=== PATIENT | male | born 1980 | race Caucasian/White ===

== ENCOUNTER → 2018-05-06 10:02 | Outpatient (CLI) | payer OTHER, SELFPAY | PROVIDERS: Family Provider Nurse Practitioner; PCP Nurse Practitioner; Visit Provider Nurse Practitioner | DX: R06.02 Shortness of breath (principal) | CPT/HCPCS: 71046 ==

== ENCOUNTER → 2018-05-06 10:39 | Outpatient (CLI) | payer OTHER, SELFPAY | PROVIDERS: Family Provider Nurse Practitioner; PCP Nurse Practitioner; Visit Provider Nurse Practitioner | DX: R00.2 Palpitations (principal) | CPT/HCPCS: 93225; 93226 ==

== ENCOUNTER → 2018-07-01 10:06 | Outpatient (CLI) | payer OTHER, SELFPAY ==
--- NOTE | 2018-07-01 10:08 | STEWCON_ITS ---
Reason For Study: CHEST PAIN Stress Results Protocol: Stress Echocardiogram Maximum Predicted HR: 181 bpm Target HR: 154 bpm% Maximum Pr edicted HR: 94 % DurationHeart Rate Stage (mm:ss) (bpm) BP BASELINE 70 120/80 MARVA PROTOCOL- STAGE 1 3:00 10 1 128/86 MARVA PROTOCOL- STAGE 2 3:00 12 3 140/84 MARVA PROTOCOL- STAGE 3 3:00 12 9 158/80 MARVA PROTOCOL- STAGE 4 3:00 14 1 166/84 MARVA PROTOCOL- STAGE 5 3:00 17 1 / RECOVERY 110 134/8 4 Stress Duration: 15:00 mm:ss Maximum Stress HR: 171 bpmME TS: 17 Baseline Echocardiogram Findings Stress Echo Wall motion Data Resting WMIntermediate WMStress WM Resting Wall Motion Wall Motion Stress All segments Normal. All segments Hyperkinetic. Ejection Fraction 55 %. Ejection Fraction 70 %. Stress Results Heart rate response: appropriate Blood pressure response: normal resting BP - appropriate response Arrhythmias: rare PAC / PVC during exercise and recovery Functional capacity: excellent Stopped secondary to: dyspnea. EKG Data Baseline ECG: NSR. Exercise ECG: no obvious ECG changes. Symptoms with Stress No c/o chest discomfort during exercise / recovery. Interpretation Summary Negative (adequate) Stress Echocardiogram Ordering Physician: Romain Leiva Referring Physician: Sara Horner VAT OPERATOR Performed By: Evie Tripathi, MELODIE, RVT
== END ==
PROVIDERS: Family Provider Nurse Practitioner; PCP Nurse Practitioner; Referring Provider Internal Medicine Cardiovascular Disease; Visit Provider Internal Medicine Cardiovascular Disease
DX: R07.9 Chest pain, unspecified (principal)
CPT/HCPCS: 93017; 93350

== ENCOUNTER → 2019-06-22 16:51 | Outpatient (CLI) | payer OTHER, SELFPAY ==
[2018-06-19 16:08] VITALS: BMI 31.4
--- NOTE | 2019-06-22 16:53 | RAD_ITS ---
STUDY: X-RAY - RIGHT ELBOW REASON FOR EXAM: Male, 38 years old. Pain TECHNIQUE: 3 view(s) of the elbow. COMPARISON: None. FINDINGS: The bones of the elbow are intact and located. Mineralization is normal. Soft tissues are intact. There is no joint effusion. RAD/Elbow min 3 Views IMPRESSION: Normal x-ray examination of the elbow. Electronically Signed: Peter Arango, at 19:46 EDT Tel , Service support ,
== END ==
PROVIDERS: Family Provider Nurse Practitioner; PCP Nurse Practitioner; Referring Provider Nurse Practitioner; Visit Provider Nurse Practitioner
DX: M25.521 Pain in right elbow (principal)
CPT/HCPCS: 73080

== ENCOUNTER → 2023-01-26 | Outpatient (CLI) | payer BC, SELFPAY ==
[2023-01-26 10:01] LABS: Absolute Lymphocyte Count 1.81 X10^3/uL (0.83-4.51); Absolute Neutrophil Count 2.7 X10^3/uL (2.0-7.7); Basophil# 0.03 X10^3/uL; Basophil% 0.6 % (0-1); Eosinophil# 0.13 X10^3/uL; Eosinophils% 2.6 % (0-5); Hematocrit 49.6 % (40-54); Hemoglobin 17.1 g/dL (13.0-16.5); Lymphocyte # 1.81 X10^3/ul (0.83-4.51); Lymphocyte % 35.8 % (19-41); Mean Corp Hgb Conc 34.5 g/dL (32-36); Mean Corpuscular Hgb 30.8 pg (27.0-32.0); Mean Corpuscular Volume 89.4 fL (80-94); Mean Platelet Vol. 10.3 fl (6.2-12.0); Monocyte# 0.39 X10^3/uL; Monocyte% 7.7 % (0-10); NRBC Flagged by Analyzer 0 % (0-5); Neutrophil # 2.66 X10^3/uL (2.7-7.7); Neutrophil % 52.7 % (47-70); Platelet Count 205 K/mm3 (150-450); RBC Distribution Width CV 11.9 % (11.6-14.6); Red Blood Count 5.55 M/mm3 (4.6-6.2); White Blood Count 5.1 K/mm3 (4.4-11.0)
[2023-01-26 10:18] LABS: ALB/GLOB Ratio 1.3 RATIO (0.9-2.4); AST(SGOT) 28 U/L (15-37); Alanine Aminotransfer ALT/SGPT 27 U/L (16-61); Albumin, Serum 4.1 g/dL (3.2-5.0); Alkaline Phosphatase 84 U/L (45-117); Anion Gap 7 (5-15); BUN 15 mg/dL (7-18); BUN/Creat Ratio 20.3 RATIO (10-20); Chloride 108 mmol/L (98-107); Cholesterol 183 mg/dL (200); Creatinine, Serum 0.74 mg/dL (0.70-1.30); EST Glomerular Filtration Rate 122 mL/min (>60); Est Glom Filt Rate - Afr Amer 148 mL/min (>60); Globulin 3.2 g/dL (2.2-4.2); Glucose 84 mg/dL (74-106); High Density Lipoprotein 35 mg/dL; Potassium 4.3 mmol/L (3.5-5.1); Protein, Total 7.3 g/dL (6.4-8.2); Sodium Level 142 mmol/L (136-145); Triglycerides 220 mg/dL; Very Low Density Lipoprotein 44 mg/dL (5-40)
[2023-01-28 09:09] LABS: Vitamin D,25 Hydroxy 35.1 ng/mL
== END | disposition home or self-care (01) ==
LOC: LAB 08:56
PROVIDERS: PCP Nurse Practitioner Family; Referring Provider Nurse Practitioner Family; Visit Provider Nurse Practitioner Family
DX: E55.9 Vitamin D deficiency, unspecified (principal); Z13.220 Encounter for screening for lipoid disorders; F41.9 Anxiety disorder, unspecified
CPT/HCPCS: 36415; 80053; 80061; 82306; 85025

== ENCOUNTER 2023-04-21 13:45 | Emergency (ER) | payer BC, SELFPAY ==
[2023-04-21 13:45] VITALS: BP 134/98; PULSE 93; RESP 18; TEMP 36.2; O2SAT 98; BMI 32.3
[2023-04-21 13:49] VITALS: RESP 17; O2SAT 98
--- NOTE | 2023-04-21 14:03 | EDS_ITS ---
HPI History of Present Illness Chief Complaint: Eye Problem Detail of Chief Complaint: Right eye visual change. Informant: patient Onset/Context/Timing Location: Right Eye Onset: Days Context: Gradual Onset Timing: Continuous Current Severity: Mild Maximum Severity: Mild Associated Symptoms Associated Symptoms - Eyes: Negative for Burning, Crusting, Drainage, Eyelid swelling, Foreign body sensation, Itching, Matting, Pain, Photophobia or Redness Visual Changes: right: Blurred vision History of injury: No Visual correction: Glasses and Corrective contact lenses Narrative Narrative: 42-year-old male diagnosed with right eye optic nerve inflammation by his alcohol Dr. Osborne and got upset about it on a Saturday this MrJersey Greers with the optic nerve inflammation his obesity he said he saw you on in the office you diagnosed him with suspected optic nerve inflammation. Patient states he feels like it is getting worse. I did speak to his medical research scientist Dr. sOborne. If possible she would like the MRI done today. Prior similar symptoms: Yes Recent Illness/Hospitalization: No PFSH PFSH Medical History (Updated 04/21/23 @ 18:[address] Jr Benítez MD) Carpal tunnel syndrome on right Chewing tobacco use Essential hypertension Palpitations Premature supraventricular beats Home Medications amlodipine 2.5 mg tablet 2.5 mg PO DAILY #90 tabs 07/17/22 [Rx Last Taken Unknown] aspirin 81 mg capsule 81 mg PO DAILY 04/21/23 [History Last Taken Unknown] Allergy/AdvReac Type Severity Reaction Status Date / Time duloxetine [From Cymbalta] Allergy Severe foggy Verified 04/21/23 13:47 Penicillins AdvReac Severe Diarrhea, Verified 04/21/23 13:47 Vomiting Surgical History History of tonsillectomy Social History Smoking Status: Never smoker alcohol intake: current substance use type: does not use ROS ROS ED ROS Narrative Right eye decreasing vision. Review of Systems ROS Unobtainable: Denies due to encephalopathy Constitutional Constitutional ED: Denies chills or fever(s) Eyes Eyes: Reports blurry vision and change in vision; Denies diplopia ENT ENT ED: Denies ear pain or rhinorrhea Cardiovascular Cardiovascular: Denies chest pain Respiratory/Chest Respiratory/Chest: Denies cough Gastrointestinal Gastrointestinal: Denies abdominal pain Genitourinary Genitourinary ED: Denies dysuria or hematuria Musculoskeletal Musculoskeletal: Denies arthralgias Integumentary Denies abscess Neurologic Neurologic: Denies headache(s) Psychiatric Psychiatric: Denies anxiety Endocrine Endocrinology: Denies polydipsia Hematologic/Lymphatic Hematologic/Lymphatic: Denies easy bleeding Allergic/Immunologic Allergic/Immunologic ED: Denies mouth swelling or tongue swelling EXAM Physical Exam Narrative Exam Narrative: 3-year-old male no acute distress. Vital signs stable afebrile. HEENT exam pupils round reactive light extra motions are intact. No facial droop. Lungs clear. Heart regular rhythm. Abdomen soft nontender. Moving all 4 extremities. Neurologic exam 5-5 meat blender strength. Dorsi plantarflexion intact. Subjective decreased vision right eye. He wears glasses. Const Vital Signs: 04/21/23 13:45 04/21/23 13:49 Temperature 97.1 F L Temperature Source Temporal Pulse Rate 93 Respiratory Rate 18 17 Blood Pressure 134/98 H Blood Pressure Mean 110 Pulse Ox 98 98 Oxygen Delivery Method Nasal Cannula Room Air Positive well nourished and well developed; Negative for obese, cachectic, contractures or unkempt General Appearance ED: well developed and NAD; Negative for unkempt, cachectic or contractures Nutritional Appearance: Negative for cachectic or obese HEENT Denies other atraumatic; Negative for trauma, tenderness or other Neck no lymphadenopathy, supple and no JVD General: Negative for tenderness Resp normal respiratory effort, no retractions, no use of accessory muscles and clear to auscultation bilaterally Cardio regular rate, regular rhythm, S1 normal heart sound, S2 normal heart sound and no murmurs GI non-tender, non-distended and no masses Inspection: Negative for other Auscultation: normoactive bowel sounds Palpation: soft Back/Spine no CVA tenderness General Back: Negative for CVA tenderness Extremity normal to inspection General Extremety ED: Negative for edema General Extremity: Negative for edema Neuro oriented x3, CN's II-XII intact bilaterally and moves all extremities Sensorium / Orientation: alert, oriented to person, oriented to place and oriented to time; Negative for orientation impaired Motor Exam: strength 5/5 throughout Psych Appearance: Negative for unkempt Attitude: No agitated Mood & Affect: Negative for depressed, anxious or tearful Skin no wounds Lesions: no lesions Rashes: no rashes Trauma: Negative for abrasion or laceration MDM MDM MDM Narrative Medical decision making narrative: 42-year-old male with worsening vision in his right eye. Patient has seen Dr. Osborne with ophthalmology in the last several months. The concern is for an optic nerve inflammation. I did speak to her today after my evaluation the patient. She wanted an MRI done of the brain and orbits. Patient's visual acuity in the ER was 2015 left and 20/20 right with the patient's glasses on. MRI of the orbits was read as normal by the radiologist. Discussed with Dr. Osborne. Patient be discharged home with outpatient follow-up. Were trying to get the MRI of the brain evaluated. History & Record Review Discussion w/independent historian: Patient and Family Discharge Plan Triage Chief Complaint: Eye Problem ED Provider: Jr Benítez Dx/Rx/DC Orders Clinical Impression: Alteration in vision Instructions: ED Blurred Vision Prescriptions: No Action aspirin 81 mg capsule 81 mg PO DAILY amlodipine 2.5 mg tablet 2.5 mg PO DAILY Qty: 90 3RF Primary Care Provider: Jennifer Mora Referrals: Angélica Osborne MD [Med Staff - Active Staff] - As soon as possible Jennifer Mora, [employer] [Primary Care Provider] - Activity Restrictions/Additional Instructions: MRI was read as normal. I spoke to Dr. Osborne. Call her office and follow-up with her in 1 to 2 weeks. Disposition Disposition: Home, Self Care
--- NOTE | 2023-04-21 14:10 | MRI_ITS ---
EXAM: MR ORBITS WITHOUT AND WITH INTRAVENOUS CONTRAST () CLINICAL INDICATION: right eye visual change, BLURRED VISION X 1 WEEK; PROGRESSIVELY WORSENING TECHNIQUE: Multiplanar and multisequence MR images of the orbits without and with intravenous contrast. CONTRAST: 18ML IV CLARISCAN COMPARISON: No relevant prior studies available. FINDINGS: ORBITS: Unremarkable. Optic globes are unremarkable.. Unremarkable optic nerve sheath and nerves. Unremarkable intraconal and extraconal spaces. Extra-ocular muscles are unremarkable. OPTIC CHIASM: Unremarkable. Unremarkable chiasm and post chiasmatic tracts. SELLA: Unremarkable. Pituitary gland is normal in size and signal. Normal sella Turcica and suprasellar structures. CAVERNOUS SINUSES: Unremarkable. SINUSES: Unremarkable as visualized. Clear. SOFT TISSUES: Unremarkable. Preseptal and superficial soft tissues are unremarkable. Lacrimal glands are unremarkable. VASCULATURE: Unremarkable. Superior ophthalmic veins are symmetric. MRI/Orbit Face Neck W/WO Contrast IMPRESSION: Normal MRI of the orbits. Electronically Signed: Timoteo Fragoso MD at 17:17 EDT ,
[2023-04-21 17:02] VITALS: BP 131/96; PULSE 71; RESP 17; O2SAT 99
== END 2023-04-21 18:51 | disposition home or self-care (01) ==
PROVIDERS: Emergency Provider Emergency Medicine; PCP Nurse Practitioner Family; Visit Provider Emergency Medicine
DX: H53.8 Other visual disturbances (principal); I10 Essential (primary) hypertension; Z97.3 Presence of spectacles and contact lenses; Z79.82 Long term (current) use of aspirin; Z79.899 Other long term (current) drug therapy
CPT/HCPCS: 70543; 99284; A9575; A4216

== ENCOUNTER → 2023-04-25 | Outpatient (CLI) | payer BC, SELFPAY ==
[2023-04-25 18:08] LABS: Absolute Lymphocyte Count 1.86 X10^3/uL (0.83-4.51); Absolute Neutrophil Count 4.6 X10^3/uL (2.0-7.7); Basophil# 0.03 X10^3/uL; Basophil% 0.4 % (0-1); Eosinophil# 0.06 X10^3/uL; Eosinophils% 0.9 % (0-5); Hematocrit 50.2 % (40-54); Hemoglobin 17.2 g/dL (13.0-16.5); Lymphocyte # 1.86 X10^3/ul (0.83-4.51); Lymphocyte % 26.5 % (19-41); Mean Corp Hgb Conc 34.3 g/dL (32-36); Mean Corpuscular Hgb 30.7 pg (27.0-32.0); Mean Corpuscular Volume 89.5 fL (80-94); Mean Platelet Vol. 10.7 fl (6.2-12.0); Monocyte# 0.41 X10^3/uL; Monocyte% 5.8 % (0-10); NRBC Flagged by Analyzer 0 % (0-5); Neutrophil # 4.62 X10^3/uL (2.7-7.7); Neutrophil % 65.7 % (47-70); Platelet Count 213 K/mm3 (150-450); RBC Distribution Width CV 12.1 % (11.6-14.6); RBC Distribution Width SD 39.5 fl (35.1-43.9); Red Blood Count 5.61 M/mm3 (4.6-6.2)
[2023-04-25 18:22] LABS: Erythrocyte Sedimentation Rate 2 mm/hr (0-20)
[2023-04-25 18:42] LABS: CRP < 2.90 mg/L (0.0-3.0)
[2023-04-25 20:16] LABS: HIV - WCH Non-Reactive (Nonreactive); Syphilis Antibodies Non-reactive
[2023-05-04 14:10] LABS: Angiotensin Convert Enzyme 45 U/L (14-82); B. henselae IgG Negative titer (Neg:<1:320); B. henselae IgM Negative titer (Neg:<1:100); B. quintana IgG Negative titer (Neg:<1:320); B. quintana IgM Negative titer (Neg:<1:100); Cytoplasmic Ab (C-ANCA) <1:20 titer (Neg:<1:20); HLA B27 Negative (.); PROEL- A/G Ratio 1.5 (0.7-1.7); PROEL- Albumin 4.4 g/dL (2.9-4.4); PROEL- Alpha-1 Globulin 0.2 g/dL (0.0-0.4); PROEL- Alpha-2 Globulin 0.5 g/dL (0.4-1.0); PROEL- Beta Globulin 1.1 g/dL (0.7-1.3); PROEL- Gamma Globulin 1.1 g/dL (0.4-1.8); PROEL- Globulin, Total 2.9 g/dL (2.2-3.9); PROEL- TOTAL PROTEIN 7.3 g/dL (6.0-8.5); Perinuclear Ab (P-ANCA) <1:20 titer (Neg:<1:20); QNTFERON TB Mitogen Value > 10.00 IU/mL (.); QNTFERON TB Nil Value 0.02 IU/mL (.); QNTFERON TB1+ Ag Value 0.05 IU/mL (.); QNTFERON TB2+ Ag Value 0.04 IU/mL (.); QNTIFERON TB Positive Criteria Negative (Negative); Toxoplasma Gondii IgG 11.9 IU/mL (0.0-7.1); Toxoplasma Gondii IgM < 3.0 AU/mL (0.0-7.9); Treponema palladium Ab (FTA) Non Reactive (Non Reactive)
== END | disposition home or self-care (01) ==
PROVIDERS: PCP Nurse Practitioner Family
DX: I10 Essential (primary) hypertension (principal); H47.10 Unspecified papilledema; H35.033 Hypertensive retinopathy, bilateral; H43.393 Other vitreous opacities, bilateral
CPT/HCPCS: 36415; 81374; 82164; 83036; 84165; 85025; 85652; 86140; 86256; 86480; 86611; 86703; 86777; 86778; 86780

== ENCOUNTER → 2023-11-27 | Outpatient (CLI) | payer BC, SELFPAY ==
--- OUTSIDE RECORDS SUMMARY | 2023-11-27 08:03 | XMS RPT_ITS | CCD ---
Author Name Unknown Address [address] [place] [address] Organization [facility] Care Team Providers Care Hand Carver Name Role Phone Sara Horner Unavailable Lata Jaime Unavailable Romain Leiva Unavailable Kervin Ma Unavailable Unavailable Unavailable Unavailable Kj Hung Unavailable Sara Horner Unavailable Unavailable Sara Horner Unavailable Lata Jaime Unavailable Dr. Kj Hung MD Unavailable [phone] Romain Leiva MD Unavailable Jennifer Mora CNP Unavailable Kervin Rubin LPN Unavailable Unavailable Kezia Sarkar LPN Unavailable Unavailable Unavailable Unavailable Sara Horner Attending Unavailable Sara Horner Referring Unavailable Sara Horner Consulting Unavailable Maikol Bob Unavailable Allergies Allergy Classification Reported Allergen(s) Allergy Type Date of Onset Reaction(s) Facility (11 sources) DULoxetine; Translations: [Cymbalta *ANTIDEPRESSANTS *] Drug Allergy [facility] Work Phone: Medications Completed/Discontinued Medications Medication Drug Class(es) Dates Sig (Normalized) Sig (Original) amLODIPine 2.5 mg oral tablet (5 sources) Dihydropyridine Calcium Channel Latoya take 1 mg by mouth once daily amLODIPine 2.5 mg oral tablet daily (2.5 mg) Active Comments: Per cardio Problems Active Problems Problem Classification Problem Date Documented Da te Episodic/Chronic Anxiety disorders (20 sources) Panic disorder; Translations: [Anxiety] Resolved: 06-25-2017 06-25-2017 Chronic Past or Other Problems Problem Classification Problem Date Documented Da te Episodic/Chronic Allergic reactions (5 sources) Contact dermatitis; Translations: [Contact Dermatitis] Resolved: 06-25-2017 06-25-2017 Episodic Disorders of teeth and jaw (11 sources) Jaw pain Resolved: 06-25-2017 06-25-2017 Episodic Headache; including migraine (5 sources) Headache; Translations: [Headache] Resolved: 06-25-2017 06-25-2017 Episodic Lymphadenitis (5 sources) Lymphadenitis; Translations: [Lymphadenitis] Resolved: 06-25-2017 06-25-2017 Episodic Nonspecific chest pain (5 sources) Chest pain at rest; Translations: [Chest Pain at Rest] Resolved: 06-25-2017 06-25-2017 Episodic Other circulatory disease (6 sources) H/O: hypertension; Translations: [Hypertension] Resolved: 06-25-2017 06-25-2017 Episodic Other nervous system disorders (4 sources) Carpal tunnel syndrome of right wrist; Translations: [Carpal tunnel syndrome on right] 02-17-2019 Other skin disorders (6 sources) H/O: skin disorder; Translations: [Contact Dermatitis] Resolved: 06-25-2017 06-25-2017 Episodic Residual codes; unclassified (12 sources) H/O: Disorder; Translations: [Lymphadenitis] Resolved: 06-25-2017 06-25-2017 Episodic Unclassified (6 sources) Carpal tunnel syndrome on right Unclassified (6 sources) History of headache; Translations: [Headache] Resolved: 06-25-2017 06-25-2017 Unclassified (11 sources) odontogenic pain Resolved: 06-25-2017 06-25-2017 Unclassified (3 sources) BMI 31.0-31.9,adult Unclassified (3 sources) Elbow pain, right Viral infection (11 sources) Genital warts Resolved: 06-25-2017 06-25-2017 Episodic Results Test Name Value Interpretation Reference Range Facil ity Vital Signs Date Time Vital Sign Value Performing Clinician Facility 01-21-2023 14:51-0400 Body height 167.64 cm Kezia Sarkar LPN [facility] Work Phone: 01-21-2023 14:51-0400 Body mass index (BMI) [Ratio] 33.25 kg/m2 Kezia Sarkar ABBY [facility] Work Phone: 01-21-2023 14:51-0400 Body surface area Derived from formula 2.03 m2 Kezia Sarkar ABBY [facility] Work Phone: 01-21-2023 14:51-0400 Body temperature 98.2 [degF] Kezia Sarkar ABBY [facility] Work Phone: Encounters Encounter Date Encounter Type Care Provider Facility Start: 04-23-2023 End: 04-23-2023 Annotation/Addendum Sara Horner [facility] Start: 01-28-2023 End: 01-28-2023 Annotation/Addendum Sara Horner [facility] Start: 01-21-2023 ambulatory Sara Guptacar [facility] Start: 01-21-2023 End: 01-26-2023 Office outpatient visit 15 minutes [facility] Start: 01-21-2023 Review Sara Guptavilmasantino [facility] Start: 06-22-2019 End: 06-22-2019 Office outpatient visit 15 minutes Sara Horner [facility] Start: 06-22-2019 Review Sara Guptavilmasantino [facility] Start: 02-17-2019 End: 02-17-2019 Office outpatient visit 15 minutes Sara Horner [facility] Start: 02-17-2019 Review Sara Guptavilmasantino [facility] Start: 08-19-2018 End: 08-19-2018 Office outpatient visit 25 minutes Sara [facility] Start: 05-20-2018 End: 05-20-2018 Office outpatient visit 15 minutes Sara [facility] Start: 05-09-2018 End: 05-09-2018 Annotation/Addendum Sara Horner [facility] Start: 05-06-2018 End: 05-06-2018 Annotation/Addendum Sara Carter [facility] Start: 05-06-2018 End: 05-06-2018 Office outpatient visit 25 minutes Sara [facility] Start: 08-23-2017 End: 08-23-2017 Office outpatient visit 10 minutes Sara Horner [facility] Start: 08-05-2017 End: 08-05-2017 Annotation/Addendum Sara Horner [facility] Start: 06-25-2017 End: 06-25-2017 Office outpatient visit 15 minutes Sara Horner [facility] Start: 03-30-2016 End: 03-30-2016 Phone Encounter Sara Horner [facility] Start: 03-28-2016 End: 03-28-2016 Office outpatient visit 15 minutes Sara Horner [facility] Start: 02-07-2016 End: 02-07-2016 Annotation/Addendum Sara Horner [facility] Start: 02-06-2016 End: 02-06-2016 Office outpatient visit 15 minutes Sara Horner [facility] Start: 04-04-2015 End: 04-04-2015 Office outpatient visit 25 minutes Sara Horner [facility] Start: 03-21-2015 End: 03-21-2015 Office outpatient new 45 minutes Sara Horner [facility] Procedures Date Procedure Procedure Detail Performing Clinician Start: 05-02-2023 End: 05-02-2023 Cardiology Visit Report Procedure Note: See Note; NOTES: [facility] [address] [place] [address] OFFICE VISIT Date of Service: 05/02/23 MR#: [id number] Acct: [id number] Name: EMERY PAREDES Rep #: [id number] : 1980 Provider: ARISTEO sweeney Age/Sex: 42/M Location: [facility] Status: Signed [facility] History of Present Illness Details: This is a 42-year-old white male who presents today for outpatient cardiovascular follow-up based upon concerns of palpitations/cardiac ectopy and hypertension. He denies chest, arm, jaw, or neck discomfort. He states intermittent palpitations daily. This is self limiting and resolves on its own. He denies bilateral lower extremity edema. He denies claudication. He states shortness of breath with activity such as edging his yard. He feels this to be more than that activity should cause. He denies shortness of breath at rest, orthopnea, or PND. He denies chronic cough. He denies significant, sudden weight gain. He denies lightheadedness, dizziness, near-syncope, or syncope. He denies blood in urine, blood in stool, or epistaxis. He denies fever with chills. He denies myalgia. He denies fatigue. His exercise level has remained stable. Intake Vital Signs 01/12/22 13:14 04/21/23 13:45 05/02/23 14:32 Height 5 ft 6 in 5 ft 6 in 5 ft 6 in Weight: 204 lb BMI 32.9 BP 135/91 H Blood Pressure Location Lt brachial Position Sitting Respiration 18 Pulse 92 Pulse Source Monitor Pulse Oximetry (%) 96 Intake Visit Reasons: 1 Y FU//PREV PFM Search Engine Optimization Manager Required: No Is patient in pain?: No Allergies duloxetine [From Cymbalta] Allergy (Severe, Verified 05/02/23 14:32) foggy Penicillins Adverse Reaction (Severe, Verified 05/02/23 14:32) Diarrhea, Vomiting Medications aspirin 81 mg capsule 81 mg PO DAILY 04/21/23 [History Confirmed 04/21/23] amlodipine 5 mg tablet 5 mg PO DAILY #90 tabs 05/02/23 [Rx Confirmed 05/02/23] prednisone 50 mg tablet 60 mg PO DAILY 05/02/23 [History Confirmed 05/02/23] PFS Medical History Carpal tunnel syndrome on right Chewing tobacco use Essential hypertension Palpitations Premature supraventricular beats Surgical History History of tonsillectomy Social History Smoking Status: Never smoker alcohol intake: current substance use type: does not use ROS Const Const: Negative for fatigue, weakness, body ache, fever(s) or chills ENT ENT: Negative for dizziness or Nosebleed/epistaxis Cardio Chest Pain: No Palpitations: No Edema: None Muscle aches with walking: None Resp Respiratory: Negative for SOB with activity, SOB at rest, SOB orthopnea SOB lying down, Cough or paroxysmal nocturnal dyspnea GI GI: Negative nausea, vomiting blood/hematemesis, bright, red blood in stools or black,tarry stools : Negative for hematuria or frequent nighttime urination/ nocturia Musc Musc: Negative for muscle aches/ myalgia Skin Skin: Negative non-healing lesions or rash Neuro Neuro: Negative for dizziness, lightheadedness, near syncope, syncope, orthostatic symptoms or weakness Endo Endo: Negative for fatigue Allergy Allergy/Immunology: Negative for rash Cardiology Exam Const Appearance: cooperative, healthy appearing, comfortable and no acute distress Nutritional Appearance: well nourished and obese Orientation: alert, awake and oriented x3 Head Head: normal to inspection Ears: hearing grossly normal bilaterally Nose: external nose normal Face and Sinus: face symmetric Mouth: moist mucous membranes Eyes General: appearance normal, both eyes and all related structures Eyelids: eyelids normal EOM: EOM intact bilaterally Neck Neck: normal visual inspection and no JVD Carotids: normal carotid upstroke Chest Chest inspection: normal inspection of the chest, symmetric chest movement and normal respiratory effort; Negative cough Auscultation: Bilateral: Clear to Auscultation Cardio Rate: regular rate Rhythm: regular rhythm Heart sounds: S1 normal and S2 normal; Negative rub, gallop or murmur GI GI: normal to inspection and obese Neuro General: patient alert, patient awake, patient oriented x3 and CN's II-XI intact bilaterally Skin Skin: no rashes or lesions noted Extremities Pulses: Normal: Right Posterior Tibial Pulse, Left Posterior Tibial Pulse, Right Radial Pulse and Left Radial Pulse Lower Extremity Edema: None: Bilateral Psych Psychological: normal affect Supplemental Info Supplemental Information Echocardiogram: 04/07/2015 Interpretation Summary The estimated ejection fraction is 65 %. Normal diastology for age. Unable to estimate RV systolic pressure. Normal transthoracic echocardiogram. Stress Echo: 07/01/2018 Interpretation Summary Negative (adequate) Stress Echocardiogram Labs: LDL Cholesterol 104 mg/dL (0-130) HDL Cholesterol 35 mg/dL (40-) L Cholesterol 183 mg/dL (200) Triglycerides 220 mg/dL (-199) H Diagnostics: Electrocardiogram Stress Echocardiogram Chest X-Ray Pulmonary: No Data to Display Past Visits: Cardiology Visit 05/02/23 Assessment and Plan Assessment and Plan (1) Palpitations: Status: Acute Plan: This appears stable. We will continue to observe. Holter monitor in April 2018 showed ventricular ectopy 0.3% and supraventricular to be 0.6%. Echocardiogram in March 2015 showed ejection fraction of 65%. Stress test in June 2018 was negative for ischemia. (2) Essential hypertension: Status: Chronic Plan: He has seen multiple print support specialist with concerns of obstructive sleep apnea or elevated blood pressure causing issues. His higher blood pressure today may be result of prednisone. Due to eye concerns, will advance amlodipine to 5 mg p.o. daily. He was asked to monitor his blood pressure regularly and contact our office if his blood pressure remains elevated to consider further medication adjustment. He currently has polysomnogram pending for further evaluation. Risk factor and lifestyle modification was strongly encouraged. Medications: Changed From amlodipine 2.5 mg PO DAILY 90 tabs 3RF To amlodipine 5 mg PO DAILY 90 tabs 3RF Plan Details Additional Comments: Thank you for allowing us to participate in the patients plan of care, if you have any questions please do not hesitate to call. This note was generated using a voice recognition system and there may be incorrect words, spelling or punctuation that were not noted when reviewing the office note prior to saving. Portions of this documentation were copied and pasted from previous office visit notes to provide a cohesive continuity of the history. The note has been reviewed, edited, and updated, as necessary. Follow Up: 12-15 Months (BUSINESS DEVELOPMENT CONSULTANT) 6-7 Months (DIRECTOR PAYMENT/PA) Coding Level of Care Code Off vis,est,level 3 Diagnoses Palpitations R00.2 Essential hypertension I10 Coding Level of Care Code Off vis,est,level 3 Diagnoses Palpitations R00.2 Essential hypertension I10 05/02/23 1537 <Electronically signed by Zeke Pineda NP DIRECTOR PAYMENT-C> Date __ Zeke Pineda NP DIRECTOR PAYMENT-C Cosigner Signature: Date __ (if applicable) CC: DIRECTOR PAYMENTRenata Guptavilmasantino Start: 04-21-2023 End: 04-21-2023 Orbit Face Neck W/WO Contrast Procedure Note: See Note; NOTES: [facility] Imaging Services [address] [place] [address] [place] [address] Orbit Face Neck W/WO Contrast MR#: [id number] Acct: [id number] Name: EMERY PAREDES Rep #: [id number] : 1980 M 42 From: Timoteo Kaufman PCP: Jennifer Mora DIRECTOR PAYMENT-C Status: REG ER Study: Orbit Face Neck W/WO Contrast Date of Exam: Exam# [id number] Ordering Dr: Jr Benítez MD EXAM: MR ORBITS WITHOUT AND WITH INTRAVENOUS CONTRAST () CLINICAL INDICATION: right eye visual change, BLURRED VISION X 1 WEEK; PROGRESSIVELY WORSENING TECHNIQUE: Multiplanar and multisequence MR images of the orbits without and with intravenous contrast. CONTRAST: 18ML IV CLARISCAN COMPARISON: No relevant prior studies available. FINDINGS: ORBITS: Unremarkable. Optic globes are unremarkable.. Unremarkable optic nerve sheath and nerves. Unremarkable intraconal and extraconal spaces. Extra-ocular muscles are unremarkable. OPTIC CHIASM: Unremarkable. Unremarkable chiasm and post chiasmatic tracts. SELLA: Unremarkable. Pituitary gland is normal in size and signal. Normal sella Turcica and suprasellar structures. CAVERNOUS SINUSES: Unremarkable. SINUSES: Unremarkable as visualized. Clear. SOFT TISSUES: Unremarkable. Preseptal and superficial soft tissues are unremarkable. Lacrimal glands are unremarkable. VASCULATURE: Unremarkable. Superior ophthalmic veins are symmetric. MRI/Orbit Face Neck W/WO Contrast IMPRESSION: Normal MRI of the orbits. Electronically Signed: Timoteo Fragoso MD at 17:17 EDT Reading Location ID and State: [facility] / [place] , Service support , CC: DIRECTOR PAYMENT-C Jennifer Mora; Dr. Jr Benítez MD Staying Machine Operator: Signed Sara Horner Start: 04-21-2023 End: 04-21-2023 Emergency Department Summary Procedure Note: See Note; NOTES: [facility] Medical Records Department [address] [place] [address] Emergency Department Summary 04/21/23 MR#: [id number] Acct: [id number] Name: EMERY PAREDES Rep #: [id number] : 1980 42 From: Jr Benítez MD PCP: ARISTEO Chen Status:DEP ER Location: ED HPI History of Present Illness Chief Complaint: Eye Problem Detail of Chief Complaint: Right eye visual change. Informant: patient Onset/Context/Timing Location: Right Eye Onset: Days Context: Gradual Onset Timing: Continuous Current Severity: Mild Maximum Severity: Mild Associated Symptoms Associated Symptoms - Eyes: Negative for Burning, Crusting, Drainage, Eyelid swelling, Foreign body sensation, Itching, Matting, Pain, Photophobia or Redness Visual Changes: right: Blurred vision History of injury: No Visual correction: Glasses and Corrective contact lenses Narrative Narrative: 42-year-old male diagnosed with right eye optic nerve inflammation by his alcohol Dr. Osborne and got upset about it on a Saturday this Mr. Percy Greers with the optic nerve inflammation his obesity he said he saw you on in the office you diagnosed him with suspected optic nerve inflammation. Patient states he feels like it is getting worse. I did speak to his circulation representative Dr. Osborne. If possible she would like the MRI done today. Prior similar symptoms: Yes Recent Illness/Hospitalization: No PFSH PFSH Medical History (Updated 04/21/23 @ 18:[address] Jr Benítez MD) Carpal tunnel syndrome on right Chewing tobacco use Essential hypertension Palpitations Premature supraventricular beats Home Medications amlodipine 2.5 mg tablet 2.5 mg PO DAILY #90 tabs 07/17/22 [Rx Last Taken Unknown] aspirin 81 mg capsule 81 mg PO DAILY 04/21/23 [History Last Taken Unknown] Allergy/AdvReac Type Severity Reaction Status Date / Time duloxetine [From Cymbalta] Allergy Severe foggy Verified 04/21/23 13:47 Penicillins AdvReac Severe Diarrhea, Verified 04/21/23 13:47 Vomiting Surgical History History of tonsillectomy Social History Smoking Status: Never smoker alcohol intake: current substance use type: does not use ROS ROS ED ROS Narrative Right eye decreasing vision. Review of Systems ROS Unobtainable: Denies due to encephalopathy Constitutional Constitutional ED: Denies chills or fever(s) Eyes Eyes: Reports blurry vision and change in vision; Denies diplopia ENT ENT ED: Denies ear pain or rhinorrhea Cardiovascular Cardiovascular: Denies chest pain Respiratory/Chest Respiratory/Chest: Denies cough Gastrointestinal Gastrointestinal: Denies abdominal pain Genitourinary Genitourinary ED: Denies dysuria or hematuria Musculoskeletal Musculoskeletal: Denies arthralgias Integumentary Denies abscess Neurologic Neurologic: Denies headache(s) Psychiatric Psychiatric: Denies anxiety Endocrine Endocrinology: Denies polydipsia Hematologic/Lymphatic Hematologic/Lymphatic: Denies easy bleeding Allergic/Immunologic Allergic/Immunologic ED: Denies mouth swelling or tongue swelling EXAM Physical Exam Narrative Exam Narrative: 3-year-old male no acute distress. Vital signs stable afebrile. HEENT exam pupils round reactive light extra motions are intact. No facial droop. Lungs clear. Heart regular rhythm. Abdomen soft nontender. Moving all 4 extremities. Neurologic exam 5-5 big data software engineer strength. Dorsi plantarflexion intact. Subjective decreased vision right eye. He wears glasses. Const Vital Signs: 04/21/23 13:45 04/21/23 13:49 Temperature 97.1 F L Temperature Source Temporal Pulse Rate 93 Respiratory Rate 18 17 Blood Pressure 134/98 H Blood Pressure Mean 110 Pulse Ox 98 98 Oxygen Delivery Method Nasal Cannula Room Air Positive well nourished and well developed; Negative for obese, cachectic, contractures or unkempt General Appearance ED: well developed and NAD; Negative for unkempt, cachectic or contractures Nutritional Appearance: Negative for cachectic or obese HEENT Denies other atraumatic; Negative for trauma, tenderness or other Neck no lymphadenopathy, supple and no JVD General: Negative for tenderness Resp normal respiratory effort, no retractions, no use of accessory muscles and clear to auscultation bilaterally Cardio regular rate, regular rhythm, S1 normal heart sound, S2 normal heart sound and no murmurs GI non-tender, non-distended and no masses Inspection: Negative for other Auscultation: normoactive bowel sounds Palpation: soft Back/Spine no CVA tenderness General Back: Negative for CVA tenderness Extremity normal to inspection General Extremety ED: Negative for edema General Extremity: Negative for edema Neuro oriented x3, CN's II-XII intact bilaterally and moves all extremities Sensorium / Orientation: alert, oriented to person, oriented to place and oriented to time; Negative for orientation impaired Motor Exam: strength 5/5 throughout Psych Appearance: Negative for unkempt Attitude: No agitated Mood Affect: Negative for depressed, anxious or tearful Skin no wounds Lesions: no lesions Rashes: no rashes Trauma: Negative for abrasion or laceration MDM MDM MDM Narrative Medical decision making narrative: 42-year-old male with worsening vision in his right eye. Patient has seen Dr. Osborne with ophthalmology in the last several months. The concern is for an optic nerve inflammation. I did speak to her today after my evaluation the patient. She wanted an MRI done of the brain and orbits. Patient's visual acuity in the ER was 2015 left and 20/20 right with the patient's glasses on. MRI of the orbits was read as normal by the radiologist. Discussed with Dr. Osborne. Patient be discharged home with outpatient follow-up. Were trying to get the MRI of the brain evaluated. History Record Review Discussion w/independent historian: Patient and Family Discharge Plan Triage Chief Complaint: Eye Problem ED Provider: Jr Benítez Dx/Rx/DC Orders Clinical Impression: Alteration in vision Instructions: ED Blurred Vision Prescriptions: No Action aspirin 81 mg capsule 81 mg PO DAILY amlodipine 2.5 mg tablet 2.5 mg PO DAILY Qty: 90 3RF Primary Care Provider: Jennifer Mora Referrals: Angélica Osborne MD [Med Staff - Active Staff] - As soon as possible Jennifer Mroa NP-C [Primary Care Provider] - Activity Restrictions/Additional Instructions: MRI was read as normal. I spoke to Dr. Osborne. Call her office and follow-up with her in 1 to 2 weeks. Disposition Disposition: Home, Self Care What to do if you have Problems For any increased pain, shortness of breath, bleeding, nausea or vomiting, chest pain, or any unexpected problems, contact your Primary Care Provider. Call [facility] ([phone]) or report to the closest Emergency Room. Call 911 if necessary. 04/21/232137 <Electronically signed by Jr Benítez MD> Cosigner Signature (if applicable): CC: DIRECTOR PAYMENTRenata Mora Signed Sara Horner Start: 01-12-2022 End: 03-01-2022 Cardiology Visit Report Procedure Note: See Note; NOTES: [facility] [address] [place] [address] [address] [place] [address] OFFICE VISIT Date of Service: 01/12/22 MR#: [id number] Acct: [id number] Name: EMERY PAREDES Rep #: [id number] : 1980 Provider: Dr. Romain shah MD Age/Sex: 41/M [place] [facility] Status: Signed [facility] History of Present Illness Details: This is a 41-year-old white male who presents today for outpatient cardiovascular follow-up based upon concerns of palpitations/cardiac ectopy and hypertension. Since his last outpatient cardiovascular visit on 08-01-2020 he states he did have to reschedule his previously scheduled follow-up visit. He states overall he is doing well. He denies any ongoing frequent palpitations or rapid heart rates. There is been no near-syncope or syncope. He has had no ongoing issues of classic angina pectoris at rest or with exertion or obvious CHF/pulmonary edema. He states he may note a rare palpitation. He states it does not necessarily interfere with his lifestyle. He states he is doing well on his current medications. His heart rate and blood pressure do appear to be well controlled. Intake Vital Signs 01/12/22 13:14 Height 5 ft 6 in Weight: 188 lb 3 oz BP 112/78 Blood Pressure Location Lt brachial Position Sitting Respiration 16 Pulse 68 Pulse Source Auscultation Intake Visit Reasons: 1 Y FU Search Engine Optimization Manager Required: No Accompanied by: Self Allergies duloxetine [From Cymbalta] Allergy (Severe, Verified 01/12/22 13:17) foggy Penicillins Adverse Reaction (Severe, Verified 01/12/22 13:17) Diarrhea, Vomiting Medications amlodipine 2.5 mg tablet 2.5 mg PO DAILY #90 tab 12/14/20 [Rx Confirmed 01/12/22] PFSH Medical History Carpal tunnel syndrome on right Chewing tobacco use Essential hypertension Palpitations Premature supraventricular beats Surgical History History of tonsillectomy Social History Smoking Status: Never smoker alcohol intake: current substance use type: does not use ROS Const Const: Negative for fatigue, weakness, frequent falls, excessive sweating, weight gain or weight loss Eyes Eyes: Negative for transient loss of vision, blurry vision or change in vision ENT ENT: Negative for dizziness or balance problems Cardio Chest Pain: No Palpitations: Yes ( every once in a while ) feels like its: skipping Edema: None Muscle aches with walking: None Resp Respiratory: Positive for SOB with activity (occasional going up incline); Negative for SOB at rest GI GI: Negative vomiting or vomiting blood/hematemesis : Negative for hematuria Musc Musc: Negative for muscle aches/ myalgia, muscle weakness, joint pain or balance problems Skin Skin: Negative non-healing lesions or rash Neuro Neuro: Negative for dizziness, lightheadedness, orthostatic symptoms, frequent falls, weakness or blurry vision Javier Hematologic/Lymphatic: Negative for easy bleeding Endo Endo: Negative for fatigue or excessive sweating Psych Psych: Negative for anxiety or depression Allergy Allergy/Immunology: Negative for hives and Negative for rash Supplemental Info Supplemental Information Echocardiogram: 04/07/2015 Interpretation Summary The estimated ejection fraction is 65 %. Normal diastology for age. Unable to estimate RV systolic pressure. Normal transthoracic echocardiogram. Stress Echo: 07/01/2018 Reason For Study: CHEST PAIN Stress Results Protocol: Stress Echocardiogram Maximum Predicted HR: 181 bpm Target HR: 154 bpm% Maximum Pr edicted HR: 94 % DurationHeart Rate Stage (mm:ss) (bpm) BP BASELINE 70 120/80 PB PROTOCOL- STAGE 1 3:00 10 1 128/86 PB PROTOCOL- STAGE 2 3:00 12 3 140/84 PB PROTOCOL- STAGE 3 3:00 12 9 158/80 PB PROTOCOL- STAGE 4 3:00 14 1 166/84 PB PROTOCOL- STAGE 5 3:00 17 1 / RECOVERY 110 134/8 4 Stress Duration: 15:00 mm:ss Maximum Stress HR: 171 bpmME TS: 17 Baseline Echocardiogram Findings Stress Echo Wall motion Data Resting WMIntermediate WMStress WM Resting Wall Motion Wall Motion Stress All segments Normal. All segments Hyperkinetic. Ejection Fraction 55 %. Ejection Fraction 70 %. Stress Results Heart rate response: appropriate Blood pressure response: normal resting BP - appropriate response Arrhythmias: rare PAC / PVC during exercise and recovery Functional capacity: excellent Stopped secondary to: dyspnea. EKG Data Baseline ECG: NSR. Exercise ECG: no obvious ECG changes. Symptoms with Stress No c/o chest discomfort during exercise / recovery. Interpretation Summary Negative (adequate) Stress Echocardiogram Labs: No Data to Display Diagnostics: Electrocardiogram Echocardiogram Stress Echocardiogram Chest X-Ray Pulmonary: No Data to Display Assessment and Plan Assessment and Plan (1) Palpitations: Status: Acute Plan - Dr. Romain Leiva MD: At the present time he appears be doing well. He will continue his current medical therapy for his cardiovascular risk/diagnosis and monitor for any concerning change in his underlying ectopy. (2) Premature supraventricular beats: Status: Acute Plan - Dr. Romain Leiva MD: Again he notes a rare palpitation. However overall he appears to be doing well. He will continue his current therapy and follow-up. (3) Essential hypertension: Status: Chronic Plan - Dr. Romain Leiva MD: His blood pressure appears to be well controlled. He will continue medical management and follow-up Plan Details Additional Comments: Thank you for allowing me to participate in the care of your patient. Please don't hesitate to call if any issues arise. This note was generated using a voice recognition system and there may be incorrect words, spelling or punctuation that were not noted when reviewing the office note prior to saving. Follow Up: 1 Year (with PFM ) COVID (Procedure Consent) Procedure Criteria Procedure Criteria: Yes Elective The surgeon/proceduralist and patient have discussed in detail the risk of exposure to and/or potential harm posed by the COVID-19 virus with having a surgery/procedure at this time versus the risk of??? delaying the surgery/procedure. It is not possible to know either the risk of delaying the surgery or procedure or chance of getting an infection with perfect accuracy, but a joint decision was made between the patient and the surgeon/proceduralist ???to proceed at this time with the scheduled surgery/procedure as indicated on the consent form. Coding Level of Care Code Off vis,est,level 3 Diagnoses Palpitations R00.2 Premature supraventricular beats I49.1 Essential hypertension I10 Coding Level of Care Code Off vis,est,level 3 Diagnoses Palpitations R00.2 Premature supraventricular beats I49.1 Essential hypertension I10 01/12/22 1350 <Electronically signed by Romain Leiva MD> Date __ Romain Leiva MD Cosigner Signature: Date __ (if applicable) CC: DIRECTOR PAYMENTRenata Sara Horner Start: 08-01-2020 End: 08-01-2020 Cardiology Visit Report Procedure Note: See Note; NOTES: [facility] [address] [place] [address] OFFICE VISIT Date of Service: 08/01/20 MR#: [id number] Acct: [id number] Name: EMERY PAREDES Rep #: [id number] : 1980 Provider: Dr. Romain shah MD Age/Sex: 39/M Location: [facility] [place] [facility] Status: Signed HPI HPI History of Present Illness Details: EMERY PAREDES, is a 39 year old white male who presents to the office today for outpatient cardiovascular follow-up of palpitations, cardiac ectopy, and possible hypertension. He still states overall he has been doing well. He notes since his visit from a year ago he has had no ongoing concerning symptoms with respect to ectopy or near syncope or syncope. He has had no issues of concerning chest discomfort or difficulty breathing. He has not required any other cardiovascular testing. Intake Vital Signs 08/01/20 Height 5 ft 6 in 08/01/20 Weight: 194 lb 8 oz 08/01/20 BMI 31.4 08/01/20 BP 118/80 08/01/20 Blood Pressure Location Lt brachial 08/01/20 Position Sitting 08/01/20 Respiration 16 08/01/20 Pulse 68 08/01/20 Pulse Source Auscultation Intake Visit Reasons: 1 y fu Search Engine Optimization Manager Required: No Accompanied by: Self Allergies duloxetine [From Cymbalta] Allergy (Severe, Verified 08/01/20 16:31) foggy Penicillins Adverse Reaction (Severe, Verified 08/01/20 16:31) Diarrhea, Vomiting Medications amlodipine 2.5 mg tablet 2.5 mg PO DAILY #90 tab 10/22/19 [Rx Confirmed 08/01/20] PFSH Medical History Premature supraventricular beats (Acute) Palpitations (Acute) Essential hypertension (Chronic) Carpal tunnel syndrome on right (Acute) Chewing tobacco use (Acute) Surgical History History of tonsillectomy (Resolved) Social History (Updated 08/01/20 @ 17:[address] Romain Leiva MD) Smoking Status: Never smoker alcohol intake: current substance use type: does not use ROS Const Const: Negative for fatigue, weakness, frequent falls, excessive sweating, weight gain or weight loss Eyes Eyes: Negative for transient loss of vision, blurry vision or change in vision ENT ENT: Negative for dizziness or balance problems Cardio Chest Pain: No Palpitations: Yes (occasional) feels like its: skipping Edema: None Muscle aches with walking: None Resp Respiratory: Negative for SOB with activity or SOB at rest GI GI: Negative vomiting or vomiting blood/hematemesis : Negative for hematuria Musc Musc: Negative for muscle aches/ myalgia, muscle weakness, joint pain or balance problems Skin Skin: Negative non-healing lesions or rash Neuro Neuro: Negative for dizziness, lightheadedness, orthostatic symptoms, frequent falls, weakness or blurry vision Javier Hematologic/Lymphatic: Negative for easy bleeding Endo Endo: Negative for fatigue or excessive sweating Psych Psych: Negative for anxiety or depression Allergy Allergy/Immunology: Negative for hives, Negative for rash Cardiology Exam Const Appearance: cooperative, healthy appearing, comfortable, no acute distress, well developed and well groomed Nutritional Appearance: overweight Orientation: alert, awake and oriented x3 Limitations: altered mental status Head Head: normal to inspection, normocephalic and atraumatic Ears: hearing grossly normal bilaterally Nose: external nose normal Mouth: oral mucosae normal Teeth and gingiva: dentition normal Eyes Eyelids: eyelids normal Conjunctivae: conjunctivae normal Pupils: PERRL EOM: EOM intact bilaterally Neck Neck: normal visual inspection and full ROM Carotids: normal carotid upstroke Chest Chest inspection: normal inspection of the chest, symmetric chest movement and normal respiratory effort Auscultation: Bilateral: Clear to Auscultation Cardio Palpation: normal PMI Rate: regular rate Rhythm: regular rhythm Heart sounds: S1 normal and S2 normal GI GI: normal to inspection, soft and bowel sounds present Neuro General: alert, awake, oriented x3, gait normal, moves all extremities and no focal sensory deficit Skin Skin: no rashes or lesions noted Extremities Pulses: Normal: Right Radial Pulse, Left Radial Pulse Lower Extremity Edema: None: Bilateral Psych Psychological: normal affect Assessment Plan 1. Palpitations R00.2 Plan At the present time he appears to be doing well. He will continue his current medical therapy. 2. Premature supraventricular beats I49.1 Plan Again he appears to be doing well with no concerning ectopy or associated symptoms. He will continue his medical management. 3. Essential hypertension I10 Plan His blood pressure appears to be under good control. He will continue medical therapy and follow- up. Plan Detail Additional Comments He will be scheduled for an outpatient visit approximately 1 year unless needed sooner. Follow Up 1 Year (with PFM) Coding Level of Care Code Off vis,est,level 3 Diagnoses Palpitations R00.2 Premature supraventricular beats I49.1 Essential hypertension I10 Coding Level of Care Code Off vis,est,level 3 Diagnoses Palpitations R00.2 Premature supraventricular beats I49.1 Essential hypertension I10 Supplemental Info Supplemental Information Transthoracic echocardiogram: 04-07-15 Interpretation Summary The estimated ejection fraction is 65 %. Normal diastology for age. Unable to estimate RV systolic pressure. Normal transthoracic echocardiogram. Stress echocardiogram: 07-01-18 Interpretation Summary Negative (adequate) Stress Echocardiogram Holter monitor: 05-06-18: Findings compatible sinus rhythm with PACs and PVCs with no sustained narrow or wide complex runs Diagnostics Electrocardiogram 06/19/18 Echocardiogram 04/07/15 Stress Echocardiogram 07/01/18 Chest X-Ray 05/06/18 08/01/20 1710 <Electronically signed by Romain Leiva MD> Date __ Romain Leiva MD Cosigner Signature: Date __ (if applicable) CC: ARISTEO Guptavilmasantino Sara Horner Start: 07-27-2019 End: 07-27-2019 Cardiology Visit Report Procedure Note: See Note; NOTES: [facility] [address] [place] [address] OFFICE VISIT Date of Service: 07/27/19 MR#: [id number] Acct: [id number] Name: EMERY PAREDES Rep #: [id number] : 1980 Provider: Romain Leiva MD Age/Sex: 38/M Location: [facility] [place] Status: Signed HPI HPI History of Present Illness Details: EMERY PAREDES, is a 38 year old white male who presents to the office today for outpatient cardiovascular follow-up of palpitations, cardiac ectopy, and possible hypertension. He notes he still has palpitations. However, he states he did not interfere with his lifestyle. He has had no near syncope or syncope. He has had no other resting or concerning chest discomfort. His diastolic blood pressure is still somewhat elevated this day. He states he was recently evaluated by his primary care physician. At that time his blood pressure was lower . He states no one else has been concerned about his blood pressure running higher. Intake Vital Signs07/27/19 Height 5 ft 6 in 07/27/19 Weight: 201 lb 07/27/19 Body Mass Index (BMI) 32.4 07/27/19 Blood Pressure 124/88 H 07/27/19 Blood Pressure Location Lt brachial Intake Visit Reasons: 1 Y FU Search Engine Optimization Manager Required: No Accompanied by: Self Allergies duloxetine [From Cymbalta] Allergy (Severe, Verified 07/27/19 15:58) foggy Penicillins Adverse Reaction (Severe, Verified 07/27/19 15:58) Diarrhea, Vomiting PFSH Medical History Premature supraventricular beats (Acute) Palpitations (Acute) Essential hypertension (Chronic) Carpal tunnel syndrome on right (Acute) Chewing tobacco use (Acute) Surgical History History of tonsillectomy (Resolved) Social History (Updated 07/27/19 @ 16:32 by Romain Leiva MD) Smoking Status: Never smoker alcohol intake: current substance use type: does not use ROS Const Const: Negative for fatigue, weakness, frequent falls, excessive sweating, weight gain or weight loss Eyes Eyes: Negative for transient loss of vision, blurry vision or change in vision ENT ENT: Negative for dizziness or balance problems Cardio Chest Pain: No Palpitations: Yes (occasional) feels like its: skipping Edema: None Muscle aches with walking: None Resp Respiratory: Negative for SOB with activity or SOB at rest GI GI: Negative vomiting or vomiting blood/hematemesis : Negative for hematuria Musc Musc: Negative for muscle aches/ myalgia, muscle weakness, joint pain or balance problems Skin Skin: Negative non-healing lesions or rash Neuro Neuro: Negative for dizziness, lightheadedness, orthostatic symptoms, frequent falls, weakness or blurry vision Javier Hematologic/Lymphatic: Negative for easy bleeding Endo Endo: Negative for fatigue or excessive sweating Psych Psych: Negative for anxiety or depression Allergy Allergy/Immunology: Negative for hives, Negative for rash Cardiology Exam Const Appearance: cooperative, healthy appearing, comfortable, no acute distress, well developed and well groomed Nutritional Appearance: overweight Orientation: alert, awake and oriented x3 Limitations: altered mental status Head Head: normal to inspection, normocephalic and atraumatic Ears: hearing grossly normal bilaterally Nose: external nose normal Mouth: oral mucosae normal Teeth and gingiva: dentition normal Eyes Eyelids: eyelids normal Conjunctivae: conjunctivae normal Pupils: PERRL EOM: EOM intact bilaterally Neck Neck: normal visual inspection and full ROM Carotids: normal carotid upstroke Chest Chest inspection: normal inspection of the chest, symmetric chest movement and normal respiratory effort Auscultation: Bilateral: Clear to Auscultation Cardio Palpation: normal PMI Rate: regular rate Rhythm: regular rhythm Heart sounds: S1 normal and S2 normal GI GI: normal to inspection, soft and bowel sounds present Neuro General: alert, awake, oriented x3, gait normal, moves all extremities and no focal sensory deficit Skin Skin: no rashes or lesions noted Extremities Pulses: Normal: Right Radial Pulse, Left Radial Pulse Lower Extremity Edema: None: Bilateral Psych Psychological: normal affect Assessment AND Plan 1. Palpitations R00.2 Plan At the present time he appears to be doing reasonably well. He will continue his current observational approach. He will notify the office of any concerns. 2. Premature supraventricular beats I49.1 Plan Again he has evidence of both PACs and PVCs. However he appears to be doing well at the moment with no obvious compromise. He will continue medical management and follow-up. 3. Essential hypertension I10 Plan He was asked to record his blood pressures at home. He will return a blood pressure recording card to the office for follow-up. Depending upon his findings he may or may not need to be considered for antihypertensive therapy. Plan Detail Additional Comments Otherwise he will be scheduled for an outpatient visit approximately 1 year unless needed sooner. Thank you for allowing me to participate in the care of your patient. Please don't hesitate to call if any issues arise. This note was generated using a voice recognition system and there may be incorrect words, spelling or punctuation that were not noted when reviewing the office note prior to saving. Follow Up 1 Year (PFM) Coding Level of Care Code Off vis,est,level 3 Diagnoses Palpitations R00.2 Premature supraventricular beats I49.1 Essential hypertension I10 Coding Level of Care Code Off vis,est,level 3 Diagnoses Palpitations R00.2 Premature supraventricular beats I49.1 Essential hypertension I10 Supplemental Info Supplemental Information Transthoracic echocardiogram: 04-07-15 Interpretation Summary The estimated ejection fraction is 65 %. Normal diastology for age. Unable to estimate RV systolic pressure. Normal transthoracic echocardiogram. Stress echocardiogram: 07-01-18 Interpretation Summary Negative (adequate) Stress Echocardiogram Holter monitor: 05-06-18: Findings compatible sinus rhythm with PACs and PVCs with no sustained narrow or wide complex runs Diagnostics Electrocardiogram 06/19/18 Echocardiogram 04/07/15 Stress Echocardiogram 07/01/18 Chest X-Ray 05/06/18 07/27/19 1632 <Electronically signed by Romain Leiva MD> Date __ Romain Leiva MD Cosigner Signature: Date __ (if applicable) CC: ARISTEO Ruiz Jrsantino Sara Horner Start: 06-22-2019 End: 06-22-2019 Elbow min 3 Views Comments: See Note; NOTES: [facility] [address] [place] [address] Elbow min 3 Views MR#: [id number] Acct: [id number] Name: EMERY PAREDES Rep #: [id number] : 1980 M 38 From: Peter Arango MD PCP: ARISTEO Riddle Status: REG CLI Study: Elbow min 3 Views Date of Exam: 06/22/19 Exam# [id number] Ordering Dr: Sara Horner DIRECTOR PAYMENTRenata STUDY: X-RAY - RIGHT ELBOW REASON FOR EXAM: Male, 38 years old. Pain TECHNIQUE: 3 view(s) of the elbow. COMPARISON: None. __ FINDINGS: The bones of the elbow are intact and located. Mineralization is normal. Soft tissues are intact. There is no joint effusion. __ RAD/Elbow min 3 Views IMPRESSION: Normal x-ray examination of the elbow. Electronically Signed: Peter Arango, at 19:46 EDT Tel , Service support , CC: ARISTEO Horner Staying Machine Operator: Signed Sara Horner Work Phone: Start: 07-01-2018 End: 07-01-2018 Stress Test Echo w/ Contrast Comments: See Note; NOTES: [facility] [address] [place] [address] Stress Test Echo w/o Contrast MR#: [id number] Acct: [id number] Name: EMERY PAREDES Rep #: [id number] : 1980 37 From: Romain Leiva MD Primary Care: Sara Horner NP Status: REG CLI Ordering Dr: Romain Leiva MD Sex: M C Reason For Study: CHEST PAIN Stress Results Protocol: Stress Echocardiogram Maximum Predicted HR: 181 bpm Target HR: 154 bpm% Maximum Pr edicted HR: 94 % DurationHeart Rate Stage (mm:ss) (bpm) BP BASELINE 70 120/80 PB PROTOCOL- STAGE 1 3:00 10 1 128/86 PB PROTOCOL- STAGE 2 3:00 12 3 140/84 PB PROTOCOL- STAGE 3 3:00 12 9 158/80 PB PROTOCOL- STAGE 4 3:00 14 1 166/84 PB PROTOCOL- STAGE 5 3:00 17 1 / RECOVERY 110 134/8 4 Stress Duration: 15:00 mm:ss Maximum Stress HR: 171 bpmME TS: 17 Baseline Echocardiogram Findings Stress Echo Wall motion Data Resting WMIntermediate WMStress WM Resting Wall Motion Wall Motion Stress All segments Normal. All segments Hyperkinetic. Ejection Fraction 55 %. Ejection Fraction 70 %. Stress Results Heart rate response: appropriate Blood pressure response: normal resting BP - appropriate response Arrhythmias: rare PAC / PVC during exercise and recovery Functional capacity: excellent Stopped secondary to: dyspnea. EKG Data Baseline ECG: NSR. Exercise ECG: no obvious ECG changes. Symptoms with Stress No c/o chest discomfort during exercise / recovery. Interpretation Summary Negative (adequate) Stress Echocardiogram Ordering Physician: Romain Leiva Referring Physician: Sara Horner NP Performed By: Evie Tripathi, MELODIE, RVT 07/01/18 1351 Date __ Romain Leiva MD CC: Sara Horner DIRECTOR PAYMENT; Romain Leiva MD Date Dictated: 07/01/18 1058 Date Transcribed: 07/01/18 1351 Staying Machine Operator: Signed Romain Leiva Work Phone: Start: 06-19-2018 End: 06-19-2018 Cardiology Visit Report Comments: See Note; NOTES: [facility] [address] [place] [address] OFFICE VISIT Date of Service: 06/19/18 MR#: [id number] Acct: [id number] Name: EMERY PAREDES Rep #: [id number] : 1980 Provider: Romain Leiva MD Age/Sex: 37/M Location: [facility] [place] Status: Signed HPI HPI Details: EMERY PAREDES, is a 37 M who presents to the office today for outpatient cardiovascular follow-up. He has previously been evaluated by Dr. Haynes on 08/01/2015 for concerns of underlying palpitations. He had undergone noninvasive evaluation at that time which appeared to include a transthoracic echocardiogram and a stress echocardiogram. The results are as noted below. Following his evaluation he was asked to minimize caffeine intake, alcohol intake, nicotine intake, and avoid other stimulants that may exacerbate underlying cardiac ectopy, dysrhythmias, blood pressure, etc. He states over time he has minimized his caffeine and alcohol intake. However he admits he is continued with nicotine intake. He notes he still has palpitations. He does note that the longer he goes without any type of stimulant they are less prominent. However he is also noted concerns of neck chest and shoulder [id number]. He notes that he can exert himself physically and feel good. However after physical activity is when he oftentimes notes his symptoms. He has not had to do anything to improve them. He has not noticed anything that makes them worse. He has denied orthopnea, PND, and peripheral pitting edema. There has been no near syncope or syncope. He had a follow-up ECG in the office today. He remains in sinus rhythm with poor R wave progression. He did have a 24-hour Holter monitor recently. He was in sinus rhythm. He had less than 1% of the time PACs and PVCs. He had no sustained narrow or wide complex runs. There were also no symptoms reported in his diary. Intake Vital Signs06/19/18 Height 5 ft 6 in 06/19/18 Weight: 195 lb 06/19/18 Body Mass Index (BMI) 31.4 06/19/18 Blood Pressure 124/86 H Intake Visit Reasons: Ref Chon Horner palpitations Allergies duloxetine [From Cymbalta] Allergy (Severe, Verified 06/19/18 16:09) foggy Penicillins Adverse Reaction (Severe, Verified 06/19/18 16:09) Diarrhea, Vomiting Medications NK 06/19/18 [History Confirmed 06/19/18] [facility] Medical History Premature supraventricular beats (Acute) Palpitations (Acute) Essential hypertension (Chronic) Carpal tunnel syndrome on right (Acute) Chewing tobacco use (Acute) Surgical History History of tonsillectomy (Resolved) Social History Smoking Status: Never smoker alcohol intake: current substance use type: does not use ROS Const Const: Positive for fatigue (continues); negative for weakness, weight gain, weight loss, frequent falls or excessive sweating Eyes Eyes: Negative for change in vision, blurry vision or transient loss of vision ENT ENT: Positive for dizziness (bending, kneeling down and standing back up); negative for balance problems Cardio Chest Pain: Yes Character: other ( needles , tightness) Onset: at rest, exercise Location: left chest Duration: minutes (2-5) Relieving: rest Palpitations: Yes (daily) feels like its: skipping Edema: None Muscle aches with walking: None Additional Details: Patient reports that when he experiences palpitations he can become SOB and have a heaviness in his chest. On occasion with palpitations he reports feeling a cramping in left forearm. Resp Respiratory: Positive for SOB with activity (climbing starirs, going uphill, w/palpitations); negative for SOB at rest GI GI: Negative vomiting or vomiting blood/hematemesis : Negative for hematuria Musc Musc: Negative for balance problems, muscle aches/ myalgia, muscle weakness or joint pain Skin Skin: Negative non-healing lesions or rash Neuro Neuro: Positive for dizziness (bending, kneeling down and standing back up); negative for weakness, blurry vision, lightheadedness, frequent falls or orthostatic symptoms Javier Hematologic/Lymphatic: Negative for easy bleeding Endo Endo: Positive for fatigue (continues); negative for excessive sweating Psych Psych: Negative for anxiety or depression Allergy Allergy/Immunology: Negative for hives, Negative for rash Cardiology Exam Const Appearance: cooperative, healthy appearing, comfortable, no acute distress, well developed and well groomed Nutritional Appearance: overweight Orientation: alert, awake and oriented x3 Limitations: altered mental status Head Head: normal to inspection, normocephalic and atraumatic Ears: hearing grossly normal bilaterally Nose: external nose normal Mouth: oral mucosae normal Teeth and gingiva: dentition normal Eyes Eyelids: eyelids normal Conjunctivae: conjunctivae normal Pupils: PERRL EOM: EOM intact bilaterally Neck Neck: normal visual inspection and full ROM Carotids: normal carotid upstroke Chest Chest inspection: normal inspection of the chest and symmetric chest movement Auscultation: Bilateral: Clear to Auscultation Cardio Palpation: normal PMI Rate: regular rate Rhythm: regular rhythm Heart sounds: S1 normal and S2 normal GI GI: normal to inspection, soft and bowel sounds present Neuro General: alert, awake, oriented x3, gait normal, moves all extremities and no focal sensory deficit Skin Skin: no rashes or lesions noted Extremities Pulses: Normal: Right Radial Pulse, Left Radial Pulse Lower Extremity Edema: None: Bilateral Psych Psychological: normal affect Supplemental Info He had a transthoracic echocardiogram on 04/07/2015 Interpretation Summary The estimated ejection fraction is 65 %. Normal diastology for age. Unable to estimate RV systolic pressure. Normal transthoracic echocardiogram. He had a stress echocardiogram on 04/20/2015 Interpretation Summary Normal adequate treadmill echocardiogram. Negative for ischemia by ECG and ECHO criteria. No anginal symptoms noted. Rare PVC noted. Normal BP response to exercise. Excellent exercise capacity for age. Test terminated due to fatigue. Final LVEF=70%. Assessment AND Plan 1. Palpitations R00.2 Plan At the present time he does experience palpitations. This may be related to his recent Holter monitor findings suggesting rare PACs and PVCs. He was encouraged to continue to avoid caffeine, alcohol, and nicotine as well as any pxjt-jho-bavfoht decongestants. It was not felt he need to be placed on immediate medical management. Orders Orders: 2. Premature supraventricular beats I49.1 Plan Again he has been found to have PACs and PVCs. These appear to be relatively rare occurring less than 1% of the time during his 24-hour Holter monitor. He had no symptoms that he reported during his Holter monitor. Thus at the present time it was not felt he needed to initiate medical management. Orders Orders: 3. PVC (premature ventricular contraction) I49.3 Plan Again, as noted above, it was not felt he needed to initiate medical management. He will need to be followed over time. 4. Chest pain R07.9 Plan He does have chest discomfort. It appears somewhat atypical. It appears less likely to be underlying cardiovascular related especially with CAD based upon his previous exercise tolerance test being negative at a good functional capacity/high workload. However he is very concerned about the ongoing symptoms in light of his other findings. Thus with no other explanation thus far, knowing it has been 3 years since his last evaluation, he will undergo repeat evaluation with an exercise tolerance test/imaging study. If this is unremarkable then he may need further noncardiac evaluation of his discomforts Orders Orders: 5. Essential hypertension I10 Plan His diastolic blood pressure is borderline elevated this day. This will need to be monitored going forward by his primary care physicians and other physicians. If his systolic or diastolic blood pressures trend upward then he will need to be considered for further evaluation as well as medical management. Plan Detail Additional Comments Thank you for allowing me to participate in the care of your patient. Please don't hesitate to call if any issues arise. This note was generated using a voice recognition system and there may be incorrect words, spelling or punctuation that were not noted when reviewing the office note prior to saving. Follow Up 1 Year (PFM) Coding Level of Care Code Off vis,est,level 4 Diagnoses Palpitations R00.2 Premature supraventricular beats I49.1 PVC (premature ventricular contraction) I49.3 Chest pain R07.9 Essential hypertension I10 Coding Level of Care Code Off vis,est,level 4 Diagnoses Palpitations R00.2 Premature supraventricular beats I49.1 PVC (premature ventricular contraction) I49.3 Chest pain R07.9 Essential hypertension I10 06/19/18 7270 <Electronically signed by Romain Leiva MD> Date __ Romain Leiva MD Cosigner Signature: Date __ (if applicable) CC: Sara Horner Start: 06-19-2018 End: 06-19-2018 12 Lead EKG performed by [facility] Comments: See Note; NOTES: [facility] [address] [place] [address] 12 Lead EKG performed by [facility] 06/19/180 MR#: [id number] Acct: [id number] Name: EMERY PAREDES Rep #: [id number] : 1980 37 From: Romain Leiva MD Attending Dr: Romain Leiva MD Status: DEP AMB Ordering Dr: Romain Leiva MD Date: 06/19/18 [place] [facility] [place] Sex: M C Admitted: BMS/12 Lead EKG performed by [facility] ECG Report Interpretation Sinus Rhythm Poor R wave progressionElectronically signed on 06/19/2018 at 18:31 by Romain Leiva Software Version [id number] 06/19/18 1836 Date __ Romain Leiva MD CC: Sara Horner NP Date Dictated: 06/19/181619 Date Transcribed: 06/19/181619 Staying Machine Operator: PM Signed Romain Leiva Work Phone: Start: 05-06-2018 End: 05-06-2018 Chest PA and Lateral Comments: See Note; NOTES: [facility] Imaging Services [address] [place] [address] Chest PA and Lateral MR#: [id number] Acct: [id number] Name: EMERY PAREDES Rep #: [id number] : 1980 M 37 From: Caden Stewart MD PCP: Sara Horner NP Status: REG CLI Study: Chest PA and Lateral Date of Exam: 05/06/18 Exam# [id number] Ordering Dr: Sara Horner STUDY: X-RAY CHEST REASON FOR EXAM: Male, 37 years old. Shortness of breath TECHNIQUE: Frontal and lateral views of the chest COMPARISON: None. __ FINDINGS: The lungs are clear. There are no pleural effusions. There is no pneumothorax. The heart is normal in size. The visualized osseous structures are within normal limits. __ RAD/Chest PA and Lateral IMPRESSION: No acute thoracic pathology. Electronically Signed: Caden Stewart, at 18:56 EDT Tel , Service support , CC: Sara Horner DIRECTOR PAYMENT Staying Machine Operator: Signed Sara Horner Work Phone: Start: 08-14-2017 End: 08-14-2017 NCS and/or EMG Patient Comments: See Note; NOTES: [facility] Pulmonary Services/Neurology [facility] [place] [address] MR#: [id number] Acct: [id number] Name: EMERY PAREDES Rep #: [id number] : 1980 36 From: Joshua Donis MD Referring Dr: Sara Horner Status: REG CLI Ordering Dr: Date: Location: [facility] Sex: M C NCS and/or EMG Patient Report Ordering Doctor: Sara Horner DATE OF SERVICE: 08/14/17 This is a right upper extremity nerve conduction study and concentric needle electromyography performed on this 36-year-old male with abnormal sensations in the first 4 digits of his right hand for approximately 4 months. He is healthy otherwise. Denies neck pain. Right upper extremity needle electromyography was performed utilizing the concentric needle. Muscles evaluated included the first dorsal interosseous, abductor pollicis brevis, brachioradialis, biceps, triceps, and deltoid muscles. All muscles demonstrated normal insertional activity with absence of pathologic spontaneous activity. Motor unit potential recruitment pattern and amplitude was normal in all muscles tested. Right upper extremity nerve conduction study was performed. The median motor distal latency is prolonged with preserved amplitude and conduction velocity. The median sensory responses normal. The ulnar motor and sensory and radial sensory responses are normal. The right median F wave is mildly prolonged compared to the ulnar F wave. 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 EMG testing is normal consistent with mild to moderate median neuropathy. There is no evidence of radiculopathy. 08/14/17 1029 <Electronically signed by Joshua Donis MD> Date __ Joshua Donis MD CC: Sara Horner; Joshua Donis MD Date Dictated: 08/14/17 1015 Date Transcribed: 08/14/17 1015 Staying Machine Operator: NF Signed Sara Horner Start: 06-25-2017 End: 06-26-2017 Shoulder min 2 Views Comments: See Note; NOTES: [facility] Imaging Services [address] [place] [address] Shoulder min 2 Views MR#: [id number] Acct: [id number] Name: EMERY PAREDES Rep #: [id number] : 1980 M 36 From: Iftikhar Mendoza MD PCP: Sara Horner Status: REG CLI Study: Shoulder min 2 Views Date of Exam: 06/25/17 Exam# [id number] Ordering Dr: Sara Horner STUDY: X-RAY - RIGHT SHOULDER REASON FOR EXAM: Male, 36 years old. Shoulder pain. TECHNIQUE: 4 view(s) of the shoulder. COMPARISON: None. __ FINDINGS: Normal glenohumeral articulation. Normal acromioclavicular joint. Normal acromion. Normal humeral head and visualized proximal humerus. The soft tissue structures are unremarkable. Normal visualized pulmonary apex. __ RAD/Shoulder min 2 Views IMPRESSION: Normal x-ray examination of the shoulder. Electronically Signed: Iftikhar Mendoza MD at 15:02 EDT Tel [phone], Service support , CC: Sara Horner Staying Machine Operator: Signed Sara An Siri Work Phone: Start: 04-20-2015 End: 04-20-2015 Stress Test Echo w/o Contrast Comments: See Note; NOTES: [facility] Cardiovascular Services [address] [place] [address] STRESS TEST REPORT 04/20/15 1243 MR#: [id number] Acct: [id number] Name: EMERY PAREDES Rep #: [id number] : 1980 34 From: Lokesh Haynes MD Primary Care: Sara Horner Status: [facility] Ordering Dr: Lokesh Haynes MD Service Date: 04/20/15 Order Date: 04/20/15 Sex: M C Stress Results Maximum Predicted HR: 184 bpm Target HR: 156 bpm % Maximum Predicted HR: 97 % Stage DurationHeart Rate BP (mm:ss) (bpm) BASELINE 77 112/74 PB STAGE 1 3:00 111 138/68 PB STAGE 2 3:00 123 150/60 PB STAGE 3 3:00 133 164/70 PB STAGE 4 3:00 144 178/68 PB STAGE 5 3:00 179 190/70 RECOVERY 120 120/70 Stress Duration: 15:00 mm:ss Maximum Stress HR: 179 bpm Baseline Echocardiogram Findings The estimated ejection fraction is 65 %. Normal systolic function. Normal left atrium. Normal right atrium. The mitral valve is structurally normal. No prolapse or stenosis seen. Normal tricuspid valve. Stress Echo Wall motion Data Resting WM Intermediate WM Stress WM Resting Wall Motion Wall Motion Stress No regional wall motion No regional wall motion abnormalities noted. abnormalities noted. EKG Data The baseline ECG demonstrates normal sinus rhythm with at rate of _ beats per minute. The patient exercised according to the regular Pb protocol for a total duration of 15:01. The maximum heart rate attained was 181 beats per minute. This was 98% of maximum predicted heart rate. The patient exercised into stage 6 of the Pb protocol. At rest, there were no ST or T wave changes noted to suggest ischemia. No clinical angina was noted. Interpretation Summary Normal adequate treadmill echocardiogram. Negative for ischemia by ECG and ECHO criteria. No anginal symptoms noted. Rare PVC noted. Normal BP response to exercise. Excellent exercise capacity for age. Test terminated due to fatigue. Final LVEF=70%. Ordering Physician: Lokesh Haynes Referring Physician: Lokesh Haynes MD Performed By: Evie Tripathi, MELODIE, RVT 04/20/15 1512 Date __ Lokesh Haynes MD CC: Sara Horner; Lokesh Haynes MD Date Dictated: 04/20/15 1243 Date Transcribed: 04/20/151511 Staying Machine Operator: Signed Sara Horner Start: 04-08-2015 End: 04-08-2015 Echocardiogram Complete Comments: See Note; NOTES: [facility] Cardiovascular Services [address] [place] [address] Echo Complete 04/07/15 1324 MR#: [id number] Acct: [id number] Name: EMERY PAREDES Rep #: [id number] : 1980 34 From: Lokesh Haynes MD Attending Dr: Lokesh Haynes MD Status: REG CLI Ordering Dr: Lokesh Haynes MD Date: 04/07/15 [facility] Sex[facility] M C Admitted: Procedure This was a 2D Doppler, Color Flow transthoracic echocardiogram. Exam performed in department. Left Ventricle Normal size and thickness. The estimated ejection fraction is 65 %. Septal motion consistent with IVCD. Normal diastology for age. No regional wall motion abnormalities noted. Right Ventricle Normal size and thickness. Normal systolic function. Atria Normal left atrium. Normal right atrium. Normal atrial septum. Mitral Valve The mitral valve is structurally normal. No prolapse or stenosis seen. Tricuspid Valve Normal tricuspid valve. Trivial tricuspid valve insufficiency. Unable to estimate RV systolic pressure. Aortic Valve Trisinus/trileaflet aortic valve. Normal aortic valve. Pulmonic Valve Normal pulmonic valve. Great Vessels Normal aortic root. Normal arch. Normal inferior vena cava. Inferior vena cava collapse with sniff. Pericardium/Pleural No pericardial effusion. MMode/2D Measurements AND Calculations LVIDd: 4.6 cm IVSd: 1.1 cm Ao root diam: 2.6 cm LAV(MOD-bp): 38.6 ml LVIDs: 2.6 cm LVPWd: 1.2 cm Ao root area: 5.2 cm2 LAV(MOD-bp) Indexed: 19.8 ml /m2 RVDd: 4.0 cm FS: 42.6 % LA dimension: 3.8 cm LAV(MOD-sp2): 38.6 ml LAV(MOD-sp4): 37.9 ml LA A4 area: 15.8 cm2 RA A4 area: 14.7 cm2 Doppler Measurements AND Calculations MV E max colby: Lat Peak E' Colby: Med Peak E' Colby: Ao V2 max: 88.0 cm/sec 19.5 cm/sec 16.5 cm/sec 137.0 cm/sec MV A max colby: Ao max P.5 mmHg 53.6 cm/sec MV E/A: 1.6 LV V1 max: 134.0 cm/sec PA V2 max: 141.4 cm/sec E/E' lat: 4.5 E/E' med: 5.3 LV V1 max P.3 mmHg PA max P.0 mmHg Interpretation Summary The estimated ejection fraction is 65 %. Normal diastology for age. Unable to estimate RV systolic pressure. Normal transthoracic echocardiogram. Ordering Physician: Lokesh Haynes Performed By: JACOB De Leon 04/07/151654 Date __ Lokesh Haynes MD CC: Sara Horner; Lokesh Haynes MD Date Dictated: 04/07/15 1324 Date Transcribed: 04/07/151654 Staying Machine Operator: Signed Sara Horner Ophthalmic examinati on and evaluation Kervin Ma Plan of Treatment Date Care Activity Detail Author Start: 01-28-2023 Assay of erythropoietin ERYTHROPOIETIN (86921) : [facility] Work Phone: Start: 01-28-2023 CBC, PLATELETS & MANUAL DIFF (39300) : [facility] around CBC, PLATELETS & MANUAL DIFF (14787) : [facility] Work Phone: Start: 01-21-2023 25 hydroxy includes fractions if performed CALCIFEDIOL (24767) [facility] Work Phone: Start: 01-21-2023 Blood count complete auto&auto difrntl wbc CBC, PLATELETS & AUT DIFF (81974) [facility]; [facility] Work Phone: Start: 01-21-2023 Comprehensive metabolic panel METABOLIC PANEL, COMPREHENSIVE (18698) [facility] Work Phone: Start: 01-21-2023 Lipid panel LIPID PANEL (19749) [facility] Work Phone: Start: 01-21-2023 Procedure Education Eprescribed prescriptions (G8553) [facility]; [facility] Work Phone: Start: 01-21-2023 Provider Instructions for Treatment Follow up if no improvement or if symptoms worsen [facility] Work Phone: Start: 06-22-2019 Procedure Education Eprescribed prescriptions (G8553) [facility] Work Phone: Start: 06-22-2019 Provider Instructions for Treatment Follow up if no improvement or if symptoms worsen [facility] Work Phone: Start: 02-17-2019 Hepatic function panel HEPATIC FUNCTION PANEL (29653) [facility] Work Phone: Payers Date Payer Category Payer Unknown [id number] 2018 Unknown [id number] 2015 Unknown [id number] 1980 Unknown [id number] Unknown Social History Date Type Detail Facility Alcohol Use: Drinks beer. [facility] Work Phone: Instructions Note Date & Type Note Facility [facility] Work Phone: Instructions Note Date & Type Note Facility [facility] Work Phone: Instructions Note Date & Type Note Facility [facility] Work Phone: Instructions Note Date & Type Note Facility [facility] Work Phone: Instructions Note Date & Type Note Facility [facility] Work Phone: Family History Unknown Family Member Name Dates Details Father Comments:- MVA Status:Active Maternal Grandmother Comments:Br Ca Status:Active Paternal Grandmother Comments:Br Ca Status:Active Unknown Family Member Name Dates Details Father Comments:- MVA Status:Active Maternal Grandmother Comments:Br Ca Status:Active Paternal Grandmother Comments:Br Ca Status:Active Unknown Family Member Name Dates Details Father Comments:- MVA Status:Active Maternal Grandmother Comments:Br Ca Status:Active Paternal Grandmother Comments:Br Ca Status:Active Unknown Family Member Name Dates Details Father Comments:- MVA Status:Active Maternal Grandmother Comments:Br Ca Status:Active Paternal Grandmother Comments:Br Ca Status:Active Unknown Family Member Name Dates Details Father Comments:- MVA Status:Active Maternal Grandmother Comments:Br Ca Status:Active Paternal Grandmother Comments:Br Ca Status:Active Unknown Family Member Name Dates Details Father Comments:- MVA Status:Active Maternal Grandmother Comments:Br Ca Status:Active Paternal Grandmother Comments:Br Ca Status:Active Unknown Family Member Name Dates Details Father Comments:- MVA Status:Active Maternal Grandmother Comments:Br Ca Status:Active Paternal Grandmother Comments:Br Ca Status:Active Unknown Family Member Name Dates Details Father Comments:- MVA Status:Active Maternal Grandmother Comments:Br Ca Status:Active Paternal Grandmother Comments:Br Ca Status:Active Unknown Family Member Name Dates Details Father Comments:- MVA Status:Active Maternal Grandmother Comments:Br Ca Status:Active Paternal Grandmother Comments:Br Ca Status:Active Unknown Family Member Name Dates Details Father Comments:- MVA Status:Active Maternal Grandmother Comments:Br Ca Status:Active Paternal Grandmother Comments:Br Ca Status:Active Instructions Name Dates Details How to access health informa tion online Indication:Nonsmoker Start:17-Feb-2019 Instruction Type:Patient Education How to access health informa tion online - Detail Indication:Nonsmoker Start:17-Feb-2019 Instruction Type:Patient Education Patient Instructions Indication:Nonsmoker Start:17-Feb-2019 Instruction Type:Provider Instructions for Treatment How to access health informa tion online Indication:Borderline hypertension Start:19-Aug-2018 Instruction Type:Patient Education How to access health informa tion online - Detail Indication:Borderline hypertension Start:19-Aug-2018 Instruction Type:Patient Education Patient Instructions Indication:Borderline hypertension Start:19-Aug-2018 Instruction Type:Provider Instructions for Treatment How to access health informa tion online Indication:Nonsmoker Start:20-May-2018 Instruction Type:Patient Education How to access health informa tion online - Detail Indication:Nonsmoker Start:20-May-2018 Instruction Type:Patient Education Patient Instructions Indication:Nonsmoker Start:20-May-2018 Instruction Type:Provider Instructions for Treatment How to access health informa tion online Indication:Nonsmoker Start:06-May-2018 Instruction Type:Patient Education How to access health informa tion online - Detail Indication:Nonsmoker Start:06-May-2018 Instruction Type:Patient Education Patient Instructions Indication:Nonsmoker Start:06-May-2018 Instruction Type:Provider Instructions for Treatment Patient Instructions Indication:Carpal tunnel syndrome on right Start:23-Aug-2017 Instruction Type:Provider Instructions for Treatment How to access health informa tion online Indication:Nonsmoker Start:23-Aug-2017 Instruction Type:Patient Education How to access health informa tion online - Detail Indication:Nonsmoker Start:23-Aug-2017 Instruction Type:Patient Education Patient Instructions Indication:Nonsmoker Start:23-Aug-2017 Instruction Type:Provider Instructions for Treatment How to access health informa tion online Indication:Hypertension Start:25-Jun-2017 Instruction Type:Patient Education How to access health informa tion online - Detail Indication:Hypertension Start:25-Jun-2017 Instruction Type:Patient Education Patient Instructions Indication:Hypertension Start:25-Jun-2017 Instruction Type:Provider Instructions for Treatment How to access health informa tion online Indication:Anxiety Start:28-Mar-2016 Instruction Type:Patient Education How to access health informa tion online - Detail Indication:Anxiety Start:28-Mar-2016 Instruction Type:Patient Education Patient Instructions Indication:Anxiety Start:28-Mar-2016 Instruction Type:Provider Instructions for Treatment How to access health informa tion online Indication:Anxiety Start:06-Feb-2016 Instruction Type:Patient Education How to access health informa tion online - Detail Indication:Anxiety Start:06-Feb-2016 Instruction Type:Patient Education Patient Instructions Indication:Anxiety Start:06-Feb-2016 Instruction Type:Provider Instructions for Treatment Patient Instructions Indication:Low vitamin D level Start:04-Apr-2015 Instruction Type:Provider Instructions for Treatment Name Dates Details How to access health informa tion online Indication:Nonsmoker Start:17-Feb-2019 Instruction Type:Patient Education How to access health informa tion online - Detail Indication:Nonsmoker Start:17-Feb-2019 Instruction Type:Patient Education Patient Instructions Indication:BMI 33.0-33.9,adult Start:17-Feb-2019 Instruction Type:Provider Instructions for Treatment How to access health informa tion online Indication:Borderline hypertension Start:19-Aug-2018 Instruction Type:Patient Education How to access health informa tion online - Detail Indication:Borderline hypertension Start:19-Aug-2018 Instruction Type:Patient Education Patient Instructions Indication:Borderline hypertension Start:19-Aug-2018 Instruction Type:Provider Instructions for Treatment How to access health informa tion online Indication:Nonsmoker Start:20-May-2018 Instruction Type:Patient Education How to access health informa tion online - Detail Indication:Nonsmoker Start:20-May-2018 Instruction Type:Patient Education Patient Instructions Indication:Nonsmoker Start:20-May-2018 Instruction Type:Provider Instructions for Treatment How to access health informa tion online Indication:Nonsmoker Start:06-May-2018 Instruction Type:Patient Education How to access health informa tion online - Detail Indication:Nonsmoker Start:06-May-2018 Instruction Type:Patient Education Patient Instructions Indication:Nonsmoker Start:06-May-2018 Instruction Type:Provider Instructions for Treatment Patient Instructions Indication:Carpal tunnel syndrome on right Start:23-Aug-2017 Instruction Type:Provider Instructions for Treatment How to access health informa tion online Indication:Nonsmoker Start:23-Aug-2017 Instruction Type:Patient Education How to access health informa tion online - Detail Indication:Nonsmoker Start:23-Aug-2017 Instruction Type:Patient Education Patient Instructions Indication:Nonsmoker Start:23-Aug-2017 Instruction Type:Provider Instructions for Treatment How to access health informa tion online Indication:Hypertension Start:25-Jun-2017 Instruction Type:Patient Education How to access health informa tion online - Detail Indication:Hypertension Start:25-Jun-2017 Instruction Type:Patient Education Patient Instructions Indication:Hypertension Start:25-Jun-2017 Instruction Type:Provider Instructions for Treatment How to access health informa tion online Indication:Anxiety Start:28-Mar-2016 Instruction Type:Patient Education How to access health informa tion online - Detail Indication:Anxiety Start:28-Mar-2016 Instruction Type:Patient Education Patient Instructions Indication:Anxiety Start:28-Mar-2016 Instruction Type:Provider Instructions for Treatment How to access health informa tion online Indication:Anxiety Start:06-Feb-2016 Instruction Type:Patient Education How to access health informa tion online - Detail Indication:Anxiety Start:06-Feb-2016 Instruction Type:Patient Education Patient Instructions Indication:Anxiety Start:06-Feb-2016 Instruction Type:Provider Instructions for Treatment Patient Instructions Indication:Low vitamin D level Start:04-Apr-2015 Instruction Type:Provider Instructions for Treatment Name Dates Details How to access health informa tion online Indication:Nonsmoker Start:22-Jun-2019 Instruction Type:Patient Education How to access health informa tion online - Detail Indication:Nonsmoker Start:22-Jun-2019 Instruction Type:Patient Education Patient Instructions Indication:Nonsmoker Start:22-Jun-2019 Instruction Type:Provider Instructions for Treatment How to access health informa tion online Indication:Nonsmoker Start:17-Feb-2019 Instruction Type:Patient Education How to access health informa tion online - Detail Indication:Nonsmoker Start:17-Feb-2019 Instruction Type:Patient Education Patient Instructions Indication:BMI 33.0-33.9,adult Start:17-Feb-2019 Instruction Type:Provider Instructions for Treatment How to access health informa tion online Indication:Borderline hypertension Start:19-Aug-2018 Instruction Type:Patient Education How to access health informa tion online - Detail Indication:Borderline hypertension Start:19-Aug-2018 Instruction Type:Patient Education Patient Instructions Indication:Borderline hypertension Start:19-Aug-2018 Instruction Type:Provider Instructions for Treatment How to access health informa tion online Indication:Nonsmoker Start:20-May-2018 Instruction Type:Patient Education How to access health informa tion online - Detail Indication:Nonsmoker Start:20-May-2018 Instruction Type:Patient Education Patient Instructions Indication:Nonsmoker Start:20-May-2018 Instruction Type:Provider Instructions for Treatment How to access health informa tion online Indication:Nonsmoker Start:06-May-2018 Instruction Type:Patient Education How to access health informa tion online - Detail Indication:Nonsmoker Start:06-May-2018 Instruction Type:Patient Education Patient Instructions Indication:Nonsmoker Start:06-May-2018 Instruction Type:Provider Instructions for Treatment Patient Instructions Indication:Carpal tunnel syndrome on right Start:23-Aug-2017 Instruction Type:Provider Instructions for Treatment How to access health informa tion online Indication:Nonsmoker Start:23-Aug-2017 Instruction Type:Patient Education How to access health informa tion online - Detail Indication:Nonsmoker Start:23-Aug-2017 Instruction Type:Patient Education Patient Instructions Indication:Nonsmoker Start:23-Aug-2017 Instruction Type:Provider Instructions for Treatment How to access health informa tion online Indication:Hypertension Start:25-Jun-2017 Instruction Type:Patient Education How to access health informa tion online - Detail Indication:Hypertension Start:25-Jun-2017 Instruction Type:Patient Education Patient Instructions Indication:Hypertension Start:25-Jun-2017 Instruction Type:Provider Instructions for Treatment How to access health informa tion online Indication:Anxiety Start:28-Mar-2016 Instruction Type:Patient Education How to access health informa tion online - Detail Indication:Anxiety Start:28-Mar-2016 Instruction Type:Patient Education Patient Instructions Indication:Anxiety Start:28-Mar-2016 Instruction Type:Provider Instructions for Treatment How to access health informa tion online Indication:Anxiety Start:06-Feb-2016 Instruction Type:Patient Education How to access health informa tion online - Detail Indication:Anxiety Start:06-Feb-2016 Instruction Type:Patient Education Patient Instructions Indication:Anxiety Start:06-Feb-2016 Instruction Type:Provider Instructions for Treatment Patient Instructions Indication:Low vitamin D level Start:04-Apr-2015 Instruction Type:Provider Instructions for Treatment Name Dates Details How to access health informa tion online Indication:Nonsmoker Start:22-Jun-2019 Instruction Type:Patient Education How to access health informa tion online - Detail Indication:Nonsmoker Start:22-Jun-2019 Instruction Type:Patient Education Patient Instructions Indication:Nonsmoker Start:22-Jun-2019 Instruction Type:Provider Instructions for Treatment How to access health informa tion online Indication:Nonsmoker Start:17-Feb-2019 Instruction Type:Patient Education How to access health informa tion online - Detail Indication:Nonsmoker Start:17-Feb-2019 Instruction Type:Patient Education Patient Instructions Indication:BMI 33.0-33.9,adult Start:17-Feb-2019 Instruction Type:Provider Instructions for Treatment How to access health informa tion online Indication:Borderline hypertension Start:19-Aug-2018 Instruction Type:Patient Education How to access health informa tion online - Detail Indication:Borderline hypertension Start:19-Aug-2018 Instruction Type:Patient Education Patient Instructions Indication:Borderline hypertension Start:19-Aug-2018 Instruction Type:Provider Instructions for Treatment How to access health informa tion online Indication:Nonsmoker Start:20-May-2018 Instruction Type:Patient Education How to access health informa tion online - Detail Indication:Nonsmoker Start:20-May-2018 Instruction Type:Patient Education Patient Instructions Indication:Nonsmoker Start:20-May-2018 Instruction Type:Provider Instructions for Treatment How to access health informa tion online Indication:Nonsmoker Start:06-May-2018 Instruction Type:Patient Education How to access health informa tion online - Detail Indication:Nonsmoker Start:06-May-2018 Instruction Type:Patient Education Patient Instructions Indication:Nonsmoker Start:06-May-2018 Instruction Type:Provider Instructions for Treatment Patient Instructions Indication:Carpal tunnel syndrome on right Start:23-Aug-2017 Instruction Type:Provider Instructions for Treatment How to access health informa tion online Indication:Nonsmoker Start:23-Aug-2017 Instruction Type:Patient Education How to access health informa tion online - Detail Indication:Nonsmoker Start:23-Aug-2017 Instruction Type:Patient Education Patient Instructions Indication:Nonsmoker Start:23-Aug-2017 Instruction Type:Provider Instructions for Treatment How to access health informa tion online Indication:Hypertension Start:25-Jun-2017 Instruction Type:Patient Education How to access health informa tion online - Detail Indication:Hypertension Start:25-Jun-2017 Instruction Type:Patient Education Patient Instructions Indication:Hypertension Start:25-Jun-2017 Instruction Type:Provider Instructions for Treatment How to access health informa tion online Indication:Anxiety Start:28-Mar-2016 Instruction Type:Patient Education How to access health informa tion online - Detail Indication:Anxiety Start:28-Mar-2016 Instruction Type:Patient Education Patient Instructions Indication:Anxiety Start:28-Mar-2016 Instruction Type:Provider Instructions for Treatment How to access health informa tion online Indication:Anxiety Start:06-Feb-2016 Instruction Type:Patient Education How to access health informa tion online - Detail Indication:Anxiety Start:06-Feb-2016 Instruction Type:Patient Education Patient Instructions Indication:Anxiety Start:06-Feb-2016 Instruction Type:Provider Instructions for Treatment Patient Instructions Indication:Low vitamin D level Start:04-Apr-2015 Instruction Type:Provider Instructions for Treatment Name Dates Details How to access health informa tion online Indication:Nonsmoker Start:22-Jun-2019 Instruction Type:Patient Education How to access health informa tion online - Detail Indication:Nonsmoker Start:22-Jun-2019 Instruction Type:Patient Education Patient Instructions Indication:Nonsmoker Start:22-Jun-2019 Instruction Type:Provider Instructions for Treatment How to access health informa tion online Indication:Nonsmoker Start:17-Feb-2019 Instruction Type:Patient Education How to access health informa tion online - Detail Indication:Nonsmoker Start:17-Feb-2019 Instruction Type:Patient Education Patient Instructions Indication:BMI 33.0-33.9,adult Start:17-Feb-2019 Instruction Type:Provider Instructions for Treatment How to access health informa tion online Indication:Borderline hypertension Start:19-Aug-2018 Instruction Type:Patient Education How to access health informa tion online - Detail Indication:Borderline hypertension Start:19-Aug-2018 Instruction Type:Patient Education Patient Instructions Indication:Borderline hypertension Start:19-Aug-2018 Instruction Type:Provider Instructions for Treatment How to access health informa tion online Indication:Nonsmoker Start:20-May-2018 Instruction Type:Patient Education How to access health informa tion online - Detail Indication:Nonsmoker Start:20-May-2018 Instruction Type:Patient Education Patient Instructions Indication:Nonsmoker Start:20-May-2018 Instruction Type:Provider Instructions for Treatment How to access health informa tion online Indication:Nonsmoker Start:06-May-2018 Instruction Type:Patient Education How to access health informa tion online - Detail Indication:Nonsmoker Start:06-May-2018 Instruction Type:Patient Education Patient Instructions Indication:Nonsmoker Start:06-May-2018 Instruction Type:Provider Instructions for Treatment Patient Instructions Indication:Carpal tunnel syndrome on right Start:23-Aug-2017 Instruction Type:Provider Instructions for Treatment How to access health informa tion online Indication:Nonsmoker Start:23-Aug-2017 Instruction Type:Patient Education How to access health informa tion online - Detail Indication:Nonsmoker Start:23-Aug-2017 Instruction Type:Patient Education Patient Instructions Indication:Nonsmoker Start:23-Aug-2017 Instruction Type:Provider Instructions for Treatment How to access health informa tion online Indication:Hypertension Start:25-Jun-2017 Instruction Type:Patient Education How to access health informa tion online - Detail Indication:Hypertension Start:25-Jun-2017 Instruction Type:Patient Education Patient Instructions Indication:Hypertension Start:25-Jun-2017 Instruction Type:Provider Instructions for Treatment How to access health informa tion online Indication:Anxiety Start:28-Mar-2016 Instruction Type:Patient Education How to access health informa tion online - Detail Indication:Anxiety Start:28-Mar-2016 Instruction Type:Patient Education Patient Instructions Indication:Anxiety Start:28-Mar-2016 Instruction Type:Provider Instructions for Treatment How to access health informa tion online Indication:Anxiety Start:06-Feb-2016 Instruction Type:Patient Education How to access health informa tion online - Detail Indication:Anxiety Start:06-Feb-2016 Instruction Type:Patient Education Patient Instructions Indication:Anxiety Start:06-Feb-2016 Instruction Type:Provider Instructions for Treatment Patient Instructions Indication:Low vitamin D level Start:04-Apr-2015 Instruction Type:Provider Instructions for Treatment Summary Purpose Advance Directives No Advanced Directives Records Found Additional Source Comments (unrecognized sect ion and content) No Status Records Found INFORMATION SOURCE (unrecogn ized section and content) FOR RECORDS PERTAINING TO PATIENTS WHO ARE OR HAVE BEEN ENROLLED IN A CHEMICAL DEPENDENCY/SUBSTANCEABUSE PROGRAM, SOME INFORMATION MAY BE OMITTED. This clinical summary was aggregated from multiple sources. Caution should be exercised in using it in the provision of clinical care. This summary normalizes information from multiple sources, and as a consequence, information in this document may materially change the coding, format and clinical context of patient data. In addition, data may be omitted in some cases. CLINICAL DECISIONS SHOULD BE BASED ON THE PRIMARY CLINICAL RECORDS. [employer] provides no warranty or guarantee of the accuracy or completeness of information in this document.
== END | disposition home or self-care (01) ==
PROVIDERS: PCP Nurse Practitioner Family; Referring Provider Nurse Practitioner Family; Visit Provider Nurse Practitioner Family
DX: R00.2 Palpitations (principal); I49.1 Atrial premature depolarization
CPT/HCPCS: 93225; 93226

== ENCOUNTER → 2023-12-03 | Outpatient (CLI) | payer BC, SELFPAY ==
[2023-12-03 15:03] LABS: Absolute Lymphocyte Count 1.78 X10^3/uL (0.83-4.51); Absolute Neutrophil Count 4.5 X10^3/uL (2.0-7.7); Basophil# 0.04 X10^3/uL; Basophil% 0.6 % (0-1); Eosinophil# 0.15 X10^3/uL; Eosinophils% 2.2 % (0-5); Hematocrit 46.1 % (40-54); Hemoglobin 15.7 g/dL (13.0-16.5); Lymphocyte # 1.78 X10^3/ul (0.83-4.51); Lymphocyte % 25.7 % (19-41); Mean Corp Hgb Conc 34.1 g/dL (32-36); Mean Corpuscular Hgb 30.1 pg (27.0-32.0); Mean Corpuscular Volume 88.5 fL (80-94); Mean Platelet Vol. 10.6 fl (6.2-12.0); Monocyte# 0.42 X10^3/uL; Monocyte% 6.1 % (0-10); NRBC Flagged by Analyzer 0 % (0-5); Neutrophil % 64.8 % (47-70); Platelet Count 202 K/mm3 (150-450); RBC Distribution Width CV 11.9 % (11.6-14.6); Red Blood Count 5.21 M/mm3 (4.6-6.2); White Blood Count 6.9 K/mm3 (4.4-11.0)
[2023-12-03 15:36] LABS: ALB/GLOB Ratio 1.4 RATIO (0.9-2.4); AST(SGOT) 25 U/L (15-37); Alanine Aminotransfer ALT/SGPT 20 U/L (16-61); Albumin, Serum 4.2 g/dL (3.2-5.0); Alkaline Phosphatase 79 U/L (45-117); Anion Gap 8 (5-15); BUN 17 mg/dL (7-18); Calcium,Total 9.2 mg/dL (8.5-10.1); Chloride 107 mmol/L (98-107); Creatinine, Serum 0.85 mg/dL (0.70-1.30); EST Glomerular Filtration Rate 104 mL/min (>60); Est Glom Filt Rate - Afr Amer 126 mL/min (>60); Globulin 2.9 g/dL (2.2-4.2); Glucose 97 mg/dL (74-106); Magnesium 2.2 mg/dL (1.6-2.6); Potassium 3.9 mmol/L (3.5-5.1); Protein, Total 7.1 g/dL (6.4-8.2); Sodium Level 140 mmol/L (136-145); T4 Free Direct 0.93 ng/dL (0.76-1.46); Thyroid Stim Hormone (TSH) 2.11 uIU/mL (0.358-3.74)
== END | disposition home or self-care (01) ==
LOC: LAB 14:13
PROVIDERS: PCP Nurse Practitioner Family; Referring Provider Nurse Practitioner Family; Visit Provider Nurse Practitioner Family
DX: I10 Essential (primary) hypertension (principal); R00.2 Palpitations; I49.1 Atrial premature depolarization
CPT/HCPCS: 36415; 80053; 83735; 84439; 84443; 85025

== ENCOUNTER → 2023-12-31 | Outpatient (CLI) | payer BC, SELFPAY ==
--- NOTE | 2023-12-31 14:18 | ECHOD_ITS ---
Reason For Study: PVCs/PACs Procedure This was a 2D Doppler, Color Flow transthoracic echocardiogram. Exam performed in department. Left Ventricle Normal LV size. Left ventricular systolic function is normal. The estimated ejection fraction is 60 %. No regional wall motion abnormalities noted. Right Ventricle Normal RV size. Normal systolic function. Atria Normal left atrium. Normal right atrium. Mitral Valve Normal mitral valve. Tricuspid Valve Normal tricuspid valve. Aortic Valve Normal aortic valve. Pulmonic Valve Normal pulmonic valve. Great Vessels Normal aortic root. The pulmonary artery is normal size. Normal inferior vena cava. Pericardium/Pleural No pericardial effusion. MMode/2D Measurements & Calculations LVIDd: 4.2 cm IVSd: 1.1 cm LVOT diam: 2.1 cm LVIDs: 2.1 cm LVPWd: 0.82 cm LVOT area: 3.6 cm2 RVDd: 3.0 cm FS: 50.7 % Ao root diam: 3.4 cm LAV(MOD-bp): 39.2 ml LVAd ap4: 32.3 cm2 LAV(MOD-bp) Indexed: 19.6 ml/m2 LVLd ap4: 8.9 cm LAV(MOD-sp2): 37.6 ml EDV(MOD-sp4): 98.3 ml LAV(MOD-sp4): 36.4 ml EDV(sp4-el): 99.9 ml LVAs ap4: 18.2 cm2 LVLs ap4: 6.9 cm ESV(MOD-sp4): 41.0 ml ESV(sp4-el): 41.0 ml EF(MOD-sp4): 58.4 % EF(sp4-el): 59.0 % LVAd ap2: 28.9 cm2 SV(MOD-sp4): 57.4 ml SV(MOD-sp2): 47.6 ml LVLd ap2: 8.2 cm EDV(MOD-sp2): 83.6 ml EDV(sp2-el): 86.3 ml LVAs ap2: 16.8 cm2 LVLs ap2: 6.5 cm ESV(MOD-sp2): 36.0 ml ESV(sp2-el): 36.9 ml EF(MOD-sp2): 56.9 % SV(sp4-el): 58.9 ml LA dimension(2D): 3.4 cm LA A4 area: 15.9 cm2 RA A4 area: 12.6 cm2 TAPSE: 1.9 cm Time Measurements MV dec time: 0.23 sec Doppler Measurements & Calculations MV E max colby: 75.6 cm/sec Lat Peak E' Colby: 14.4 cm/sec Med Peak E' Colby: 10.9 cm/sec MV A max colby: 52.4 cm/sec E/E' lat: 5.3 E/E' med: 6.9 MV E/A: 1.4 Ao V2 max: 128.4 cm/sec LV V1 max: 111.5 cm/sec MV dec slope: 330.0 cm/sec2 Ao max P.6 mmHg LV V1 max P.0 mmHg Ao V2 mean: 85.0 cm/sec LV V1 mean P.4 mmHg Ao mean P.4 mmHg LV V1 mean: 72.2 cm/sec Ao V2 VTI: 26.0 cm LV V1 VTI: 21.4 cm AV (velocity ratio): 0.82 NOE(I,D): 3.0 cm2 NOE(V,D): 3.1 cm2 SV(LVOT): 77.0 ml PA V2 max: 124.5 cm/sec PA max PG (full): 3.2 mmHg ECHO/Echo Complete Interpretation Summary Normal LV size. Left ventricular systolic function is normal. The estimated ejection fraction is 60 %. Structurally normal valves. Ordering Physician: Zeke Pineda Referring Physician: Zeke Pineda Performed By: Sheba Hough RDCS
== END | disposition home or self-care (01) ==
PROVIDERS: PCP Nurse Practitioner Family; Referring Provider Nurse Practitioner Family; Visit Provider Nurse Practitioner Family
DX: I49.1 Atrial premature depolarization (principal); R00.2 Palpitations; I10 Essential (primary) hypertension; I49.3 Ventricular premature depolarization
CPT/HCPCS: 93306

== ENCOUNTER → 2024-02-22 | Outpatient (CLI) | payer BC, SELFPAY ==
[2024-02-22 09:28] LABS: Bacteria 0 SEEN /hpf (None Seen); Mucous, Urine 0 SEEN /hpf (<or=2+); Red Blood Cells-Urine 0 SEEN /hpf (0-5); Squamous Epithelial Cells - UA 0 SEEN /hpf (0-5); White Blood Cells 0 SEEN /hpf (0-5)
[2024-02-22 10:23] LABS: Color, Urine Yellow (Yellow); Glucose, Dipstick Normal (Normal); Ketone-Dipstick Negative (Negative); Leukocyte Esterase-Dipstick Negative /ul (Negative); Nitrite-Dipstick Negative (Negative); Occult Blood-Urine 10 /ul (Negative); Protein-Dipstick Negative (Negative); Specific Gravity, Urine 1.015 (1.002-1.030); Urine Bilirubin Dipstick Negative (Negative); Urine Clarity Clear (Clear); Urine Urobilinogen Normal (Normal)
[2024-02-22 11:39] LABS: Cholesterol 172 mg/dL (200); High Density Lipoprotein 35 mg/dL; Triglycerides 142 mg/dL; Very Low Density Lipoprotein 28 mg/dL (5-40)
[2024-02-24 09:13] LABS: Vitamin B12 445 pg/mL (211-911)
[2024-02-24 14:08] LABS: Vitamin D 1,25-Dihydroxy 52.3 pg/mL (24.8-81.5)
== END | disposition home or self-care (01) ==
LOC: LAB 09:12
PROVIDERS: PCP Nurse Practitioner Family; Referring Provider Nurse Practitioner Family; Visit Provider Nurse Practitioner Family
DX: E78.5 Hyperlipidemia, unspecified (principal); I10 Essential (primary) hypertension; Z13.21 Encounter for screening for nutritional disorder
CPT/HCPCS: 36415; 80061; 81001; 82607; 82652; 82746

== ENCOUNTER → 2024-08-21 | Outpatient (CLI) | payer BC, SELFPAY ==
--- NOTE | 2024-08-21 16:08 | RAD_ITS ---
EXAM: XR ABDOMEN, 2 VIEWS AND XR CHEST, 1 VIEW CLINICAL INDICATION: EPIGASTRIC PRESSURE TECHNIQUE: Frontal view of the chest, frontal view of the abdomen/pelvis and upright or decubitus view of the abdomen. COMPARISON: Chest radiograph May 06, 2018. FINDINGS: CHEST: LUNGS AND PLEURAL SPACES: Unremarkable. No consolidation or edema. No pneumothorax. No effusion. HEART: Unremarkable. Cardiac silhouette not enlarged. MEDIASTINUM: Central airways and mediastinal contour are unremarkable. ABDOMEN: INTRAPERITONEAL SPACE: No free air. GASTROINTESTINAL TRACT: Mild gas and stool in the colon and mild stool in the rectum. No dilated small bowel. ORGANS: Unremarkable as visualized. No organomegaly. No abnormal calcifications. TUBES, LINES AND DEVICES: None. BONES/JOINTS: No acute findings. SOFT TISSUES: No acute findings. RAD/Acute Abdomen Inc Chest IMPRESSION: No acute findings in the chest, abdomen or pelvis. Mild-moderate stool in the colon. Electronically Signed: Leilani Pardo MD at 16:28 EST ,
== END | disposition home or self-care (01) ==
LOC: MTRAD 16:01
PROVIDERS: PCP Nurse Practitioner Family; Referring Provider Nurse Practitioner Family; Visit Provider Nurse Practitioner Family
DX: R40.0 Somnolence (principal); R10.13 Epigastric pain
CPT/HCPCS: 74022

== ENCOUNTER → 2024-10-06 | Outpatient (CLI) | payer BC, SELFPAY | END | disposition home or self-care (01) | LOC: SL 19:40 | PROVIDERS: PCP Nurse Practitioner Family; Referring Provider Nurse Practitioner Family; Visit Provider Nurse Practitioner Family | DX: R40.0 Somnolence (principal); R10.13 Epigastric pain | CPT/HCPCS: 95810 ==

== ENCOUNTER → 2024-11-03 | Outpatient (CLI) | payer BC, SELFPAY | END | disposition home or self-care (01) | LOC: SL 13:41 | PROVIDERS: PCP Nurse Practitioner Family; Visit Provider Nurse Practitioner Family | DX: Z46.89 Encounter for fitting and adjustment of other specified devices (principal) ==

== ENCOUNTER → 2025-04-15 | Outpatient (CLI) | payer BC, SELFPAY | END | disposition home or self-care (01) | PROVIDERS: PCP Nurse Practitioner Family; Referring Provider Internal Medicine; Visit Provider Internal Medicine | DX: R13.10 Dysphagia, unspecified (principal); R00.1 Bradycardia, unspecified | CPT/HCPCS: 74221; 93225; 93226 ==

== ENCOUNTER → 2025-06-22 | Outpatient (CLI) | payer BC, SELFPAY ==
[2025-06-22 16:50] LABS: Hematocrit 45.9 % (40-54); Hemoglobin 16.2 g/dL (13.0-16.5); Immature Granulocytes Count 0.040 X10^3/uL (0.0-0.0); Mean Corp Hgb Conc 35.3 g/dL (32-36); Mean Corpuscular Volume 85.3 fL (80-94); Mean Platelet Vol. 10.6 fl (6.2-12.0); NRBC Flagged by Analyzer 0 % (0-5); Platelet Count 212 K/mm3 (150-450); RBC Distribution Width CV 12.1 % (11.6-14.6); RBC Distribution Width SD 37.2 fl (35.1-43.9); Red Blood Count 5.38 M/mm3 (4.6-6.2); White Blood Count 8.0 K/mm3 (4.4-11.0)
[2025-06-22 17:28] LABS: Anion Gap 14 (5-15); BUN 19 mg/dL (4-19); BUN/Creat Ratio 23.4 RATIO (10-20); Calcium,Total 9.7 mg/dL (7.6-11.0); Carbon Dioxide 20.1 mmol/L (21.0-32.0); Chloride 103 mmol/L (98-108); Glucose 82 mg/dL (70-99); Potassium 4.4 mmol/L (3.3-5.1)
== END | disposition home or self-care (01) ==
LOC: LAB 16:19
PROVIDERS: PCP Nurse Practitioner Family; Referring Provider Nurse Practitioner Family; Visit Provider Nurse Practitioner Family
DX: I49.1 Atrial premature depolarization (principal); I10 Essential (primary) hypertension; G47.33 Obstructive sleep apnea (adult) (pediatric); R00.2 Palpitations; R53.83 Other fatigue
CPT/HCPCS: 36415; 80048; 84443; 85025

== ENCOUNTER → 2025-07-26 | Outpatient (CLI) | payer BC, SELFPAY | END | disposition home or self-care (01) | LOC: CVS 13:22 | PROVIDERS: PCP Nurse Practitioner Family; Referring Provider Nurse Practitioner Family; Visit Provider Nurse Practitioner Family | DX: R53.83 Other fatigue (principal); G47.33 Obstructive sleep apnea (adult) (pediatric); I49.1 Atrial premature depolarization; R00.2 Palpitations; I10 Essential (primary) hypertension ==

== ENCOUNTER → 2025-08-24 | Outpatient (CLI) | payer BC, SELFPAY ==
--- NOTE | 2025-08-24 06:02 | ECHOD_ITS ---
Reason For Study Reason For Study: Elevated PVC [place] Procedure This was a 2D Doppler, Color Flow transthoracic echocardiogram. Exam performed in department. Left Ventricle Normal LV size. Left ventricular systolic function is normal. The left ventricular ejection fraction is 65 %. Normal diastology for age. No regional wall motion abnormalities noted. Right Ventricle Normal RV size. Atria Normal left atrium. Normal right atrium. Mitral Valve Normal mitral valve. Tricuspid Valve Normal tricuspid valve. Mild (1+) tricuspid valve insufficiency. Pulmonary artery systolic pressure is 25 mmHg. Aortic Valve Trisinus/trileaflet aortic valve. Pulmonic Valve Normal pulmonic valve. Great Vessels Normal aortic root. The pulmonary artery is normal size. Inferior vena cava collapse with respiration. Pericardium/Pleural No pericardial effusion. MMode/2D Measurements & Calculations LVIDd: 5.2 cm IVSd: 0.87 cm Ao root diam: 3.6 cm LVIDs: 3.3 cm LVPWd: 0.98 cm RVDd: 4.0 cm FS: 37.3 % LAV(MOD-bp): 39.9 ml LVAd ap4: 32.0 cm2 SV(MOD-sp4): 65.2 ml LAV(MOD-bp) Indexed: 19.4 ml/m2 LVLd ap4: 8.7 cm SI(MOD-sp4): 31.7 ml/m2 LAV(MOD-sp2): 38.9 ml EDV(MOD-sp4): 95.6 ml LAV(MOD-sp4): 38.5 ml EDV(sp4-el): 99.6 ml LVAs ap4: 15.5 cm2 LVLs ap4: 6.7 cm ESV(MOD-sp4): 30.5 ml ESV(sp4-el): 30.3 ml EF(MOD-sp4): 68.1 % EF(sp4-el): 69.5 % SV(sp4-el): 69.3 ml LA A4 area: 15.8 cm2 LA dimension(2D): 4.0 cm RA A4 area: 13.0 cm2 Time Measurements MV dec time: 0.19 sec Doppler Measurements & Calculations MV E max colby: 97.9 cm/sec Lat Peak E' Colby: 12.7 cm/sec Med Peak E' Colby: 10.7 cm/sec MV A max colby: 81.3 cm/sec E/E' lat: 7.7 E/E' med: 9.1 MV E/A: 1.2 Ao V2 max: 141.7 cm/sec LV V1 max: 118.1 cm/sec MV dec slope: 503.9 cm/sec2 Ao max P.0 mmHg LV V1 max P.9 mmHg Ao V2 mean: 108.2 cm/sec Ao mean P.0 mmHg Ao V2 VTI: 29.2 cm PA V2 max: 112.6 cm/sec TR max colby: 234.5 cm/sec TR max P.0 mmHg ECHO/Echo Complete Interpretation Summary Normal LV size. Left ventricular systolic function is normal. The left ventricular ejection fraction is 65 %. No regional wall motion abnormalities noted. Normal diastology for age. Structurally normal valves. Ordering Physician: Zeke Pineda Referring Physician: Jennifer Mora Performed By: Dipti Pineda, MELODIE, RVT
--- OUTSIDE RECORDS SUMMARY | 2025-08-24 06:03 | XMS RPT_ITS | CCD ---
Author Organization [facility] Care Team Providers Care Lap Machine Operator Name Role Phone Siri Bette Unavailable Lata Jaime Unavailable Romain Leiva Unavailable Kervin Ma Unavailable Unavailable Unavailable Unavailable Kj Hung Unavailable Sara Horner Unavailable Unavailable Siri Sara Unavailable Lata Jaime Unavailable Dr. Kj Hung MD Unavailable Romain Leiva MD Unavailable Sheri Bennett CNP Unavailable Kervin Rubin LPN Unavailable Unavailable Kezia Sarkar LPN Unavailable Unavailable Unavailable Unavailable Siri Sara Attending Unavailable Candycar Sara Referring Unavailable Jrsantino Sara Consulting Unavailable Maikol Bob Unavailable SHERI BENNETT Consulting Unavailable BULL BRUNO Attending Unavailable BULL BRUNO Primary Care Unavailable BULL BRUNO Admitting Unavailable SHERI BENNETT Referring Unavailable PROVIDER, UNKNOWN Consulting Unavailable ARISTEO Bennett Primary Care Provider [phone] ARISTEO Bennett Referring Provider [phone] Miriam WEATHER TEACHER WEATHER TEACHER-C Zeke Bergeron Attending Provider [phone] James Campbell Attending Provider Morgan JOHNSON-Sheri Noel Primary Care Provider [phone] Morgan WEATHER TEACHER-C, Sheri Referring Provider Roof WEATHER TEACHER-C, Zeke Bergeron Attending Provider Dr. Dinora Torres DO Attending Provider [phone] Dr. Dinora Torres DO Referring Provider [phone] Adrian MEDEL, Dr. Ramirez Attending Provider Morgan WEATHER TEACHER-C, Sheri Primary Care Physician [phone] Dr. Dinora Torres DO Attending Physician [phone] Adrian MEDEL, Dr. Ramirez Attending Physician Morgan WEATHER TEACHER-C, Sheri Referring Provider Roof WEATHER TEACHER-C, Zeke H Attending Physician [phone] Morgan, Sheri Primary Care Unavailable Morgan, Sheri Attending Unavailable Morgan, Sheri Referring Unavailable Roof WEATHER TEACHER, Zeek H Attending Unavailable Morgan, Sheri Primary Care Unavailable Morgan, Sheri Referring Unavailable Roof WEATHER TEACHER, Zeke Bergeron Attending Unavailable Morgan, Sheri Referring Unavailable Morgan, Sheri Primary Care Unavailable James Campbell Attending Unavailable Morgan, Sheri Primary Care Unavailable MelissaDinora Referring Unavailable Morgan, Sheri Primary Care Unavailable Morgan, Sheri Attending Unavailable Morgan, Sheri Referring Unavailable Morgan, Sheri Primary Care Unavailable Melissa, Dinora Attending Unavailable Melissa, Dinora Referring Unavailable Morgan, Sheri Primary Care Unavailable Morgan, Sheri Attending Unavailable Roof WEATHER TEACHER, Zeke H Referring Unavailable Morgan, Sheri Primary Care Unavailable Roof WEATHER TEACHER, Zeke Bergeron Attending Unavailable Roof WEATHER TEACHER, Zeke H Referring Unavailable Morgan, Sheri Primary Care Unavailable Roof WEATHER TEACHER, Zeke H Attending Unavailable Allergies Allergy Classification Reported Allergen(s) Allergy Type Date of Onset Reaction(s) Facility (18 sources) DULoxetine; Translations: [Cymbalta *ANTIDEPRESSANT S*] Drug Allergy 3 [facility] Work Phone: Comment on above: dileep (19 sources) Penicillins; Translations: [Penicillins] allergy to substance 3 Vomiting, Diarrhea [facility] Work Phone: (1 source) Penicillin Drug Allergy [facility] Repository (1 source) DULoxetine Drug Allergy [facility] Repository Medications Current Medications Medication Drug Class(es) Dates Sig (Normalized) Sig (Original) amLODIPine 5 mg oral tablet (20 sources) Dihydropyridine Calcium Channel Latoya Start: 06-16-2024 take 1 tablet by mouth once daily Amlodipine 5 mg tablet Active 5 mg PO daily 90 June 16, 2024 12:00am Complies with drug therapy Start: 05-02-2023 End: 01-01-2024 take 1 tablet by mouth once daily Amlodipine 5 mg tablet Discontinued 5 mg PO DAILY 90 May 02, 2023 3:22pm January 01, 2024 4:41pm Start: 10-22-2019 End: 05-02-2023 take 1 tablet by mouth once daily Amlodipine 2.5 mg tablet Discontinued 2.5 mg PO DAILY 90 July 17, 2022 10:24am May 02, 2023 3:23pm Comment on above: Per cardio 24 hr metoprolol succinate 25 mg extended release oral tablet (2 sources) beta-Adrenergic Latoya Start: 06-16-2024 take 1 tablet by mouth once daily Metoprolol Succinate (Toprol Xl) 25 mg tablet extended release 24 hr Active 25 mg PO daily 90 June 16, 2024 12:00am Complies with drug therapy Multivitamin (Daily Multi-Vitamin) tablet (5 sources) Start: 11-07-2023 Multivitamin (Daily Multi-Vitamin) tablet Active 1 {tbl} PO DAILY November 07, 2023 1:00am Complies with drug therapy Start: 11-07-2023 Multivitamin ( Daily Multi-Vitamin) tablet Active 1 {tbl} PO DAILY November 07, 2023 1:00am Start: 11-07-2023 take 1 tablet by baljit th once daily Multivitamin (Daily Multi-Vitamin) tablet Active 1 TABLET PO DAILY November 07, 2023 1:00am omeprazole 20 mg delayed release oral capsule (3 sources) Proton Pump Inhibitor Start: 06-22-2025 take 2 capsules by mouth once daily Omeprazole 20 mg capsule,delayed release(DR/EC) Active 40 mg PO daily June 22, 2025 3:10pm Complies with drug therapy Start: 01-18-2025 End: 06-22-2025 take 1 capsule by mouth every other day Omeprazole 20 mg capsule,delayed release(DR/EC) Discontinued 20 mg PO every other day January 18, 2025 12:00am June 22, 2025 3:11pm spironolactone 25 mg oral tablet (1 source) Aldosterone Antagonist Start: 06-11-2025 take 1 tablet by mouth once daily Spironolactone 25 mg tablet Active 25 mg PO DAILY 15 03June 11, 2025 12:00am Complies with drug therapy Completed/Discontinued Medications Medication Drug Class(es) Dates Sig (Normalized) Sig (Original) aspirin 81 mg oral tablet (7 sources) Platelet Aggregation Inhibitor, Nonsteroidal Anti-inflammatory Drug Start: 04-21-2023 End: 06-16-2024 take 1 capsule by mouth once daily Aspirin 81 mg capsule Discontinued 81 mg PO DAILY April 21, 2023 12:00am June 16, 2024 2:46pm cholecalciferol 0.05 mg oral capsule (11 sources) Vitamin D Start: 05-20-2018 End: 06-19-2018 take 1 capsule by mouth once daily Vitamin D3 2000 UNIT Oral Capsule 1 (one) Capsule daily for 30 days Quantity: 30 {Capsule} Refills: 0 Ordered: 20-May-2018 Sara Horner Start : 20-May-2018 End : 19-Jun-2018 Inactive citalopram 10 mg oral tablet (11 sources) Serotonin Reuptake Inhibitor Start: 02-13-2017 End: 06-25-2017 Citalopram Hydrobromide 10 MG Oral Tablet 1 (one) Tablet every other day for 2 weeks, then every 3rd for 2 weeks then every 4 days for 2 weeks for 0 days Quantity: 30 {Tablet} Refills: 0 Ordered: 25-Jun-2017 Kezia Sarkar LPN Start : 13-Feb-2017 End : 25-Jun-2017 Discontinued 24 hr dilTIAZem hydrochloride 120 mg extended release oral capsule (7 sources) Calcium Channel Latoya Start: 03-18-2024 End: 06-16-2024 take 1 capsule by mouth once daily Diltiazem Hcl 120 mg capsule,extended release 24 hr Discontinued 120 mg PO daily 15 08March 18, 2024 2:10pm June 16, 2024 3:03pm Start: 03-13-2024 End: 03-18-2024 take 1 capsule by mouth twice daily Diltiazem Hcl 120 mg capsule,extended release 24 hr Discontinued 120 mg PO TWICE A DAY 15 08March 13, 2024 2:59pm March 18, 2024 2:10pm Start: 01-01-2024 End: 03-13-2024 take 1 capsule by mouth once daily Diltiazem Hcl 120 mg capsule,extended release 24 hr Discontinued 120 mg PO DAILY 15 08January 01, 2024 12:00am March 13, 2024 3:00pm DULoxetine 20 mg delayed release oral capsule (11 sources) Serotonin and Norepinephrine Reuptake Inhibitor Start: 02-10-2016 End: 03-28-2016 Cymbalta 20 MG Oral Capsule Delayed Release Particles 1 (one) Capsule DR Part qod for 0 days Quantity: 30 {Capsule} Refills: 1 Ordered: 28-Mar-2016 Kezia Sarkar LPN Start : 10-Feb-2016 End : 28-Mar-2016 Discontinued ergocalciferol 1.25 mg oral capsule (11 sources) Provitamin D2 Compound Start: 08-05-2017 End: 05-06-2018 Ergocalciferol 90339 UNIT Oral Capsule 1 (one) Capsule twice weekly x 3months for 0 days Quantity: 24 {Capsule} Refills: 0 Ordered: 06-May-2018 Alana Ortega Start : 05-Aug-2017 End : 06-May-2018 Discontinued ibuprofen 600 mg oral tablet (11 sources) Nonsteroidal Anti-inflammatory Drug Start: 06-25-2017 End: 05-06-2018 take 1 tablet by mouth every eight hours as needed Ibuprofen 600 MG Oral Tablet 1 (one) Tablet Tablet q8hrs prn for 0 days Quantity: 30 {Tablet} Refills: 0 Ordered: 06-May-2018 Alana Ortega Start : 25-Jun-2017 End : 06-May-2018 Discontinued meloxicam 7.5 mg oral tablet (13 sources) Nonsteroidal Anti-inflammatory Drug Start: 01-21-2023 take 1 tablet by mouth twice daily meloxicam 7.5 mg oral tablet 1 (one) tablet one tab twice per day for 0 days Quantity: 60 {Tablet} Refills: 1 Ordered: 21-Jan-2023 Sheri Bennett CNP Start : 21-Jan-2023 Active Start: 06-22-2019 End: 01-21-2023 take 1 tablet by mouth at mealtime meloxicam 15 mg oral tablet 1 (one) Tablet dailywith food for 0 days Quantity: 30 {Tablet} Refills: 0 Ordered: 21-Jan-2023 Kezia Sarkar LPN Start : 22-Jun-2019 End : 21-Jan-2023 Inactive predniSONE 50 mg oral tablet (5 sources) Start: 05-02-2023 End: 11-07-2023 Prednisone 50 mg tablet Discontinued 60 mg PO DAILY May 02, 2023 12:00am November 07, 2023 3:43pm tapering dose Start: 05-02-2023 End: 11-07-2023 take 60 mg by mouth once daily Prednisone Discontinued 60 MG PO DAILY May 02, 2023 12:00am November 07, 2023 3:43pm tapering dose terbinafine hydrochloride 10 mg/ml topical cream (20 sources) Allylamine Antifungal Start: 02-17-2019 End: 05-18-2019 take 1 tablet by mouth once daily Terbinafine HCl 250 MG Oral Tablet 1 (one) Tablet daily for 90 days Quantity: 90 {Tablet} Refills: 0 Ordered: 17-Feb-2019 Sara Horner Start : 17-Feb-2019 End : 18-May-2019 Inactive Start: 02-17-2019 End: 03-10-2019 Terbinafine HCl 1 % External Cream 1 (one) Application bid for 21 days Quantity: 1 {Tube} Refills: 0 Ordered: 17-Feb-2019 Sara Horner Start : 17-Feb-2019 End : 10-Mar-2019 Inactive varenicline 1 mg oral tablet (20 sources) Partial Cholinergic Nicotinic Agonist Start: 08-19-2018 End: 02-17-2019 Chantix Starting Month Kennedy 0.5 MG X 11 & 1 MG X 42 Oral Tablet 1 (one) Tablet TAD for 0 days Quantity: 1 {Package} Refills: 0 Ordered: 17-Feb-2019 Kervin Rubin LPN Start : 19-Aug-2018 End : 17-Feb-2019 Inactive Comments: start drug 1wk before quit date Start: 08-19-2018 End: 02-17-2019 take 1 tablet by mouth once Chantix Continuing Month P ak 1 MG Oral Tablet 1 (one) Tablet TAD for 0 days Quantity: 1 {Package} Refills: 1 Ordered: 17-Feb-2019 Kervin Rubin LPN Start : 19-Aug-2018 End : 17-Feb-2019 Inactive Comment on above: start drug 1wk befor e quit date NEGATED: Highlighted row has not occurred!drug or medication (5 sources) No Known Histori kate Medications Problems Active Problems Problem Classification Problem Date Documented Da te Episodic/Chronic Anxiety disorders (20 sources) Panic disorder; Translations: [Anxiety] Resolved: 7 06-25-2017 Chronic Comment on above: unable to tolerate c ymbalta, will try cytalopram at low dose and reevaluate, seeing counselor unable to tolerate c ymbalta, will try citalopram at low dose and reevaluate, seeing counselor was unable to tolera te cymbalta, citalopram at low dose and reevaluate, seeing counselor Blindness and vision defects (7 sources) Visual alteration; Translations: [Unspecified visual loss] 04-21-2023 Chronic Cardiac dysrhythmias (13 sources) Supraventricular premature beats; Translations: [Atrial premature depolarization] Onset: 5 06-17-2018 Chronic Cardiac dysrhythmias (20 sources) Palpitations; Translations: [Palpitation] Onset: 5 08-19-2018 Episodic Comment on above: abnormal holter Tota l SVE 0.6% and Total VE 0.3% Send to cardio. Conditions associated with dizziness or vertigo (20 sources) Dizziness; Translations: [Dizziness] 08-19-2018 Episodic Deficiency and other anemia (8 sources) Hemoglobin low; Translations: [Low hemoglobin] 01-28-2023 Episodic E Codes: Struck by; against (1 source) Striking against or struck by other objects, initial encounter; Translations: [Striking against or struck by other objects, initial encounter] Onset: 4 Episodic Essential hypertension (20 sources) Hypertensive disorder; Translations: [Hypertension] Onset: 4 Resolved: 7 08-19-2018 Chronic Comment on above: will check it at [facility] and several readings thru week stable on amlodipine 2.5mg per cardiology Malaise and fatigue (3 sources) Fatigue; Translations: [Other fatigue] Onset: 5 06-22-2025 Episodic Mycoses (20 sources) Onychomycosis; Translations: [Tinea corporis] 02-17-2019 Episodic Nutritional deficiencies (20 sources) Vitamin D deficiency; Translations: [Vitamin D deficiency] 08-19-2018 Chronic Nutritional deficiencies (4 sources) Decreased vitamin D; Translations: [Low vitamin D level] 02-17-2019 Episodic Open wounds of head; neck; and trunk (3 sources) Laceration without foreign body of other part of head, initial encounter; Translations: [Laceration without foreign body of other part of head, initial encounter] Onset: 4 Episodic Other circulatory disease (20 sources) Elevated blood-pressure reading, without diagnosis of hypertension; Translations: [Prehypertension] Resolved: 3 08-19-2018 Episodic Comment on above: will monitor, saw Mo odispaw, stress, echo, etc good occasional PVC's and Pac's Other connective tissue disease (1 source) Pain in upper limb Episodic Other endocrine disorders (20 sources) Hypoglycemia; Translations: [Hypoglycemia] 08-19-2018 Chronic Other gastrointestinal disorders (1 source) Dysphagia, unspecified; Translations: [Dysphagia, unspecified] Onset: 5 Episodic Other hereditary and degenerative nervous system conditions (4 sources) Cerebral atrophy; Translations: [Brain atrophy] 04-23-2023 Chronic Other lower respiratory disease (20 sources) Shortness of breath; Translations: [Dyspnea] 08-19-2018 Episodic Comment on above: sometimes on exertio n, sometimes not Other nervous system disorders (12 sources) Carpal tunnel syndrome, right upper limb; Translations: [Carpal tunnel syndrome of right wrist] 08-19-2018 Chronic Other nervous system disorders (16 sources) Paresthesia of hand ; Translations: [Right hand paresthesia] 08-19-2018 Episodic Comment on above: ? 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 at be dtime ES 2 pretty regularly Other non-traumatic joint disorders (13 sources) Pain in elbow; Translations: [Elbow pain, right] 06-22-2019 Episodic Other non-traumatic joint disorders (6 sources) Pain in left shoulder; Translations: [Left shoulder pain] 01-21-2023 Episodic Comment on above: taking tylenol at be dtime ES 2 pretty regularly Other non-traumatic joint disorders (9 sources) Pain in right shoulder; Translations: [Right shoulder pain] 01-21-2023 Episodic Comment on above: 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 [facility] Other nutritional; endocrine; and metabolic disorders (20 sources) Body mass index 30+ - obesity; Translations: [BMI 32.0-32.9,adult] Resolved: 3 02-17-2019 Chronic Other screening for suspected conditions (not mental disorders or infectious disease) (20 sources) Other specified abnormal findings of blood chemistry; Translations: [Patient encounter status] Resolved: 3 05-20-2018 Episodic Rehabilitation care; fitting of prostheses; and adjustment of devices (1 source) Encounter for fitting and adjustment of other specified devices; Translations: [Encounter for fitting and adjustment of other specified devices] Onset: 5 Chronic Residual codes; unclassified (4 sources) Obstructive sleep apnea syndrome; Translations: [Obstructive sleep apnea (adult) (pediatric)] 01-18-2025 Chronic Comment on above: Dr. Choudhury; Residual codes; unclassified (1 source) Obstructive sleep apnea (adult) (pediatric); Translations: [Obstructive sleep apnea (adult) (pediatric)] Onset: 5 Chronic Residual codes; unclassified (20 sources) Chews tobacco ; Translations: [Chewing tobacco use] 08-19-2018 Episodic Comment on above: discussed use and co nsider quitting plan Residual codes; unclassified (20 sources) Non-smoker; Translations: [Nonsmoker] 01-21-2023 Episodic Unclassified (6 sources) Right hand paresthesia Unclassified (20 sources) Palpitation Unclassified (20 sources) Unclassified (20 sources) Low vitamin D level Unclassified (20 sources) Non-smoker; Translations: [Nonsmoker] 02-17-2019 Unclassified (12 sources) Right shoulder pain Unclassified (17 sources) BMI 33.0-33.9,adult Unclassified (12 sources) Chewing tobacco use Unclassified (12 sources) Borderline hypertension Unclassified (18 sources) BMI 32.0-32.9,adult Past or Other Problems Problem Classification Problem Date Documented Da te Episodic/Chronic Allergic reactions (5 sources) Contact dermatitis; Translations: [Contact Dermatitis] Resolved: 06-25-2017 06-25-2017 Episodic Coma; stupor; and brain damage (1 source) Somnolence; Translations: [Somnolence] Onset: 10-25-2024 Episodic Disorders of teeth and jaw (11 [...] Results Test Name Value Interpretation Reference Range Facility Basic Metabolic Profile (BMP )on 06-22-2025 BUN/CRE 23.4 RATIO High 07-05 [facility] Comment on above: Performed By: #### L 100.0100, L501.9520, L500.2500 #### [facility] [place], [address] Calcium [Mass/Vol] 9.7 mg/dL Normal 7.6-11.0 [facility] Comment on above: Performed By: #### L 100.0100, L501.9520, L500.2500 #### [facility] [address] [place], [address] Chloride [Moles/Vol] 103 mmol/L Normal 98-108 [facility] Comment on above: Performed By: #### L 100.0100, L501.9520, L500.2500 #### [facility] [address] [place], [address] CO2 [Moles/Vol] 20.1 mmol/L Low 21.0-32.0 [facility] Comment on above: Performed By: #### L 100.0100, L501.9520, L500.2500 #### [facility] [address] [place], [address] Creatinine [Mass/Vol] 0.82 mg/dL Normal 0.70-1.20 [facility] Comment on above: Performed By: #### L 100.0100, L501.9520, L500.2500 #### [facility] [address] [place], [address] GAP 14 Normal 5-15 [facility] Comment on above: Performed By: #### L 100.0100, L501.9520, L500.2500 #### [facility] [address] [place], [address] GFR/1.73 sq M.predicted among non-blacks MDRD (S/P/Bld) [Vol rate/Area] 110 mL/min/{1.73_m2} Normal >60 [facility] Comment on above: Result Comment: mL/m in/1.73m2 CKD-EPI Creatinine Equation (2020) Performed By: #### L 100.0100, L501.9520, L500.2500 #### [facility] [address] [place], [address] Glucose [Mass/Vol] 82 mg/dL Normal 70-99 [facility] Comment on above: Performed By: #### L 100.0100, L501.9520, [id number] #### [facility] [address] [place], [address] Potassium [Moles/Vol] 4.4 mmol/L Normal 3.3-5.1 [facility] Comment on above: Result Comment: Hemo lysis present, Results??could be affected. ?? Performed By: #### L 100.0100, L501.9520, L500.2500 #### [facility] [address] [place], [address] Sodium [Moles/Vol] 138 mmol/L Normal 133-145 [facility] Comment on above: Performed By: #### L 100.0100, L501.9520, L500.2500 #### [facility] [address] [place], [address] Urea nitrogen [Mass/Vol] 19 mg/dL Normal 4-19 [facility] Comment on above: Performed By: #### L 100.0100, [id number], L500.2500 #### [facility] [address] [place], [address] CBC W/Diff, Automatedon 10-0 7-2024 Absolute Lymph 2.30 X10 3/uL Normal 0.83-4.51 [facility] Comment on above: Performed By: #### L 100.0100, L501.9520, L500.2500 #### [facility] [address] [place], [address] Absolute Neut 5.0 X10 3/uL Normal 2.0-7.7 [facility] Comment on above: Performed By: #### L 100.0100, L501.9520, L500.2500 #### [facility] [address] [place], [address] Basophils/100 WBC (Bld) 0.5 % Normal 0-1 [facility] Comment on above: Performed By: #### L 100.0100, L501.9520, L500.2500 #### [facility] [address] [place], [address] Eosinophils/100 WBC (Bld) 1.5 % Normal 0-5 [facility] Comment on above: Performed By: #### L 100.0100, L501.9520, L500.2500 #### [facility] [address] [place], [address] Erythrocyte distribution width (RBC) [Ratio] 12.1 % Normal 11.6-14.6 [facility] Comment on above: Performed By: #### L 100.0100, L501.9520, L500.2500 #### [facility] [address] [place], [address] Hematocrit (Bld) [Volume fraction] 45.9 % Normal 40-54 [facility] Comment on above: Performed By: #### L 100.0100, [id number], L500.2500 #### [facility] [address] [place], [address] Hemoglobin (Bld) [Mass/Vol] 16.2 g/dL Normal 13.0-16.5 [facility] Comment on above: Performed By: #### L 100.0100, L501.9520, L500.2500 #### [facility] [address] [place], [address] IG% 0.500 Normal 0.0-0.9 [facility] Comment on above: Result Comment: IG% - Immature Granulocytes (promyelocytes, myelocytes and metamyelocytes) > 1% indicates that a LEFT SHIFT is Present. Performed By: #### L 100.0100, L501.9520, L500.2500 #### [facility] [address] [place], [address] Lymphocytes/100 WBC (Bld) 28.7 % Normal 19-41 [facility] Comment on above: Performed By: #### L 100.0100, L501.9520, L500.2500 #### [facility] [address] [place], [address] MCH (RBC) [Entitic mass] 30.1 pg Normal 27.0-32.0 [facility] Comment on above: Performed By: #### L 100.0100, L501.9520, L500.2500 #### [facility] [address] [place], [address] MCHC (RBC) [Mass/Vol] 35.3 g/dL Normal 32-36 [facility] Comment on above: Performed By: #### L 100.0100, L501.9520, L500.2500 #### [facility] [address] [place], [address] MCV (RBC) [Entitic vol] 85.3 fL Normal 80-94 [facility] Comment on above: Performed By: #### L 100.0100, [id number], L500.2500 #### [facility] [address] [place], [address] Monocytes/100 WBC (Bld) 6.7 % Normal 0-10 [facility] Comment on above: Performed By: #### L 100.0100, L501.9520, L500.2500 #### [facility] [address] [place], [address] Neutrophils/100 WBC (Bld) 62.1 % Normal 47-70 [facility] Comment on above: Performed By: #### L 100.0100, L501.9520, L500.2500 #### [facility] [address] [place], [address] Nucleated RBC (Bld) [#/Vol] 0 10*3/uL Normal 0-5 [facility] Comment on above: Performed By: #### L 100.0100, [id number], L500.2500 #### [facility] [address] [place], [address] Platelet mean volume (Bld) [Entitic vol] 10.6 fL Normal 6.2-12.0 [facility] Comment on above: Performed By: #### L 100.0100, [id number], L500.2500 #### [facility] [address] [place], [address] Platelets (Bld) [#/Vol] 212 10*3/uL Normal 150-450 [facility] Comment on above: Performed By: #### L 100.0100, [id number], L500.2500 #### [facility] [address] [place], [address] RBC (Bld) [#/Vol] 5.38 10*6/uL Normal 4.6-6.2 [facility] Comment on above: Performed By: #### L 100.0100, L501.9520, L500.2500 #### [facility] [address] [place], [address] RDW SD 37.2 fl Normal 35.1-43.9 [facility] Comment on above: Performed By: #### L 100.0100, [id number], L500.2500 #### [facility] [address] [place], [address] WBC (Bld) [#/Vol] 8.0 10*3/uL Normal 4.4-11.0 [facility] Comment on above: Performed By: #### L 100.0100, L501.9520, L500.2500 #### [facility] [address] [place], [address] Cardiology Visit Reporton Cardiology Visit Report [facility] [address] [place] [address] OFFICE VISIT Date of Service: 06/22/25 MR#: [id number] Acct: [id number] Name: BRIDGER PAREDES Rep #: [id number] : 1980 Provider: ARISTEO sweeney Age/Sex: 44/M Location: [facility] [place] Status: Signed HPI HPI History of Present Illness Details: This is a 44-year-old white male who presents today for outpatient cardiovascular follow-up based upon concerns of palpitations/cardiac ectopy and hypertension. He has mild-moderate DIANE with regular CPAP therapy. He states episode of chest pain a few days ago. He states intermittent palpitations that he describes as a skipping. He denies bilateral lower extremity edema, but acknowledges occasional right lower extremity edema that improves with rest/elevation. He denies claudication. He denies shortness of breath with activity, shortness of breath at rest, orthopnea, or PND. He denies chronic cough. He denies significant, sudden weight gain. He states dizziness and light headedness. He denies near-syncope or syncope. He denies blood in urine, blood in stool, or epistaxis. He denies fever with chills. He denies myalgia. He weakness, headache, and fatigue. His exercise level has remained stable. 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 Is patient in pain?: No Allergies duloxetine (From Cymbalta) Allergy (Severe, Verified 06/22/25 15:10) foggy Penicillins Adverse Reaction (Severe, Verified 06/22/25 15:10) Diarrhea, Vomiting Medications ???Medication ???Instructions ???Recorded ???Confirmed ???Type multivitamin (Daily Multi-Vitamin 1 tab PO DAILY 11/07/23 06/22/25 History tablet) amlodipine 5 mg tablet 5 mg PO QDAY #90 tabs 06/16/2404/09 Rx metoprolol succinate 25 mg 25 mg PO QDAY #90 tabs 06/16/24 Rx tablet,extended release 24 hr (Toprol XL) spironolactone 25 mg tablet 25 mg PO DAILY #30 tabs 06/11/25 1 Rx omeprazole 20 mg capsule,delayed 40 mg PO QDAY 06/22/25 06/22/25 Hi story release Have you fallen in the past year?: No PFSH Medical History (Updated 06/24/25 @ 13:52 by Zeke Pineda WEATHER TEACHER, WEATHER TEACHER-C) Premature supraventricular beats Chewing tobacco use Carpal tunnel syndrome on right Palpitations Essential hypertension Surgical History History of tonsillectomy Social History Smoking Status: Never smoker alcohol intake: current substance use type: does not use ROS Const Const: Positive for fatigue, weakness and headache(s); Negative for frequent falls Eyes Eyes: Negative for blurry vision ENT ENT: Positive for headache(s) and dizziness; Negative for Nosebleed/epistaxis Cardio Chest Pain: Yes (few days ago) Palpitations: No Edema: None Muscle aches with walking: None Resp Respiratory: Negative for SOB with activity, SOB at rest or SOB orthopnea SOB lying down GI GI: Negative nausea, vomiting, heartburn, bright, red blood in stools or black,tarry stools : Negative for hematuria Musc Musc: Negative for muscle aches/ myalgia Skin Skin: Negative non-healing lesions or rash Neuro Neuro: Positive for dizziness, lightheadedness, headache(s) and weakness; Negative for near syncope, syncope, frequent falls or blurry vision Endo Endo: Positive for fatigue Allergy Allergy/Immunology: Negative for rash [...] inspection and obese Neuro General: patient alert, pa (more content not included)... Normal [facility] Thyroid Stim Hormone (TSH)on 06-22-2025 TSH 3.220 uIU/mL Normal 0.300-4.200 [facility] Comment on above: Performed By: #### L 100.0100, L501.9520, L500.2500 #### [facility] [address], [address] Esophagus Dual Contraston Esophagus Dual Contrast [facility] Services [address] [place] [address] Esophagus Dual Contrast MR#: [id number] Acct: [id number] Name: BRIDGER PAREDES Rep #: [id number] : 1980 M 44 From: Levi Kaufman PCP: ARISTEO Chen Status: REG CLI Study: Esophagus Dual Contrast Date of Exam: 04/15/25 Exam# [id number] Ordering Dr: Dinora Torres DO EXAM: Single and double contrast esophagram. CLINICAL HISTORY: Feels as if medicines gets stuck at the epigastric level, symptoms for approximately 8 months. COMPARISON: None. TECHNIQUE: Single and double contrast esophagram. Fluoroscopy time: 113 seconds. Dose: 28.9 mGy FINDINGS: No hiatal hernia is seen. No area of persistent esophageal narrowing is noted. No mucosal abnormality is seen. A widely patent esophagogastric junction is noted. Easy passage of the 13 mm barium tablet into the stomach was seen. During the time of imaging, no gastroesophageal reflux was elicited. Limited imaging of the stomach and duodenum show no acute process. 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 RAD/Esophagus Dual Contrast IMPRESSION: No significant abnormality is identified. Reading Location: [place] [address] CC: ARISTEO Bennett; Dr. Dinora Torres DO Hotel Operation Manager: Signed [facility] Cardiology Visit Reporton Cardiology Visit Report [facility] [address] [place] [address] OFFICE VISIT Date of Service: 01/18/25 MR#: [id number] Acct: [id number] Name: BRIDGER PAREDES Rep #: [id number] : 1980 Provider: ARISTEO sweeney Age/Sex: 44/M Location: [facility] [place] Status: Signed HPI HPI History of Present Illness Details: This is a 44-year-old white male who presents today for outpatient cardiovascular follow-up based upon concerns of palpitations/cardiac ectopy and hypertension. He has mild-moderate DIANE. He denies chest, arm, jaw, or neck discomfort. He states intermittent palpitations that he describes as a skipping. He denies bilateral lower extremity edema, but acknowledges occasional right lower extremity edema that improves with rest/elevation. He denies claudication. He denies shortness of breath with activity, shortness of breath at rest, orthopnea, or PND. He denies chronic cough. He denies significant, sudden weight gain. He states dizziness and light headedness. He denies near-syncope or syncope. He denies blood in urine, blood in stool, or epistaxis. He denies fever with chills. He denies myalgia. He denies fatigue. His exercise level has remained stable. 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 Accompanied by: Self Is patient in pain?: No Allergies duloxetine (From Cymbalta) Allergy (Severe, Verified 01/18/25 14:48) foggy Penicillins Adverse Reaction (Severe, Verified 01/18/25 14:48) Diarrhea, Vomiting Medications ???Medication ???Instructions ???Recorded ???Confirmed ???Type multivitamin (Daily Multi-Vitamin 1 tab PO DAILY 11/07/23 01/18/25 History tablet) amlodipine 5 mg tablet 5 mg PO QDAY #90 tabs 06/16/2402/07 Rx metoprolol succinate 25 mg 25 mg PO QDAY #90 tabs 06/16/24 Rx tablet,extended release 24 hr (Toprol XL) omeprazole 20 mg capsule,delayed 20 mg PO Q OTHER DAY 01/18/2502/07 History release Ejection fraction %: 60 Have you fallen in the past year?: No PFSH Medical History (Updated 01/18/25 @ 15:10 by Zeke Pineda WEATHER TEACHER, WEATHER TEACHER-C) Premature supraventricular beats Chewing tobacco use Carpal tunnel syndrome on right Palpitations Essential hypertension Surgical History History of tonsillectomy Social History Smoking Status: Never smoker alcohol intake: current substance use type: does not use ROS Const Const: Negative for fatigue, weakness, headache(s) or weight gain ENT ENT: Positive for dizziness (with head over knees); Negative for headache(s), Nosebleed/epistaxis or balance problems Cardio Chest Pain: No Palpitations: Yes (chronic; improving) feels like its: skipping Edema: Right (occasional; improves with rest/elevation) Muscle aches with walking: None Resp Respiratory: Negative for SOB with activity, SOB at rest or SOB orthopnea SOB lying down GI GI: Positive for heartburn (medicated EOD); Negative nausea or vomiting : Negative for hematuria or frequent nighttime urination/ nocturia Musc Musc: Positive for muscle aches/ myalgia (chronic; unchanged; related to work per pt) and joint pain (chronic; unchanged; related to work per pt); Negative for muscle weakness or balance problems Skin Skin: Negative non-healing lesions or rash Neuro Neuro: Positive for dizziness (with head over knees) and lightheadedness (sporadic; weekly; sometimes worse with rest/palpitations); Negative for near syncope, syncope, headache(s) or weakness Endo Endo: Negative for fatigue [...] normal; Negative rub, gallop or murmur GI (more content not included)... Normal [facility] Acute Abdomen Inc Cheston Acute Abdomen Inc Chest [facility] Imaging Services [address] [place] [id number] Acute [facility]dom[facility] Chest MR#: [id number] Acct: [id number] Name: BRIDGER PAREDES Rep #: [id number] : 1980 M 43 From: Leilani Pardo MD PCP: Sheri Bennett NP-C Status: REG CLI Study: Acute Abdomen Inc Chest Date of Exam: 08/21/24 Exam# [id number] Ordering Dr: Sheri Bennett WEATHER TEACHER-C [id number] EXAM: XR ABDOMEN, 2 VIEWS AND XR CHEST, 1 VIEW CLINICAL INDICATION: EPIGASTRIC PRESSURE TECHNIQUE: Frontal view of the chest, frontal view of the abdomen/pelvis and upright or decubitus view of the abdomen. COMPARISON: Chest radiograph May 06, 2018. FINDINGS: CHEST: LUNGS AND PLEURAL SPACES: Unremarkable. No consolidation or edema. No pneumothorax. No effusion. HEART: Unremarkable. Cardiac silhouette not enlarged. MEDIASTINUM: Central airways and mediastinal contour are unremarkable. ABDOMEN: INTRAPERITONEAL SPACE: No free air. GASTROINTESTINAL TRACT: Mild gas and stool in the colon and mild stool in the rectum. No dilated small bowel. ORGANS: Unremarkable as visualized. No organomegaly. No abnormal calcifications. TUBES, LINES AND DEVICES: None. BONES/JOINTS: No acute findings. SOFT TISSUES: No acute findings. RAD/Acute Abdomen Inc Chest IMPRESSION: No acute findings in the chest, abdomen or pelvis. Mild-moderate stool in the colon. Electronically Signed: Leilani Pardo MD at 16:28 EST , CC: ARISTEO Bennett Hotel Operation Manager: Signed [facility] Absolute lymphocyte countOrd ered By: Zeke Pineda on 12-03-2023 Lymphocytes Auto (Unsp spec) [#/Vol] 1.78 10*3/uL 0.83-4.51 [facility] Automated lymphocyte count a s percentage of total leukocytesOrdered By: Zeke Pineda on 12-03-2023 Lymphocytes/100 WBC Auto (Unsp spec) 25.7 % 19-41 [facility] Basophil percentageOrdered B y: Zeke Pineda on 12-03-2023 Basophils/100 WBC (Bld) 0.6 % 0-1 [facility] Bilirubin [Mass/Vol] 0.50 mg/dL 0.20-1.00 [facility] Comment on above: For patients on eltr ombopag therapy, use of Dimension [place] TBIL is not recommended. Chloride [Moles/Vol] 107 mmol/L 98-107 [facility] Eosinophils/100 WBC (Bld) 2.2 % 0-5 [facility] Glucose [Mass/Vol] 97 mg/dL 74-106 [facility] Hemoglobin (Bld) [Mass/Vol] 15.7 g/dL 13.0-16.5 [facility] Monocytes/100 WBC (Bld) 6.1 % 0-10 [facility] Neutrophils (Bld) [#/Vol] 4.5 10*3/uL 2.0-7.7 [facility] Neutrophils/100 WBC (Bld) 64.8 % 47-70 [facility] Potassium [Moles/Vol] 3.9 mmol/L 3.5-5.1 [facility] Protein [Mass/Vol] 7.1 g/dL 6.4-8.2 [facility] Sodium [Moles/Vol] 140 mmol/L 136-145 [facility] WBC (Bld) [#/Vol] 6.9 10*3/uL 4.4-11.0 [facility] Determination of erythrocyte mean corpuscular volume (MCV)Ordered By: Zeke Pineda on 12-03-2023 MCV (RBC) [Entitic vol] 88.5 fL 80-94 [facility] Erythrocyte distribution wid th ratioOrdered By: Zeke Pineda on 12-03-2023 Erythrocyte distribution width (RBC) [Ratio] 11.9 % 11.6-14.6 [facility] Erythrocyte distribution wid th standard deviationOrdered By: Zeke Pineda on 12-03-2023 Erythrocyte distribution width (RBC) [Entitic vol] 38.0 fL 35.1-43.9 [facility] Hematocrit Auto (Bld) [Volum e fraction]Ordered By: Zeke Pineda on 12-03-2023 Hematocrit (Bld) [Volume fraction] 46.1 % 40-54 [facility] Immature granulocytes/100 WB C Auto (Bld)Ordered By: Zeke Pineda on 12-03-2023 Immature granulocytes/100 WBC (Bld) 0.600 % 0.0-0.9 [facility] Comment on above: IG% - Immature Granu locytes (promyelocytes, myelocytes and metamyelocytes) > 1% indicates that a LEFT SHIFT is Present. Laboratory - Chemistry and C hemistry - challengeOrdered By: Zeke Pineda on 12-03-2023 Albumin/Globulin [Mass ratio] 1.4 {ratio} 0.9-2.4 [facility] ALP [Catalytic activity/Vol] 79 U/L 45-117 [facility] ALT [Catalytic activity/Vol] 20 U/L 16-61 [facility] CO2 [Moles/Vol] 25.0 mmol/L 21.0-32.0 [facility] Globulin (S) [Mass/Vol] 2.9 g/dL 2.2-4.2 [facility] Magnesium [Mass/Vol] 2.2 mg/dL 1.6-2.6 [facility] Urea nitrogen/Creatinine [Mass ratio] 20.0 mg/mg 10-20 [facility] - Hematology and Cell countsOrdered By: Zeke Pineda on 12-03-2023 MCH (RBC) [Entitic mass] 30.1 pg 27.0-32.0 [facility] MCHC (RBC) [Mass/Vol] 34.1 g/dL 32-36 [facility] Nucleated RBC/100 WBC (Bld) [Ratio] 0 % 0-5 [facility] Platelet mean volume (Bld) [Entitic vol] 10.6 fL 6.2-12.0 [facility] Platelets (Bld) [#/Vol] 202 10*3/uL 150-450 [facility] No Panel InformationOrdered By: Zeke Pineda on 12-03-2023 Estimated GFR (MDRD) Amer 126 mL/min >60 [facility] Comment on above: GFR Calc Estimated GFR (MDRD) Non-Af Amer 104 mL/min >60 [facility] Comment on above: Non- GFR Calc RBC Auto (Bld) [#/Vol]Ordere d By: Zeke Pineda on 12-03-2023 RBC (Bld) [#/Vol] 5.21 10*6/uL 4.6-6.2 [facility] Serum or plasma calcium sam urement (mass/volume)Ordered By: Zeke Pineda on 12-03-2023 Calcium [Mass/Vol] 9.2 mg/dL 8.5-10.1 [facility] Serum or plasma creatinine m easurement (mass/volume)Ordered By: Zeke Pineda on 12-03-2023 Creatinine [Mass/Vol] 0.85 mg/dL 0.70-1.30 [facility] Comment on above: The validity of the calculated GFR & GFRAA in patients over 70 years has not been determined. Clinical correlation is essential. Serum or plasma thyroid stim ulating hormone (TSH) measurement (units/volume)Ordered By: Zeke Pineda on 12-03-2023 TSH Qn 2.11 uIU/mL 0.358-3.74 [facility] Serum or plasma urea nitroge n measurement (mass/volume)Ordered By: Zeke Pineda on 12-03-2023 Urea nitrogen [Mass/Vol] 17 mg/dL 7-18 [facility] Thin prep Papanicolaou smear with manual screeningOrdered By: Zeke Pineda on 12-03-2023 Thin prep Papanicolaou smear with manual screening 4.2 g/dL 3.2-5.0 [facility] Thin prep Papanicolaou smear with manual screening 25 U/L 15-37 [facility] Thin prep Papanicolaou smear with manual screening 8 5-15 [facility] Thin prep Papanicolaou smear with manual screening 0.93 ng/dL 0.76-1.46 [facility] Absolute lymphocyte counton 04-25-2023 Lymphocytes Auto (Unsp spec) [#/Vol] 1.86 10*3/uL 0.83-4.51 [facility] Basophil percentageon 2022 Basophils/100 WBC (Bld) 0.4 % 0-1 [facility] Eosinophils/100 WBC (Bld) 0.9 % 0-5 [facility] Neutrophils (Bld) [#/Vol] 4.6 10*3/uL 2.0-7.7 [facility] Neutrophils/100 WBC (Bld) 65.7 % 47-70 [facility] WBC (Bld) [#/Vol] 7.0 10*3/uL 4.4-11.0 [facility] Blood erythrocytes count (nu mber/volume)on 04-25-2023 RBC (Bld) [#/Vol] 5.61 10*6/uL 4.6-6.2 [facility] Blood hemoglobin measurement (mass/volume)on 04-25-2023 Hemoglobin (Bld) [Mass/Vol] 17.2 g/dL 13.0-16.5 [facility] Blood lymphocytes/100 leukoc yteson 04-25-2023 Lymphocytes/100 WBC (Bld) 26.5 % 19-41 [facility] Blood monocytes/100 leukocyt eson 04-25-2023 Monocytes/100 WBC (Bld) 5.8 % 0-10 [facility] Blood platelet mean volumeon 04-25-2023 Platelet mean volume (Bld) [Entitic vol] 10.7 fL 6.2-12.0 [facility] Determination of erythrocyte mean corpuscular volume (MCV)on 04-25-2023 MCV (RBC) [Entitic vol] 89.5 fL 80-94 [facility] Erythrocyte sedimentation ra christine 04-25-2023 ESR (Bld) [Velocity] 2 mm/h 0-20 [facility] HIV 1 and HIV-2 antibody ass ay with HIV-1 p24 antigen detectionon 04-25-2023 HIV 1+2 Ab+HIV1 p24 Ag IA Ql Non-Reactive Nonreactive [facility] Hematocrit Auto (Bld) [Volum e fraction]on 04-25-2023 Hematocrit (Bld) [Volume fraction] 50.2 % 40-54 [facility] - Hematology and Cell countson 04-25-2023 Erythrocyte distribution width (RBC) [Entitic vol] 39.5 fL 35.1-43.9 [facility] Erythrocyte distribution width (RBC) [Ratio] 12.1 % 11.6-14.6 [facility] Immature granulocytes/100 WBC (Bld) 0.700 % 0.0-0.9 [facility] Comment on above: IG% - Immature Granu locytes (promyelocytes, myelocytes and metamyelocytes) > 1% indicates that a LEFT SHIFT is Present. MCH (RBC) [Entitic mass] 30.7 pg 27.0-32.0 [facility] Nucleated RBC/100 WBC (Bld) [Ratio] 0 % 0-5 [facility] MCHC Auto (RBC) [Mass/Vol]on 04-25-2023 MCHC (RBC) [Mass/Vol] 34.3 g/dL 32-36 [facility] No Panel Informationon 04-25 Miscellaneous Test See comment [facility] Comment on above: TEST RESULT LIMITSLy sozyme,Serum 4.6 ug/mL 3.4-7.6 TESTING PERFORMED AT [facility]. ORIGINAL REPORT ON FILE IN LAB CONTAINS ADDITIONAL TEST SITE INFORMATION. ____ Platelets bldon 04-25-2023 Platelets (Bld) [#/Vol] 213 10*3/uL 150-450 [facility] Serum Treponema species anti body detectionon 04-25-2023 Treponema sp Ab Ql (S) Non-Reactive [facility] Serum or plasma C reactive p rotein measurement (mass/volume)on 04-25-2023 CRP [Mass/Vol] mg/L 0.0-3.0 [facility] Comment on above: C-Reactive Protein ( CRP) provides useful information for thediagnosis, therapy and monitoring of inflammatory processesand associated diseases. For the evaluation of Relative Riskfor Cardiovascular Disease, a High Sensitivity CRP (HSCRP)should be ordered. Whole blood hemoglobin A1c/t otal hemoglobin ratio (mass fraction)on 04-25-2023 HbA1c (Bld) [Mass fraction] 5.0 % 3.8-5.6 [facility] Comment on above: Normal < 5.7 % Predi abetic 5.7 - 6.4 % Diabetic >or= 6.5 % Please note range changes. Absolute lymphocyte countOrd ered By: Sheriginette Bennett on 01-26-2023 Lymphocytes Auto (Unsp spec) [#/Vol] 1.81 10*3/uL 0.83-4.51 [facility] Basophil percentageOrdered B y: Sheri Bennett on 01-26-2023 Basophils/100 WBC (Bld) 0.6 % 0-1 [facility] Bilirubin [Mass/Vol] 0.80 mg/dL 0.20-1.00 [facility] Comment on above: For patients on eltr ombopag therapy, use of Dimension [place] TBIL is not recommended. Chloride [Moles/Vol] 108 mmol/L 98-107 [facility] Cholesterol [Mass/Vol] 183 mg/dL <200 [facility] Comment on above: <200 mg/dL Desirable 200-240 mg/dL Borderline >240 mg/dL High Risk Eosinophils/100 WBC (Bld) 2.6 % 0-5 [facility] Glucose [Mass/Vol] 84 mg/dL 74-106 [facility] Neutrophils (Bld) [#/Vol] 2.7 10*3/uL 2.0-7.7 [facility] Neutrophils/100 WBC (Bld) 52.7 % 47-70 [facility] Potassium [Moles/Vol] 4.3 mmol/L 3.5-5.1 [facility] Protein [Mass/Vol] 7.3 g/dL 6.4-8.2 [facility] Sodium [Moles/Vol] 142 mmol/L 136-145 [facility] Triglyceride [Mass/Vol] 220 mg/dL <199 [facility] Comment on above: The drugs N-Acetylcy steine and Metamizole may falsely depress this assay.Serum Triglycerides Reference Interval Normal <150 mg/dL Borderline high 150 - 199 mg/dL High 200 - 499 mg/dL Very High > or = 500 mg/dL WBC (Bld) [#/Vol] 5.1 10*3/uL 4.4-11.0 [facility] Blood erythrocytes count (nu mber/volume)Ordered By: Sheri Bennett on 01-26-2023 RBC (Bld) [#/Vol] 5.55 10*6/uL 4.6-6.2 [facility] Blood hemoglobin measurement (mass/volume)Ordered By: Sheri Bennett on 01-26-2023 Hemoglobin (Bld) [Mass/Vol] 17.1 g/dL 13.0-16.5 [facility] Blood lymphocytes/100 leukoc ytesOrdered By: Sheri Bennett on 01-26-2023 Lymphocytes/100 WBC (Bld) 35.8 % 19-41 [facility] Blood monocytes/100 leukocyt esOrdered By: Sheri Bennett on 01-26-2023 Monocytes/100 WBC (Bld) 7.7 % 0-10 [facility] Blood platelet mean volumeOr dered By: Sheri Bennett on 01-26-2023 Platelet mean volume (Bld) [Entitic vol] 10.3 fL 6.2-12.0 [facility] Determination of erythrocyte mean corpuscular volume (MCV)Ordered By: Sheri Bennett on 01-26-2023 MCV (RBC) [Entitic vol] 89.4 fL 80-94 [facility] Hematocrit Auto (Bld) [Volum e fraction]Ordered By: Sheri Bennett on 01-26-2023 Hematocrit (Bld) [Volume fraction] 49.6 % 40-54 [facility] - Chemistry and C hemistry - challengeOrdered By: Sheri Bennett on 01-26-2023 ALP [Catalytic activity/Vol] 84 U/L 45-117 [facility] ALT [Catalytic activity/Vol] 27 U/L 16-61 [facility] CO2 [Moles/Vol] 27.0 mmol/L 21.0-32.0 [facility] Globulin (S) [Mass/Vol] 3.2 g/dL 2.2-4.2 [facility] Urea nitrogen/Creatinine [Mass ratio] 20.3 mg/mg 10-20 [facility] - Hematology and Cell countsOrdered By: Sheri eBnnett on 01-26-2023 Erythrocyte distribution width (RBC) [Entitic vol] 39.0 fL 35.1-43.9 [facility] Erythrocyte distribution width (RBC) [Ratio] 11.9 % 11.6-14.6 [facility] Immature granulocytes/100 WBC (Bld) 0.600 % 0.0-0.9 [facility] Comment on above: IG% - Immature Granu locytes (promyelocytes, myelocytes and metamyelocytes) > 1% indicates that a LEFT SHIFT is Present. MCH (RBC) [Entitic mass] 30.8 pg 27.0-32.0 [facility] Nucleated RBC/100 WBC (Bld) [Ratio] 0 % 0-5 [facility] MCHC Auto (RBC) [Mass/Vol]Or dered By: Sheri Bennett on 01-26-2023 MCHC (RBC) [Mass/Vol] 34.5 g/dL 32-36 [facility] No Panel InformationOrdered By: Sheri Bennett on 01-26-2023 Estimated GFR (MDRD) Amer 148 mL/min >60 [facility] Comment on above: GFR Calc Estimated GFR (MDRD) Non-Af Amer 122 mL/min >60 [facility] Comment on above: Non- GFR Calc Vitamin D 25-Hydroxy 35.1 ng/mL [facility] Comment on above: Vitamin D 25(OH) Sta tus Range Deficiency <20 ng/mL (50nmol/L) Insufficiency 20 - 30 ng/mL (50 - 75 nmol/L) Sufficiency 30 - 100 ng/mL (75 - 250 nmol/L) Toxicity >100 ng/mL (>250 nmol/L) Platelets bldOrdered By: Frank Bennett on 01-26-2023 Platelets (Bld) [#/Vol] 205 10*3/uL 150-450 [facility] Serum or plasma albumin sam urement (mass/volume)Ordered By: Sheri Bennett on 01-26-2023 Albumin [Mass/Vol] 4.1 g/dL 3.2-5.0 [facility] Serum or plasma albumin/glob ulin mass ratioOrdered By: Sheri Bennett on 01-26-2023 Albumin/Globulin [Mass ratio] 1.3 {ratio} 0.9-2.4 [facility] Serum or plasma calcium sam urement (mass/volume)Ordered By: Sheri Bennett on 01-26-2023 Calcium [Mass/Vol] 9.0 mg/dL 8.5-10.1 [facility] Serum or plasma cholesterol in HDL measurement (mass/volume)Ordered By: Sheri Bennett on 01-26-2023 Cholesterol in HDL [Mass/Vol] 35 mg/dL >40 [facility] Comment on above: The drugs N-Acetylcy steine and Metamizole may falsely depress this assay. Reference Range HDL <40 mg/dL Low HDL Cholesterol HDL >or= 60 mg/dL High HDL Cholesterol Serum or plasma cholesterol in VLDL measurement (mass/volume)Ordered By: Sheri Bennett on 01-26-2023 Cholesterol in VLDL [Mass/Vol] 44 mg/dL 5-40 [facility] Serum or plasma creatinine m easurement (mass/volume)Ordered By: Sheri Bennett on 01-26-2023 Creatinine [Mass/Vol] 0.74 mg/dL 0.70-1.30 [facility] Comment on above: The validity of the calculated GFR & GFRAA in patients over 70 years has not been determined. Clinical correlation is essential. Serum or plasma low density lipoprotein (LDL) cholesterol measurement (mass/volume)Ordered By: Sheri Bennett on 01-26-2023 Cholesterol in LDL [Mass/Vol] 104 mg/dL 0-130 [facility] Serum or plasma urea nitroge n measurement (mass/volume)Ordered By: Sheri Bennett on 01-26-2023 Urea nitrogen [Mass/Vol] 15 mg/dL 7-18 [facility] Thin prep Papanicolaou smear with manual screeningOrdered By: Sheri Bennett on 01-26-2023 Thin prep Papanicolaou smear with manual screening 28 U/L 15-37 [facility] Thin prep Papanicolaou smear with manual screening 7 5-15 [facility] HEPATIC FUNCTION PANEL (8007 6)Ordered By: Middle School Teacher on 05-25-2019 Albumin [Mass/Vol] 4.3 g/dL Normal 3.5-5.5 [facility] Internal Medicine Work Phone: Comment on above: SEpt; PATIENT NOT FA STINGPERFORMED BY: ANDREA [facility] Pqqqty[address] RingpayDuFormerly [facility] [id number] ALP [Catalytic activity/Vol] 85 [iU]/L Normal 39-117 [facility] Work Phone: Comment on above: SEpt; PATIENT NOT FA STINGPERFORMED BY: CB [facility] Bahfql3733 [address] RoadDublin [place] [id number] ALP [Catalytic activity/Vol] 85 U/L Normal 39-117 [facility]; [facility] Work Phone: Comment on above: SEpt; PATIENT NOT FA STINGPERFORMED BY: CB [facility] Djigxp1580 [address] RoadDublin [place] [id number] ALT [Catalytic activity/Vol] 22 [iU]/L Normal 0-44 [facility] Work Phone: Comment on above: SEpt; PATIENT NOT FA STINGPERFORMED BY: CB [facility] Ooowha5391 [address] RoadDublin [place] [id number] ALT [Catalytic activity/Vol] 22 U/L Normal 0-44 [facility]; [facility] Work Phone: Comment on above: SEpt; PATIENT NOT FA STINGPERFORMED BY: CB [facility] Gydkjo[address] [facility] [place] [id number] AST [Catalytic activity/Vol] 35 [iU]/L Normal 0-40 [facility] Work Phone: Comment on above: The specimen was lip emic. The lipemia was cleared byultracentrifugation before testing. However HDL, direct LDL,cholesterol and triglyceride (if ordered) were performed prior toultracentrifugation. SEpt; PATIENT NOT FA STINGPERFORMED BY: [facility] Rksiaf[address] [facility] [place] [id number] AST [Catalytic activity/Vol] 35 U/L Normal 0-40 [facility]; [facility] Internal Medicine Work Phone: Comment on above: The specimen was lip emic. The lipemia was cleared byultracentrifugation before testing. However HDL, direct LDL,cholesterol and triglyceride (if ordered) were performed prior toultracentrifugation. SEpt; PATIENT NOT FA STINGPERFORMED BY: [facility] Yqjpgl[address] [facility] [id number] Bilirubin [Mass/Vol] 0.4 mg/dL Normal 0.0-1.2 [facility] Internal Medicine Work Phone: Comment on above: Sample is lipemic. T his may cause spurious increases in TBili, DBili,AST, ALT, and UIBC (if ordered). Clinical correlation indicated. SEpt; PATIENT NOT FA STINGPERFORMED BY: [facility] Ywttzm8587 [facility] [id number] Bilirubin.direct [Mass/Vol] 0.26 mg/dL Normal 0.00-0.40 [facility] Internal Medicine Work Phone: Comment on above: SEpt; PATIENT NOT FA STINGPERFORMED BY: [facility] Sloihl[address] [facility] [place] [id number] Protein [Mass/Vol] 6.8 g/dL Normal 6.0-8.5 [facility] Internal Medicine Work Phone: Comment on above: SEpt; PATIENT NOT FA STINGPERFORMED BY: [facility] Qluyug8321 [address] RoadDublin [place] [id number] HEPATIC FUNCTION PANEL (8007 6)Ordered By: Middle School Teacher on 04-20-2019 Albumin [Mass/Vol] 4.6 g/dL Normal 3.5-5.5 [facility] Internal Medicine Work Phone: Comment on above: Apr 2019; PATIENT NO T FASTINGPERFORMED BY: CB [facility] Zqszev1626 [address] RoadDublin [place] [id number] ALP [Catalytic activity/Vol] 73 [iU]/L Normal 39-117 [facility] Work Phone: Comment on above: Apr 2019; PATIENT NO T FASTINGPERFORMED BY: CB [facility] Oyidcl6165 [address] RoadDublin [place] [id number] ALP [Catalytic activity/Vol] 73 U/L Normal 39-117 [facility]; [facility] Work Phone: Comment on above: Apr 2019; PATIENT NO T FASTINGPERFORMED BY: CB [facility] Znwmlr8880 [address] RoadDublin [place] [id number] ALT [Catalytic activity/Vol] 17 [iU]/L Normal 0-44 [facility] Work Phone: Comment on above: Apr 2019; PATIENT NO T FASTINGPERFORMED BY: CB [facility] Fgojei5642 [address] RoadDublin [place] [id number] ALT [Catalytic activity/Vol] 17 U/L Normal 0-44 [facility]; [facility] Work Phone: Comment on above: Apr 2019; PATIENT NO T FASTINGPERFORMED BY: CB [facility] Yxzpqp9821 [address] RoadDublin [place] [id number] AST [Catalytic activity/Vol] 27 [iU]/L Normal 0-40 [facility] Work Phone: Comment on above: Apr 2019; PATIENT NO T FASTINGPERFORMED BY: CB [facility] Ddwrkl9056 [address] RoadDublin [place] [id number] AST [Catalytic activity/Vol] 27 U/L Normal 0-40 [facility]; [facility] Work Phone: Comment on above: Apr 2019; PATIENT NO T FASTINGPERFORMED BY: CB [facility] Lvkwiv2739 [address] RoadDublin [place] [id number] Bilirubin [Mass/Vol] 0.5 mg/dL Normal 0.0-1.2 [facility] Internal Medicine Work Phone: Comment on above: Apr 2019; PATIENT NO T FASTINGPERFORMED BY: CB [facility] Ysucuz1028 [address] RoadDublin [place] [id number] Bilirubin.direct [Mass/Vol] 0.12 mg/dL Normal 0.00-0.40 [facility] Internal Medicine Work Phone: Comment on above: Apr 2019; PATIENT NO T FASTINGPERFORMED BY: CB [facility] Kdtwzk4806 [address] RoadDublin [place] [id number] Protein [Mass/Vol] 7.0 g/dL Normal 6.0-8.5 [facility] Internal Medicine Work Phone: Comment on above: Apr 2019; PATIENT NO T FASTINGPERFORMED BY: CB [facility] Cxamcp7577 [address] RoadDublin [place] [id number] HEPATIC FUNCTION PANEL (8007 6)Ordered By: Middle School Teacher on 03-24-2019 Albumin [Mass/Vol] 4.7 g/dL Normal 3.5-5.5 [facility] Internal Medicine Work Phone: Comment on above: March 2019; PATIENT N OT FASTINGPERFORMED BY: CB [facility] Qwofvn7545 [address] RoadDublin [place] [id number] ALP [Catalytic activity/Vol] 75 [iU]/L Normal 39-117 [facility] Work Phone: Comment on above: March 2019; PATIENT N OT FASTINGPERFORMED BY: CB [facility] Uubxkc5918 [address] RoadDublin [place] [id number] ALP [Catalytic activity/Vol] 75 U/L Normal 39-117 [facility]; [facility] Work Phone: Comment on above: March 2019; PATIENT N OT FASTINGPERFORMED BY: CB [facility] Gkjjcb7387 [address] RoadDublin [place] [id number] ALT [Catalytic activity/Vol] 12 [iU]/L Normal 0-44 [facility] Work Phone: Comment on above: March 2019; PATIENT N OT FASTINGPERFORMED BY: CB [facility] Irzewj8056 [address] RoadDublin [place] [id number] ALT [Catalytic activity/Vol] 12 U/L Normal 0-44 [facility]; [facility] Work Phone: Comment on above: March 2019; PATIENT N OT FASTINGPERFORMED BY: CB [facility] Zwhddk7624 [address] RoadDublin [place] [id number] AST [Catalytic activity/Vol] 19 [iU]/L Normal 0-40 [facility] Work Phone: Comment on above: March 2019; PATIENT N OT FASTINGPERFORMED BY: CB [facility] Buqbax9311 [address] RoadDublin [place] [id number] AST [Catalytic activity/Vol] 19 U/L Normal 0-40 [facility]; [facility] Work Phone: Comment on above: March 2019; PATIENT N OT FASTINGPERFORMED BY: CB [facility] Dbybdo7011 [address]Dublin [place] [id number] Bilirubin [Mass/Vol] 0.4 mg/dL Normal 0.0-1.2 [facility] Internal Medicine Work Phone: Comment on above: March 2019; PATIENT N OT FASTINGPERFORMED BY: CB [facility] Chwibx5063 [address] RoadDublin [place] [id number] Bilirubin.direct [Mass/Vol] 0.12 mg/dL Normal 0.00-0.40 [facility] Internal Medicine Work Phone: Comment on above: March 2019; PATIENT N OT FASTINGPERFORMED BY: CB [facility] Vdijsb8822 [address] RoadDublin [place] [id number] Protein [Mass/Vol] 7.2 g/dL Normal 6.0-8.5 [facility] Internal Medicine Work Phone: Comment on above: March 2019; PATIENT N OT FASTINGPERFORMED BY: CB [facility] Jcwfep7053 [address] RoadDublin [place] [id number] HEPATIC FUNCTION PANEL (8007 6)Ordered By: Middle School Teacher on 02-17-2019 Albumin [Mass/Vol] 5.1 g/dL Normal 3.5-5.5 [facility] Internal Medicine Work Phone: Comment on above: today; PATIENT NOT F ASTINGPERFORMED BY: CB [facility] Drtqok0784 [address] RoadDublin [place] [id number] ALP [Catalytic activity/Vol] 78 [iU]/L Normal 39-117 [facility] Work Phone: Comment on above: today; PATIENT NOT F ASTINGPERFORMED BY: CB [facility] Chedmd6591 [address]Dublin [place] [id number] ALP [Catalytic activity/Vol] 78 U/L Normal 39-117 [facility]; [facility] Work Phone: Comment on above: today; PATIENT NOT F ASTINGPERFORMED BY: CB [facility] Vowbhn3901 [address] RoadDublin [place] [id number] ALT [Catalytic activity/Vol] 15 [iU]/L Normal 0-44 [facility] Work Phone: Comment on above: today; PATIENT NOT F ASTINGPERFORMED BY: CB [facility] Vmzzfc0754 [address] RoadDublin [place] [id number] ALT [Catalytic activity/Vol] 15 U/L Normal 0-44 [facility]; [facility] Work Phone: Comment on above: today; PATIENT NOT F ASTINGPERFORMED BY: CB [facility] Bbxpsm8254 [address] RoadDublin [place] [id number] AST [Catalytic activity/Vol] 24 [iU]/L Normal 0-40 [facility] Work Phone: Comment on above: today; PATIENT NOT F ASTINGPERFORMED BY: CB [facility] Pvvqka9030 [address] RoadDublin [place] [id number] AST [Catalytic activity/Vol] 24 U/L Normal 0-40 [facility]; [facility] Work Phone: Comment on above: today; PATIENT NOT F ASTINGPERFORMED BY: CB [facility] Xgrqho4738 [address] RoadDublin [place] [id number] Bilirubin [Mass/Vol] 0.6 mg/dL Normal 0.0-1.2 Comp [facility] Internal Medicine Work Phone: Comment on above: today; PATIENT NOT F ASTINGPERFORMED BY: CB [facility] Cafwhk2795 [address] RoadDublin [place] [id number] Bilirubin.direct [Mass/Vol] 0.15 mg/dL Normal 0.00-0.40 [facility] Work Phone: Comment on above: today; PATIENT NOT F ASTINGPERFORMED BY: CB [facility] Lkcfmj2133 [address]Dublin [place] [id number] Protein [Mass/Vol] 7.3 g/dL Normal 6.0-8.5 [facility] Work Phone: Comment on above: today; PATIENT NOT F ASTINGPERFORMED BY: CB [facility] Osljzp3508 [address] RoadDublin [place] [id number] Blood Glucose , Office (8296 2)Ordered By: Sultana Groves on 05-06-2018 Glucose Glucometer molar conc (dC) 111 1 Normal [facility] Work Phone: CALCIFEDIOL ([id number])Ordered B y: Middle School Teacher on 05-06-2018 25-Hydroxyvitamin D2+25-Hydroxyvitamin D3 mass conc 28.2 ng/mL Abnormal 30.0-100.0 [facility] Work Phone: Comment on above: Vitamin D deficiency has been defined by the [place] of[place]icine and an Endocrine Society practice guideline as alevel of serum 25-OH vitamin D less than 20 ng/mL (1,2).The Endocrine Society went on to further define vitamin Dinsufficiency as a level between 21 and 29 ng/mL (2).1. IOM ([place] of Medicine). 2010. Dietary reference intakes for calcium and D. [place]: The National Academies Press.2. Melani MF, Pippa GORDON, Hannah TORRES, et al. Evaluation, treatment, and prevention of vitamin D deficiency: an Endocrine Society clinical practice guideline. JCEM. 2010; 96(7):1911-30. PATIENT NOT FASTINGP ERFORMED BY: CB [facility] Fgdyym2474 [address] RoadDublin [place] [id number] CBC, Platelets & Auto Diff ( [id number])Ordered By: Middle School Teacher on 05-06-2018 Basophils #/vol (Bld) 0.0 {x10E3/uL} Normal 0.0-0.2 [facility] Work Phone: Comment on above: PATIENT NOT FASTINGP ERFORMED BY: [place] [id number] [facility] [id number] Basophils (Bld) [#/Vol] 0.0 10*3/uL Normal 0.0-0.2 [facility]; [facility] Work Phone: Comment on above: PATIENT NOT FASTINGP ERFORMED BY: AlonsoC[facility] Lawn Pbamnx5339 [facility] [id number] Basophils/100 WBC (Bld) 0 % Normal [facility] Work Phone: Comment on above: PATIENT NOT FASTINGP ERFORMED BY: AlonsoMichelle V[place] [id number] [facility] [id number] Eosinophils #/vol (Bld) 0.1 {x10E3/uL} Normal 0.0-0.4 [facility] Work Phone: Comment on above: PATIENT NOT FASTINGP ERFORMED BY: SeAustin V[place] [id number] [facility] [id number] Eosinophils (Bld) [#/Vol] 0.1 10*3/uL Normal 0.0-0.4 [facility]; [facility] Work Phone: Comment on above: PATIENT NOT FASTINGP ERFORMED BY: [facility]6370 [facility] [id number] Eosinophils/100 WBC (Bld) 2 % Normal [facility] Work Phone: Comment on above: PATIENT NOT FASTINGP ERFORMED BY: [place] [id number] [facility] [id number] Erythrocyte distribution width Ratio (RBC) 13.2 % Normal 12.3-15.4 [facility] Work Phone: Comment on above: PATIENT NOT FASTINGP ERFORMED BY: ANDREA Sullivanlin[address] [facility]in [place] [id number] Hematocrit Volume Fraction (Bld) 48.6 % Normal 37.5-51.0 [facility] Work Phone: Comment on above: PATIENT NOT FASTINGP ERFORMED BY: ANDREA Saez Yazivl[address] [facility] [id number] Hemoglobin mass conc (Bld) 16.5 g/dL Normal 13.0-17.7 [facility] Work Phone: Comment on above: PATIENT NOT FASTINGP ERFORMED BY: AlonsoCox Wal[facility] Lawn Wmygce9[address] [facility] [id number] Immature granulocytes #/vol (Bld) 0.0 {x10E3/uL} Normal 0.0-0.1 [facility] Work Phone: Comment on above: PATIENT NOT FASTINGP ERFORMED BY: Se Mgfvov8869 [address] [facility] [id number] Immature granulocytes (Bld) [#/Vol] 0.0 10*3/uL Normal 0.0-0.1 [facility]; [facility] Work Phone: Comment on above: PATIENT NOT FASTINGP ERFORMED BY: ANDREA Sullivanlin[address] [facility]in [place] [id number] Immature granulocytes/100 WBC (Bld) 0 % Normal [facility] Work Phone: Comment on above: PATIENT NOT FASTINGP ERFORMED BY: SeMorristown Medical CenterMuostr5277 [address] [facility] [id number] Lymphocytes #/vol (Bld) 1.5 {x10E3/uL} Normal 0.7-3.1 [facility] Work Phone: Comment on above: PATIENT NOT FASTINGP ERFORMED BY: SeMorristown Medical CenterWlitjs[address] [facility]in [place] [id number] Lymphocytes (Bld) [#/Vol] 1.5 10*3/uL Normal 0.7-3.1 [facility]; [facility] Work Phone: Comment on above: PATIENT NOT FASTINGP ERFORMED BY: ANDREA [facility] Rkprlw8840 [address] RoadDuin [place] [id number] Lymphocytes/100 WBC (Bld) 28 % Normal [facility] Work Phone: Comment on above: PATIENT NOT FASTINGP ERFORMED BY: ANDREA [facility] Foxocs35[address] [facility] [id number] MCH Entitic mass (RBC) 30.9 pg Normal 26.6-33.0 [facility] Work Phone: Comment on above: PATIENT NOT FASTINGP ERFORMED BY: ANDREA [facility] Dftzyb3709 [address] RoadUnc Hospitals Hills[facility] Campusin [place] [id number] MCHC mass conc (RBC) 34.0 g/dL Normal 31.5-35.7 Comp [facility]erens[facility] Internal Medicine Work Phone: Comment on above: PATIENT NOT FASTINGP ERFORMED BY: ANDREA [facility] Repfjj6688 [address] [facility] [id number] MCV Entitic volume (RBC) 91 fL Normal 79-97 [facility] Work Phone: Comment on above: PATIENT NOT FASTINGP ERFORMED BY: ANDREA [facility] Rlyebj0041 [address] [facility] [id number] Monocytes #/vol (Bld) 0.5 {x10E3/uL} Normal 0.1-0.9 [facility] Work Phone: Comment on above: PATIENT NOT FASTINGP ERFORMED BY: ANDREA [facility] Zufipy0645 [address] RoadUnc Hospitals Hillsborough Campusin [place] [id number] Monocytes (Bld) [#/Vol] 0.5 10*3/uL Normal 0.1-0.9 [facility]; [facility] Work Phone: Comment on above: PATIENT NOT FASTINGP ERFORMED BY: ANDREA [facility] Vmtnte[address] [facility] HospitalDuin [place] [id number] Monocytes/100 WBC (Bld) 9 % Normal [facility] Work Phone: Comment on above: PATIENT NOT FASTINGP ERFORMED BY: ANDREA [facility] Npxynx[address] [facility] [place] [id number] Neutrophils #/vol (Bld) 3.1 {x10E3/uL} Normal 1.4-7.0 [facility] Work Phone: Comment on above: PATIENT NOT FASTINGP ERFORMED BY: ANDREA [facility] Aacusr9591 [address] RoadDublin [place] [id number] Neutrophils (Bld) [#/Vol] 3.1 10*3/uL Normal 1.4-7.0 [facility]; [facility] Work Phone: Comment on above: PATIENT NOT FASTINGP ERFORMED BY: CB [facility] Xvypti8400 [address] RoadDublin [place] [id number] Neutrophils/100 WBC (Bld) 61 % Normal [facility] Work Phone: Comment on above: PATIENT NOT FASTINGP ERFORMED BY: ANDREA AlonsoCojeison AshfordIrqjpv4655 [address] RoadDublin [place] [id number] Platelets #/vol (Bld) 186 {x10E3/uL} Normal 150-379 [facility] Work Phone: Comment on above: PATIENT NOT FASTINGP ERFORMED BY: CB [facility] Zppwwd5997 [address] RoadDublin [place] [id number] Platelets (Bld) [#/Vol] 186 10*3/uL Normal 150-379 [facility]; [facility] Work Phone: Comment on above: PATIENT NOT FASTINGP ERFORMED BY: CB [facility] Gythsf0724 [address] RoadDublin [place] [id number] RBC #/vol (Bld) 5.34 {x10E6/uL} Normal 4.14-5.80 Comp [facility] Internal Medicine Work Phone: Comment on above: PATIENT NOT FASTINGP ERFORMED BY: CB [facility] Apfkxw3640 [address] RoadDublin [place] [id number] RBC (Bld) [#/Vol] 5.34 10*6/uL Normal 4.14-5.80 Compr ehensive [facility] Medicine; [facility] Work Phone: Comment on above: PATIENT NOT FASTINGP ERFORMED BY: ANDREA [facility] Xrqxiw1020 [address] RoadDublin [place] [id number] WBC #/vol (Bld) 5.2 {x10E3/uL} Normal 3.4-10.8 Compr [facility] Internal [facility] Work Phone: Comment on above: PATIENT NOT FASTINGP ERFORMED BY: CB [facility] Cpipyd5269 [address]Dublin [place] [id number] WBC (Bld) [#/Vol] 5.2 10*3/uL Normal 3.4-10.8 Compre [facility] Internal [facility]; [facility] Work Phone: Comment on above: PATIENT NOT FASTINGP ERFORMED BY: ANDREA [facility] Anfgog0421 [address] RoadDublin [place] [id number] Metabolic Panel, Comprehensi ve (18493)Ordered By: Middle School Teacher on 05-06-2018 Albumin mass conc 4.9 g/dL Normal 3.5-5.5 Compre[facility] Internal Medicine Work Phone: Comment on above: PATIENT NOT FASTINGP ERFORMED BY: ANDREA [facility] Xdifgj2623 [address] RoadDublin [place] [id number] Albumin/Globulin mass ratio 2.3 {ratio} Abnormal 1.2-2.2 [facility] Work Phone: Comment on above: PATIENT NOT FASTINGP ERFORMED BY: ANDREA [facility] Mhqktb2833 [address] RoadDublin [place] [id number] ALP [Catalytic activity/Vol] 74 U/L Normal 39-117 [facility]; [facility] Work Phone: Comment on above: PATIENT NOT FASTINGP ERFORMED BY: CB [facility] Fqgags6653 [address]Dublin [place] [id number] ALP enzyme act/vol 74 [iU]/L Normal 39-117 [facility] Internal [facility] Work Phone: Comment on above: PATIENT NOT FASTINGP ERFORMED BY: CB [facility] Hfgvvk3016 [address] RoadDublin [place] [id number] ALT [Catalytic activity/Vol] 11 U/L Normal 0-44 [facility]; [facility] Work Phone: Comment on above: PATIENT NOT FASTINGP ERFORMED BY: ANDREA [facility] Otqdah9793 [address] RoadDublin [place] [id number] ALT enzyme act/vol 11 [iU]/L Normal 0-44 Compre [facility] Internal Medicine Work Phone: Comment on above: PATIENT NOT FASTINGP ERFORMED BY: CB [facility] Mazsca0191 [address]blin [place] [id number] AST [Catalytic activity/Vol] 20 U/L Normal 0-40 [facility]; [facility] Work Phone: Comment on above: PATIENT NOT FASTINGP ERFORMED BY: ANDREA [facility] Bzuakt3177 [address] Roadblin [place] [id number] AST enzyme act/vol 20 [iU]/L Normal 0-40 [facility] Internal Medicine Work Phone: Comment on above: PATIENT NOT FASTINGP ERFORMED BY: ANDREA [facility] Koqyaq[address] [facility]in [place] [id number] Bilirubin mass conc 0.6 mg/dL Normal 0.0-1.2 Compr ehensive Internal Medicine Work Phone: Comment on above: PATIENT NOT FASTINGP ERFORMED BY: ANDREA LabCojeison SullivanGhchtk[address] [facility]in [place] [id number] Calcium mass conc 10.1 mg/dL Normal 8.7-10.2 Compreh ensive Internal Medicine Work Phone: Comment on above: PATIENT NOT FASTINGP ERFORMED BY: ANDREA [facility] Xkwuks[address] [facility]in [place] [id number] Chloride molar conc 103 mmol/L Normal 96-106 Compr ehensive Internal Medicine Work Phone: Comment on above: PATIENT NOT FASTINGP ERFORMED BY: ANDREA [facility] Wimbce1548 [address] RoadDublin [place] [id number] CO2 molar conc 17 mmol/L Abnormal 20-29 Comprehens alexandra Internal Medicine Work Phone: Comment on above: PATIENT NOT FASTINGP ERFORMED BY: ANDREA [facility] Hmggvs[address] [facility] [place] [id number] Creatinine mass conc 0.71 mg/dL Abnormal 0.76-1.27 Comp rehensive Internal Medicine Work Phone: Comment on above: PATIENT NOT FASTINGP ERFORMED BY: ANDREA Ashford6370 [facility] [id number] GFR/1.73 sq M predicted among blacks CKD-EPI vol rate/area (S/P/Bld) 137 mL/min/1.73 Normal Comprehensiv e Internal Medicine Work Phone: Comment on above: PATIENT NOT FASTINGP ERFORMED BY: ANDREA Chrystal Sullivanlin6370 [facility] [id number] GFR/1.73 sq M predicted among non-blacks CKD-EPI vol rate/area (S/P/Bld) 118 mL/min/1.73 Normal [facility] Work Phone: Comment on above: PATIENT NOT FASTINGP ERFORMED BY: ANDREA Chrystal Sullivanlin6370 [facility] [id number] Globulin mass conc (S) 2.1 g/dL Normal 1.5-4.5 [facility] Work Phone: Comment on above: PATIENT NOT FASTINGP ERFORMED BY: ANDREA Chrystal Sullivanlin6370 [facility] [id number] Glucose mass conc 88 mg/dL Normal 65-99 Compreh ensive Internal Medicine Work Phone: Comment on above: PATIENT NOT FASTINGP ERFORMED BY: ANDREA Chrystal Sullivanlin6370 [facility] [id number] Potassium molar conc 4.3 mmol/L Normal 3.5-5.2 Comp rehensive Internal Medicine Work Phone: Comment on above: PATIENT NOT FASTINGP ERFORMED BY: ANDREA Chrystal Sullivanlin6370 [facility] [id number] Protein mass conc 7.0 g/dL Normal 6.0-8.5 Compreh ensive Internal Medicine Work Phone: Comment on above: PATIENT NOT FASTINGP ERFORMED BY: ANDREA [place]ford6370 [facility] [id number] Sodium molar conc 139 mmol/L Normal 134-144 Compreh ensive Internal Medicine Work Phone: Comment on above: PATIENT NOT FASTINGP ERFORMED BY: ANDREA Ashford6370 [facility] [id number] Urea nitrogen mass conc 15 mg/dL Normal 6-20 [facility] Work Phone: Comment on above: PATIENT NOT FASTINGP ERFORMED BY: ANDREA Ashford6370 [facility] [id number] Urea nitrogen/Creatinine mass ratio 21 mg/mg Abnormal 9-20 [facility] Work Phone: Comment on above: PATIENT NOT FASTINGP ERFORMED BY: ANDREA Ashford6370 [facility] [id number] TSH ([id number])Ordered By: Tae m Camera Mechanic on 05-06-2018 Thyrotropin Qn 2.280 {uIU/mL} Normal 0.450-4.500 Compr [facility] Internal Medicine Work Phone: Comment on above: PATIENT NOT FASTINGP ERFORMED BY: ANDREA Sullivanlin6370 [facility] [id number] CALCIFEDIOL ([id number])Ordered B y: Middle School Teacher on 06-25-2017 25-Hydroxyvitamin D2+25-Hydroxyvitamin D3 mass conc 24.7 ng/mL Abnormal 30.0-100.0 [facility] Work Phone: Comment on above: Vitamin D deficiency has been defined by the [place] of[place]icine and an Endocrine Society practice guideline as alevel of serum 25-OH vitamin D less than 20 ng/mL (1,2).The Endocrine Society went on to further define vitamin Dinsufficiency as a level between 21 and 29 ng/mL (2).1. IOM ([place] of Medicine). 2010. Dietary reference intakes for calcium and D. [place]: The National Academies Press.2. Melani MF, Pippa NC, Hannah TORRES, et al. Evaluation, treatment, and prevention of vitamin D deficiency: an Endocrine Society clinical practice guideline. JCEM. 2010; 96(7):1911-30. PATIENT NOT FASTINGP ERFORMED BY: CB [facility] Wtyfxy1231 [address]Dublin [place] [id number] CBC, Platelets & Auto Diff ( [id number])Ordered By: Middle School Teacher on 06-25-2017 Basophils #/vol (Bld) 0.0 {x10E3/uL} Normal 0.0-0.2 [facility] Work Phone: Comment on above: PATIENT NOT FASTINGP ERFORMED BY: CB [facility] Ewxyfl1917 [address]Dublin [place] [id number] Basophils (Bld) [#/Vol] 0.0 10*3/uL Normal 0.0-0.2 [facility]; [facility] Work Phone: Comment on above: PATIENT NOT FASTINGP ERFORMED BY: [facility] Qcilto5161 [address]Duin [place] [id number] Basophils/100 WBC (Bld) 1 % Normal [facility] Work Phone: Comment on above: PATIENT NOT FASTINGP ERFORMED BY: [facility] Yoeyyr3433 [address] RoadUnc Hospitals Hills[facility] Campusin [place] [id number] Eosinophils #/vol (Bld) 0.3 {x10E3/uL} Normal 0.0-0.4 [facility] Work Phone: Comment on above: PATIENT NOT FASTINGP ERFORMED BY: [facility] Qbvxlz9266 [address]blin [place] [id number] Eosinophils (Bld) [#/Vol] 0.3 10*3/uL Normal 0.0-0.4 [facility]; [facility] Work Phone: Comment on above: PATIENT NOT FASTINGP ERFORMED BY: CB [facility] Ludmhv5700 [address]Dublin [place] [id number] Eosinophils/100 WBC (Bld) 4 % Normal [facility] Work Phone: Comment on above: PATIENT NOT FASTINGP ERFORMED BY: CB [facility] Gbzjsy3208 [address]Dublin [place] [id number] Erythrocyte distribution width Ratio (RBC) 12.7 % Normal 12.3-15.4 [facility] Work Phone: Comment on above: PATIENT NOT FASTINGP ERFORMED BY: ANDREA GuptaCojeison Yeaqqd[address] [facility] [place] [id number] Hematocrit Volume Fraction (Bld) 44.4 % Normal 37.5-51.0 [facility] Work Phone: Comment on above: PATIENT NOT FASTINGP ERFORMED BY: CB [facility] Biisoe8900 [address] RoadNovant Health [facility] [id number] Hemoglobin mass conc (Bld) 15.8 g/dL Normal 12.6-17.7 [facility] Work Phone: Comment on above: PATIENT NOT FASTINGP ERFORMED BY: ANDREA [facility] Vcfsag9881 [address] RoadNovant Health [facility] [id number] Immature granulocytes #/vol (Bld) 0.0 {x10E3/uL} Normal 0.0-0.1 [facility] Work Phone: Comment on above: PATIENT NOT FASTINGP ERFORMED BY: CB [facility] Kdekth8180 [address] RoadUnc Hospitals Hills[facility] Campusin [place] [id number] Immature granulocytes (Bld) [#/Vol] 0.0 10*3/uL Normal 0.0-0.1 [facility]; [facility] Work Phone: Comment on above: PATIENT NOT FASTINGP ERFORMED BY: CB [facility] Ruvwjg7964 [address] RoadUnc Hospitals Hills[facility] Campusin [place] [id number] Immature granulocytes/100 WBC (Bld) 0 % Normal [facility] Work Phone: Comment on above: PATIENT NOT FASTINGP ERFORMED BY: CB [facility] Iozjdu2203 [address]blin [place] [id number] Lymphocytes #/vol (Bld) 2.2 {x10E3/uL} Normal 0.7-3.1 [facility] Work Phone: Comment on above: PATIENT NOT FASTINGP ERFORMED BY: CB [facility] Okgmuc2317 [address]Dublin [place] [id number] Lymphocytes (Bld) [#/Vol] 2.2 10*3/uL Normal 0.7-3.1 [facility]; [facility] Work Phone: Comment on above: PATIENT NOT FASTINGP ERFORMED BY: CB [facility] Slbixl9071 [address]Dublin [place] [id number] Lymphocytes/100 WBC (Bld) 34 % Normal [facility] Work Phone: Comment on above: PATIENT NOT FASTINGP ERFORMED BY: CB [facility] Xvdwff7401 [address] Roadblin [place] [id number] MCH Entitic mass (RBC) 31.0 pg Normal 26.6-33.0 [facility] Work Phone: Comment on above: PATIENT NOT FASTINGP ERFORMED BY: CB [facility] Fdzvos2960 [address] RoadUnc Hospitals [facility] Campusin [place] [id number] MCHC mass conc (RBC) 35.6 g/dL Normal 31.5-35.7 [facility] Internal Medicine Work Phone: Comment on above: PATIENT NOT FASTINGP ERFORMED BY: CB [facility] Kqubjp0549 [address] RoadUnc Hospitals [facility] Campusin [place] [id number] MCV Entitic volume (RBC) 87 fL Normal 79-97 [facility] Work Phone: Comment on above: PATIENT NOT FASTINGP ERFORMED BY: CB [facility] Slplif0857 [address]Duin [place] [id number] Monocytes #/vol (Bld) 0.4 {x10E3/uL} Normal 0.1-0.9 [facility] Work Phone: Comment on above: PATIENT NOT FASTINGP ERFORMED BY: CB [facility] Sjhfjd9605 [address]Dublin [place] [id number] Monocytes (Bld) [#/Vol] 0.4 10*3/uL Normal 0.1-0.9 [facility]; [facility] Work Phone: Comment on above: PATIENT NOT FASTINGP ERFORMED BY: CB [facility] Ynriyp8012 [address]Dublin [place] [id number] Monocytes/100 WBC (Bld) 6 % Normal [facility] Work Phone: Comment on above: PATIENT NOT FASTINGP ERFORMED BY: CB [facility] Zkcriy2510 [address]Dublin [place] [id number] Neutrophils #/vol (Bld) 3.5 {x10E3/uL} Normal 1.4-7.0 [facility] Work Phone: Comment on above: PATIENT NOT FASTINGP ERFORMED BY: CB [facility] Cfciqf9161 [address]Dublin [place] [id number] Neutrophils (Bld) [#/Vol] 3.5 10*3/uL Normal 1.4-7.0 [facility]; [facility] Work Phone: Comment on above: PATIENT NOT FASTINGP ERFORMED BY: CB LabCojeison AshfordTfxvru1767 [address] RoadDublin [place] [id number] Neutrophils/100 WBC (Bld) 55 % Normal [facility] Work Phone: Comment on above: PATIENT NOT FASTINGP ERFORMED BY: CB [facility] Drgpnp9263 [address] RoadDublin [place] [id number] Platelets #/vol (Bld) 176 {x10E3/uL} Normal 150-379 [facility] Work Phone: Comment on above: PATIENT NOT FASTINGP ERFORMED BY: CB [facility] Nkhjbt8828 [address]Dublin [place] [id number] Platelets (Bld) [#/Vol] 176 10*3/uL Normal 150-379 [facility]; [facility] Work Phone: Comment on above: PATIENT NOT FASTINGP ERFORMED BY: CB [facility] Tsbgoi9354 [address]Dublin [place] [id number] RBC #/vol (Bld) 5.09 {x10E6/uL} Normal 4.14-5.80 [facility] Internal Medicine Work Phone: Comment on above: PATIENT NOT FASTINGP ERFORMED BY: CB [facility] Wdydkd5364 [address]Dublin [place] [id number] RBC (Bld) [#/Vol] 5.09 10*6/uL Normal 4.14-5.80 [facility]; [facility] Work Phone: Comment on above: PATIENT NOT FASTINGP ERFORMED BY: ANDREA Ashford[address] [facility] [id number] WBC #/vol (Bld) 6.5 {x10E3/uL} Normal 3.4-10.8 [facility] Internal Medicine Work Phone: Comment on above: PATIENT NOT FASTINGP ERFORMED BY: ANDREA Ashford6370 [facility] [id number] WBC (Bld) [#/Vol] 6.5 10*3/uL Normal 3.4-10.8 [facility] Internal Medicine; [facility] Work Phone: Comment on above: PATIENT NOT FASTINGP ERFORMED BY: ANDREA Ashford6370 [facility] [id number] Metabolic Panel, Comprehensi ve ([id number])Ordered By: Middle School Teacher on 06-25-2017 Albumin mass conc 4.9 g/dL Normal 3.5-5.5 [facility] Internal Medicine Work Phone: Comment on above: PATIENT NOT FASTINGP ERFORMED BY: ANDREA Ashford6370 [facility] [id number] Albumin/Globulin mass ratio 2.2 {ratio} Normal 1.2-2.2 [facility] Internal Medicine Work Phone: Comment on above: PATIENT NOT FASTINGP ERFORMED BY: ANDREA Ashford6370 [facility] [id number] ALP [Catalytic activity/Vol] 78 U/L Normal 39-117 [facility] Internal Medicine; [facility] Work Phone: Comment on above: PATIENT NOT FASTINGP ERFORMED BY: ANDREA Ashford6370 [facility] [id number] ALP enzyme act/vol 78 [iU]/L Normal 39-117 [facility] Internal Medicine Work Phone: Comment on above: PATIENT NOT FASTINGP ERFORMED BY: ANDREA Sullivanlin6[address] [place] [id number] ALT [Catalytic activity/Vol] 15 U/L Normal 0-44 [facility]; [facility] Work Phone: Comment on above: PATIENT NOT FASTINGP ERFORMED BY: ANDREA [facility] Aedetv8706 [address]Dublin [place] [id number] ALT enzyme act/vol 15 [iU]/L Normal 0-44 [facility] Internal Medicine Work Phone: Comment on above: PATIENT NOT FASTINGP ERFORMED BY: CB [facility] Jpsdyi9904 [address] RoadDublin [place] [id number] AST [Catalytic activity/Vol] 25 U/L Normal 0-40 [facility]; [facility] Work Phone: Comment on above: PATIENT NOT FASTINGP ERFORMED BY: ANDREA [facility] Nfyzub8983 [address]Dublin [place] [id number] AST enzyme act/vol 25 [iU]/L Normal 0-40 [facility] Internal Medicine Work Phone: Comment on above: PATIENT NOT FASTINGP ERFORMED BY: CB [facility] Yejojq9692 [address]Dublin [place] [id number] Bilirubin mass conc 0.7 mg/dL Normal 0.0-1.2 Compr ensive Internal Medicine Work Phone: Comment on above: PATIENT NOT FASTINGP ERFORMED BY: CB [facility] Fqjwjn3078 [address]Dublin [place] [id number] Calcium mass conc 9.9 mg/dL Normal 8.7-10.2 Compreh ensive Internal Medicine Work Phone: Comment on above: PATIENT NOT FASTINGP ERFORMED BY: CB [facility] Iwpbxm4924 [address]Dublin [place] [id number] Chloride molar conc 100 mmol/L Normal 96-106 Compr ehensive Internal Medicine Work Phone: Comment on above: PATIENT NOT FASTINGP ERFORMED BY: CB [facility] Fhowuu9531 [address]Dublin [place] [id number] CO2 molar conc 21 mmol/L Normal 18-29 Comprehens alexandra Internal Medicine Work Phone: Comment on above: PATIENT NOT FASTINGP ERFORMED BY: ANDREA [facility] Ekbhsz6300 [address]Dublin [place] [id number] Creatinine mass conc 0.78 mg/dL Normal 0.76-1.27 Comp rehensive Internal Medicine Work Phone: Comment on above: PATIENT NOT FASTINGP ERFORMED BY: CB [facility] Sconxt1113 [address]Dublin [place] [id number] GFR/1.73 sq M predicted among blacks CKD-EPI vol rate/area (S/P/Bld) 132 mL/min/1.73 Normal Comprehensiv e Internal Medicine Work Phone: Comment on above: PATIENT NOT FASTINGP ERFORMED BY: CB [facility] Iukiac4028 [address]Dublin [place] [id number] GFR/1.73 sq M predicted among non-blacks CKD-EPI vol rate/area (S/P/Bld) 115 mL/min/1.73 Normal [facility] Work Phone: Comment on above: PATIENT NOT FASTINGP ERFORMED BY: CB [facility] Onwmcs1745 [address]Dublin [place] [id number] Globulin mass conc (S) 2.2 g/dL Normal 1.5-4.5 [facility] Work Phone: Comment on above: PATIENT NOT FASTINGP ERFORMED BY: CB [facility] Tlbyip9475 [address]Dublin [place] [id number] Glucose mass conc 71 mg/dL Normal 65-99 Compreh ensive Internal Medicine Work Phone: Comment on above: PATIENT NOT FASTINGP ERFORMED BY: CB [facility] Cpxgfr4756 [address]Dublin [place] [id number] Potassium molar conc 4.1 mmol/L Normal 3.5-5.2 Comp rehensive Internal Medicine Work Phone: Comment on above: PATIENT NOT FASTINGP ERFORMED BY: CB [facility] Wihuwn6936 [address]Dublin [place] [id number] Protein mass conc 7.1 g/dL Normal 6.0-8.5 Compreh ensive Internal Medicine Work Phone: Comment on above: PATIENT NOT FASTINGP ERFORMED BY: ANDREA [facility] Ehtqzz8673 [address]Dublin [place] [id number] Sodium molar conc 142 mmol/L Normal 134-144 Compreh ensive Internal Medicine Work Phone: Comment on above: PATIENT NOT FASTINGP ERFORMED BY: ANDREA [facility] Bnbamk8197 [address]Dublin [place] [id number] Urea nitrogen mass conc 12 mg/dL Normal 6-20 [facility] Work Phone: Comment on above: PATIENT NOT FASTINGP ERFORMED BY: ANDREA [facility] Msibfv3352 [address]Dublin [place] [id number] Urea nitrogen/Creatinine mass ratio 15 mg/mg Normal 9-20 [facility] Work Phone: Comment on above: PATIENT NOT FASTINGP ERFORMED BY: ANDREA [facility] Inqedd[address] [facility]in [place] [id number] TSH ([id number])Ordered By: Syste m Camera Mechanic on 06-25-2017 Thyrotropin Qn 2.940 {uIU/mL} Normal 0.450-4.500 Compr ehensive Internal Medicine Work Phone: Comment on above: PATIENT NOT FASTINGP ERFORMED BY: ANDREA [facility] Gyckld7683 [address]Dublin [place] [id number] URINALYSIS ([id number])Ordered By : Middle School Teacher on 06-25-2017 Appearance Nom (U) Clear Normal Compre hensive Internal Medicine Work Phone: Comment on above: PATIENT NOT FASTINGP ERFORMED BY: ANDREA [facility] Oaohpe1786 [address]Dublin [place] [id number] Bilirubin Ql (U) Negative Normal Comprehe nsive Internal Medicine Work Phone: Comment on above: PATIENT NOT FASTINGP ERFORMED BY: ANDREA [facility] Anbdio9089 [address]Dublin [place] [id number] Bilirubin Ql (U) Negative Normal Comprehe nsive Internal Medicine; [facility] Work Phone: Comment on above: PATIENT NOT FASTINGP ERFORMED BY: ANDREA Chrystal Qqqnzl6104 [address]Dublin [place] [id number] Color Nom (U) Yellow Normal Comprehensi ve Internal Medicine Work Phone: Comment on above: PATIENT NOT FASTINGP ERFORMED BY: ANDREA Chrystal Iazafx1797 [address]Dublin [place] [id number] Glucose Ql (U) Negative Normal Comprehens alexandra Internal Medicine Work Phone: Comment on above: PATIENT NOT FASTINGP ERFORMED BY: ANDREA Sejeison SullivanRzmunt0226 [address] RoadDublin [place] [id number] Glucose Ql (U) Negative Normal Comprehens alexandra Internal Medicine; [facility] Work Phone: Comment on above: PATIENT NOT FASTINGP ERFORMED BY: ANDREA Sejeison SullivanRyhpyl1794 [address]Dublin [place] [id number] Hemoglobin Ql (U) Negative Normal Compreh ensive Internal Medicine Work Phone: Comment on above: PATIENT NOT FASTINGP ERFORMED BY: ANDREA Sejeison SullivanKvwptu2925 [address] RoadDuin [place] [id number] Hemoglobin Ql (U) Negative Normal Compreh ensive Internal Medicine; [facility] Work Phone: Comment on above: PATIENT NOT FASTINGP ERFORMED BY: ANDREA Sejeison SullivanIogsnx3413 [address] RoadDuin [place] [id number] Ketones Ql (U) Negative Normal Comprehens alexandra Internal Medicine Work Phone: Comment on above: PATIENT NOT FASTINGP ERFORMED BY: ANDREA Sejeison SullivanXhcecv9086 [address] RoadDublin [place] [id number] Ketones Ql (U) Negative Normal Comprehens alexandra [facility] Medicine; [facility] Work Phone: Comment on above: PATIENT NOT FASTINGP ERFORMED BY: ANDREA Sejeison SullivanIwrmbe0715 [address] RoadDublin [place] [id number] Leukocyte esterase Test strip Ql (U) Negative Normal [facility] Work Phone: Comment on above: PATIENT NOT FASTINGP ERFORMED BY: ANDREA AlonsoArielle SullivanXrrcax5608 [address]Dublin [place] [id number] Leukocyte esterase Test strip Ql (U) Negative Normal [facility]; [facility] Work Phone: Comment on above: PATIENT NOT FASTINGP ERFORMED BY: ANDREA Ashford[address] [facility] [id number] Microscopic observation LM Nom (Urine sed) MICNIP Normal [facility] Work Phone: Comment on above: Microscopic not cindi cated and not performed. PATIENT NOT FASTINGP ERFORMED BY: ANDREA Sullivanlin6370 [facility] [id number] Nitrite Ql (U) Negative Normal Comprehens alexandra Internal Medicine Work Phone: Comment on above: PATIENT NOT FASTINGP ERFORMED BY: ANDREA Sullivanlin6370 [facility] [id number] Nitrite Ql (U) Negative Normal Comprehens alexandra [facility]; [facility] Work Phone: Comment on above: PATIENT NOT FASTINGP ERFORMED BY: ANDREA Ashford6370 [facility] [id number] pH (U) 7.5 [pH] Normal 5.0-7.5 [facility] Work Phone: Comment on above: PATIENT NOT FASTINGP ERFORMED BY: ANDREA Ashford6370 [facility] [id number] Protein Ql (U) Negative Normal Comprehens alexandra Internal Medicine Work Phone: Comment on above: PATIENT NOT FASTINGP ERFORMED BY: ANDREA Sullivanlin6370 [facility] [id number] Protein Ql (U) Negative Normal Comprehens alexandra [facility]; [facility] Work Phone: Comment on above: PATIENT NOT FASTINGP ERFORMED BY: ANDREA Sullivanlin6370 [facility] [id number] Specific gravity Relative Density (U) 1.011 1 Normal 1.005-1.030 Comprehensi ve Internal Medicine Work Phone: Comment on above: PATIENT NOT FASTINGP ERFORMED BY: CB [facility] Exrzbn3349 [address]Dublin [place] [id number] Urobilinogen (U) [Mass/Vol] 0.2 mg/dL Normal 0.2-1.0 [facility]; [facility] Work Phone: Comment on above: PATIENT NOT FASTINGP ERFORMED BY: CB [facility] Iikghs9261 [address]Dublin [place] [id number] Urobilinogen Test strip mass conc (U) 0.2 mg/dL Normal 0.2-1.0 Comprehensiv e Internal Medicine Work Phone: Comment on above: PATIENT NOT FASTINGP ERFORMED BY: CB [facility] Tlcwhv9568 [address]Dublin [place] [id number] CALCIFEDIOL ([id number])Ordered B y: Middle School Teacher on 03-27-2016 25-Hydroxyvitamin D2+25-Hydroxyvitamin D3 mass conc 27.3 ng/mL Abnormal 30.0-100.0 [facility] Work Phone: Comment on above: Please Note: Specime n is lipemic.Vitamin D deficiency has been defined by the [place] of[place]icine and an Endocrine Society practice guideline as alevel of serum 25-OH vitamin D less than 20 ng/mL (1,2).The Endocrine Society went on to further define vitamin Dinsufficiency as a level between 21 and 29 ng/mL (2).1. IOM ([place] of Medicine). 2010. Dietary reference intakes for calcium and D. [place]: The National Academies Press.2. Mleani MF, Pippa NC, Hannah TORRES, et al. Evaluation, treatment, and prevention of vitamin D deficiency: an Endocrine Society clinical practice guideline. JCEM. 2010; 96(7):1911-30. PATIENT NOT FASTINGP ERFORMED BY: CB [facility] Mpoonm1347 [address] RoadDublin [place] [id number] Information: [id number] CALCIFEDIOL ([id number])Ordered B y: Middle School Teacher on 02-06-2016 25-Hydroxyvitamin D2+25-Hydroxyvitamin D3 mass conc 20.3 ng/mL Abnormal 30.0-100.0 [facility] Work Phone: Comment on above: Vitamin D deficiency has been defined by the [place] of[place]icine and an Endocrine Society practice guideline as alevel of serum 25-OH vitamin D less than 20 ng/mL (1,2).The Endocrine Society went on to further define vitamin Dinsufficiency as a level between 21 and 29 ng/mL (2).1. IOM ([place] of Medicine). 2010. Dietary reference intakes for calcium and D. [place]: The National Academies Press.2. Melani MF, Pippa GORDON, Hannah TORRES, et al. Evaluation, treatment, and prevention of vitamin D deficiency: an Endocrine Society clinical practice guideline. JCEM. 2010; 96(7):1911-30. PATIENT NOT FASTINGP ERFORMED BY: [facility] Akceiy1247 [facility] [id number] Information: [id number] Vital Signs Date Time Vital Sign Value Performing Clinician Facility 06-22-2025 15:11-0400 Diastolic blood pressure 88 mm[Hg] Sheri Bennett WEATHER TEACHER-C Work Phone: [facility] 06-22-2025 15:11-0400 Systolic blood pressure 151 mm[Hg] Sheri Bennett WEATHER TEACHER-C Work Phone: [facility] 06-22-2025 15:10-0400 Body mass index (BMI) [Ratio] 34.3 kg/m2 Sheri Bennett WEATHER TEACHER-C Work Phone: [facility] 06-22-2025 15:10-0400 Body weight 96.61 kg Sheri Bennett WEATHER TEACHER-C Work Phone: [facility] 06-22-2025 15:10-0400 Heart rate 76 /min Sheri Bennett WEATHER TEACHER-C Work Phone: [facility] 06-22-2025 15:10-0400 Respiratory rate 18 /min Sheri Bennett WEATHER TEACHER-C Work Phone: [facility] 06-22-2025 15:10-0400 SaO2% (BldA) [Mass fraction] 95 % Sheri Bennett WEATHER TEACHER-C Work Phone: [facility] 01-18-2025 14:47-0400 Body height 167.64 cm Sheri Morgan WEATHER TEACHER-C Work Phone: [facility] 01-18-2025 14:47-0400 Body mass index (BMI) [Ratio] 33.5 kg/m2 Sheri Morgan WEATHER TEACHER-C Work Phone: [facility] 01-18-2025 14:47-0400 Body weight 94.34 kg Sheri Morgan WEATHER TEACHER-C Work Phone: [facility] 01-18-2025 14:47-0400 Diastolic blood pressure 88 mm[Hg] Sheri Morgan WEATHER TEACHER-C Work Phone: [facility] 01-18-2025 14:47-0400 Heart rate 81 /min Sheri Morgan WEATHER TEACHER-C Work Phone: [facility] 01-18-2025 14:47-0400 Respiratory rate 16 /min Sheri Morgan WEATHER TEACHER-C Work Phone: [facility] 01-18-2025 14:47-0400 Systolic blood pressure 127 mm[Hg] Sheri Morgan WEATHER TEACHER-C Work Phone: [facility] 11-07-2023 14:40-0500 Body height 167.64 cm WEATHER TEACHER-C Sheri Morgan Work Phone: [facility] 11-07-2023 14:40-0500 Body mass index (BMI) [Ratio] 33.2 kg/m2 WEATHER TEACHER-C Sheri Morgan Work Phone: [facility] 11-07-2023 14:40-0500 Body weight 93.44 kg WEATHER TEACHER-C Sheri Morgan Work Phone: [facility] 11-07-2023 14:40-0500 Diastolic blood pressure 77 mm[Hg] WEATHER TEACHER-C Sheri Morgan Work Phone: [facility] 11-07-2023 14:40-0500 Heart rate 73 /min WEATHER TEACHER-C Sheri Morgan Work Phone: [facility] 11-07-2023 14:40-0500 Respiratory rate 16 /min WEATHER TEACHER-C Sheriginette Bennett Work Phone: [facility] 11-07-2023 14:40-0500 Systolic blood pressure 122 mm[Hg] WEATHER TEACHER-Bert Longoriaginette Bennett Work Phone: [facility] 04-21-2023 17:02-0400 Diastolic blood pressure 96 mm[Hg] [facility] 04-21-2023 17:02-0400 Heart rate 71 /min [facility] 04-21-2023 17:02-0400 Respiratory rate 17 /min [facility] 04-21-2023 17:02-0400 SaO2% (BldA) [Mass fraction] 99 % [facility] 04-21-2023 17:02-0400 Systolic blood pressure 131 mm[Hg] [facility] 04-21-2023 13:45-0400 Body height 167.64 cm [facility] 04-21-2023 13:45-0400 Body mass index (BMI) [Ratio] 32.3 kg/m2 [facility] 04-21-2023 13:45-0400 Body temperature 97.1 [degF] [facility] 04-21-2023 13:45-0400 Body weight 90.99 kg [facility] 01-21-2023 14:51-0400 Body height 167.64 cm Kezia Sarkar LICENSED VETERINARY TECHNICIAN [facility]; [facility] Work Phone: 01-21-2023 14:51-0400 Body mass index (BMI) [Ratio] 33.25 kg/m2 Kezia Slarb LICENSED VETERINARY TECHNICIAN [facility]; Comprehensive Internal Medicine Work Phone: 01-21-2023 14:51-0400 Body surface area Derived from formula 2.03 m2 Kezia Slarb LICENSED VETERINARY TECHNICIAN [facility]; [facility] Work Phone: 01-21-2023 14:51-0400 Body temperature 98.2 [degF] Kezia Slarb LICENSED VETERINARY TECHNICIAN [facility]; [facility] Work Phone: Comment on above: Method: Temporal 01-21-2023 14:51-0400 Body weight 93.44 kg Kezia Sarkar LICENSED VETERINARY TECHNICIAN [facility]; [facility] Work Phone: 01-21-2023 14:51-0400 Diastolic blood pressure 80 mm[Hg] Kezia Slarb LICENSED VETERINARY TECHNICIAN [facility]; [facility] Work Phone: Comment on above: Patient Position: Sitting; Cuff Location : Left Arm; Cuff Size: Standard 01-21-2023 14:51-0400 Heart rate 86 /min Kezia Leatharb LICENSED VETERINARY TECHNICIAN [facility]; [facility] Work Phone: Comment on above: Pattern: Regular 01-21-2023 14:51-0400 Respiratory rate 16 /min Kezia Leatharb LICENSED VETERINARY TECHNICIAN [facility]; [facility] Work Phone: Comment on above: Pattern: Unlabored 01-21-2023 14:51-0400 SaO2% (BldA) [Mass fraction] 98 % Kezia Slarb LICENSED VETERINARY TECHNICIAN [facility]; [facility] Work Phone: Comment on above: Room air 01-21-2023 14:51-0400 Systolic blood pressure 116 mm[Hg] Kezia Zhangrb LICENSED VETERINARY TECHNICIAN [facility]; [facility] Work Phone: Comment on above: Patient Position: Sitting; Cuff Location : Left Arm; Cuff Size: Standard 06-22-2019 13:14-0400 BMI (Body Mass Index) 33.09 kg/m2 Sara Norrissantino [facility] Work Phone: 06-22-2019 13:14-0400 BMI (Body Mass Index) 31.97 kg/m2 Kervin Rubin LPN [facility] Work Phone: 06-22-2019 13:14-0400 Body Temperature 97.4 [degF] Kervin Rubin LPN [facility] Work Phone: Comment on above: Method: Temporal 06-22-2019 13:14-0400 Body weight 92.99 kg Sara Horner [facility] Work Phone: 06-22-2019 13:14-0400 Body weight 89.84 kg Kervin Rubin LPN [facility] Work Phone: 06-22-2019 13:14-0400 BP Diastolic 76 mm[Hg] Kervin Ruibn LPN [facility] Internal Medicine Work Phone: Comment on above: Patient Position: Sitting; Cuff Location : Left Arm; Cuff Size: Standard 06-22-2019 13:14-0400 BP Systolic 122 mm[Hg] Kervin Rubin LPN [facility] Work Phone: Comment on above: Patient Position: Sitting; Cuff Location : Left Arm; Cuff Size: Standard 06-22-2019 13:14-0400 BSA (Body Surface Area) 2.02 m2 Sara Guptacar [facility] Internal Medicine Work Phone: 06-22-2019 13:14-0400 BSA (Body Surface Area) 1.99 m2 Kervin Rubin LPN [facility] Internal Medicine Work Phone: 06-22-2019 13:14-0400 Height 167.64 cm Kervin Rubin LPN [facility] Internal Medicine Work Phone: 06-22-2019 13:14-0400 Pulse (Heart Rate) 73 /min Kervin Rubin LPN [facility] Work Phone: Comment on above: Pattern: Regular 06-22-2019 13:14-0400 Pulse Oximetry 97 % [facility] Work Phone: Comment on above: Room air 06-22-2019 13:14-0400 Respiratory Rate 16 /min Kervin Rubin LPN [facility] Internal Medicine Work Phone: Comment on above: Pattern: Unlabored 06-22-2019 13:14-0400 SaO2% (BldA) [Mass fraction] 97 % Kervin Rubin LPN [facility]; [facility] Work Phone: Comment on above: Room air 02-17-2019 13:00-0400 BMI (Body Mass Index) 33.09 kg/m2 Kervin Rubin LPN [facility] Internal Medicine Work Phone: 02-17-2019 13:00-0400 Body Temperature 98.2 [degF] Kervin Rubin LPN [facility] Internal Medicine Work Phone: Comment on above: Method: Temporal 02-17-2019 13:00-0400 Body weight 92.99 kg Kervin Scottie MORA [facility] Internal Medicine Work Phone: 02-17-2019 13:00-0400 BP Diastolic 82 mm[Hg] Kervin Rubin LPN [facility] Internal Medicine Work Phone: Comment on above: Patient Position: Sitting; Cuff Location : Left Arm; Cuff Size: Standard 02-17-2019 13:00-0400 BP Systolic 130 mm[Hg] Kervin Scottie MORA [facility] Internal Medicine Work Phone: Comment on above: Patient Position: Sitting; Cuff Location : Left Arm; Cuff Size: Standard 02-17-2019 13:00-0400 BSA (Body Surface Area) 2.02 m2 Kervin Rubin LPN [facility] Internal Medicine Work Phone: 02-17-2019 13:00-0400 Height 167.64 cm Kervin Rubin LPN [facility] Work Phone: 02-17-2019 13:00-0400 Pulse (Heart Rate) 70 /min Kervin Rubni LPN [facility] Work Phone: Comment on above: Pattern: Regular 02-17-2019 13:00-0400 Pulse Oximetry 98 % Sara Guptacar [facility] Internal Medicine Work Phone: Comment on above: Room air 02-17-2019 13:00-0400 Respiratory Rate 16 /min Kervin Rubin LPN [facility] Internal Medicine Work Phone: Comment on above: Pattern: Unlabored 02-17-2019 13:00-0400 SaO2% (BldA) [Mass fraction] 98 % Kervin Rubin LPN [facility]; [facility] Work Phone: Comment on above: Room air 02-17-2019 13:00-0400 Weight 92.99 kg Sara Horner [facility] Internal Medicine Work Phone: 08-19-2018 15:04-0500 BMI (Body Mass Index) 33.09 kg/m2 Kervin Rubin LPN [facility] Internal Medicine Work Phone: 08-19-2018 15:04-0500 Body Temperature 98 [degF] Kervin Rubin LPN [facility] Work Phone: Comment on above: Method: Temporal 08-19-2018 15:04-0500 Body weight 92.99 kg Kervin Rubin LPN [facility] Internal Medicine Work Phone: 08-19-2018 15:04-0500 BP Diastolic 76 mm[Hg] Kervin Rubin LPN [facility] Internal Medicine Work Phone: Comment on above: Patient Position: Sitting; Cuff Location : Left Arm; Cuff Size: Standard 08-19-2018 15:04-0500 BP Systolic 124 mm[Hg] Kervin Rubin LPN [facility] Internal Medicine Work Phone: Comment on above: Patient Position: Sitting; Cuff Location : Left Arm; Cuff Size: Standard 08-19-2018 15:04-0500 BSA (Body Surface Area) 2.02 m2 Kervin Rubin LPN [facility] Internal Medicine Work Phone: 08-19-2018 15:04-0500 Height 167.64 cm Kervin Rubin LPN [facility] Internal Medicine Work Phone: 08-19-2018 15:04-0500 Pulse (Heart Rate) 74 /min Kervin Rubin LPN [facility] Work Phone: Comment on above: Pattern: Regular 08-19-2018 15:04-0500 Pulse Oximetry 97 % Sara Siri [facility] Internal Medicine Work Phone: Comment on above: Room air 08-19-2018 15:04-0500 Respiratory Rate 18 /min Kervin Rubin LPN [facility] Internal Medicine Work Phone: Comment on above: Pattern: Unlabored 08-19-2018 15:04-0500 SaO2% (BldA) [Mass fraction] 97 % Kervin Rubin LPN [facility]; [facility] Work Phone: Comment on above: Room air 08-19-2018 15:04-0500 Weight 92.99 kg Sara Guptacar [facility] Internal Medicine Work Phone: 05-20-2018 14:00-0400 BMI (Body Mass Index) 32.12 kg/m2 Alana Ortega [facility] Internal Medicine Work Phone: 05-20-2018 14:00-0400 Body Temperature 98.7 [degF] Alana Ortega [facility] Internal Medicine Work Phone: Comment on above: Method: Temporal 05-20-2018 14:00-0400 Body weight 90.27 kg Alana Ortega [facility] Internal Medicine Work Phone: 05-20-2018 14:00-0400 BP Diastolic 88 mm[Hg] Alana Ortega [facility] Internal Medicine Work Phone: Comment on above: Patient Position: Sitting; Cuff Location : Left Arm; Cuff Size: Standard 05-20-2018 14:00-0400 BP Systolic 122 mm[Hg] Alana Ortega [facility] Internal Medicine Work Phone: Comment on above: Patient Position: Sitting; Cuff Location : Left Arm; Cuff Size: Standard 05-20-2018 14:00-0400 BSA (Body Surface Area) 2 m2 Alana Ortega [facility] Internal Medicine Work Phone: 05-20-2018 14:00-0400 Height 167.64 cm Alana Ortega [facility] Internal Medicine Work Phone: 05-20-2018 14:00-0400 Pulse (Heart Rate) 82 /min Alana Ortega [facility] Internal Medicine Work Phone: Comment on above: Pattern: Regular 05-20-2018 14:00-0400 Pulse Oximetry 97 % Sara Horner [facility] Internal Medicine Work Phone: Comment on above: Room air 05-20-2018 14:00-0400 Respiratory Rate 14 /min Alana Ortega [facility] Internal Medicine Work Phone: Comment on above: Pattern: Unlabored 05-20-2018 14:00-0400 SaO2% (BldA) [Mass fraction] 97 % Alana Ortega [facility]; [facility] Work Phone: Comment on above: Room air 05-20-2018 14:00-0400 Weight 90.27 kg Sara Horner [facility] Internal Medicine Work Phone: 05-06-2018 09:43-0400 BP Diastolic 88 mm[Hg] Sara Horner Work Phone: [facility] Work Phone: Comment on above: Patient Position: Standing; Cuff Locatio n: Right Arm; Cuff Size: Standard 05-06-2018 09:43-0400 BP Systolic 125 mm[Hg] Sara Ciesa Work Phone: [facility] Work Phone: Comment on above: Patient Position: Standing; Cuff Locatio n: Right Arm; Cuff Size: Standard 05-06-2018 09:43-0400 Pulse (Heart Rate) 87 /min Sara Ciesa Work Phone: [facility] Work Phone: Comment on above: Pattern: Regular 05-06-2018 09:43-0400 BP Diastolic 87 mm[Hg] Sara Ciesa Work Phone: [facility] Work Phone: Comment on above: Patient Position: Sitting; Cuff Location : Right Arm; Cuff Size: Standard 05-06-2018 09:43-0400 BP Systolic 135 mm[Hg] Sara Ciesa Work Phone: [facility] Work Phone: Comment on above: Patient Position: Sitting; Cuff Location : Right Arm; Cuff Size: Standard 05-06-2018 09:43-0400 Pulse (Heart Rate) 79 /min Sara Ciesa Work Phone: [facility] Work Phone: Comment on above: Pattern: Regular 05-06-2018 08:49-0400 BMI (Body Mass Index) 32.16 kg/m2 Alana Ortega [facility] Work Phone: 05-06-2018 08:49-0400 Body Temperature 98 [degF] Alana Ortega [facility] Work Phone: Comment on above: Method: Temporal 05-06-2018 08:49-0400 Body weight 90.38 kg Alana Ortega [facility] Work Phone: 05-06-2018 08:49-0400 BP Diastolic 90 mm[Hg] Alana Ortega [facility] Work Phone: Comment on above: Patient Position: Sitting; Cuff Location : Left Arm; Cuff Size: Standard 05-06-2018 08:49-0400 BP Systolic 130 mm[Hg] Alana Ortega [facility] Medicine Work Phone: Comment on above: Patient Position: Sitting; Cuff Location : Left Arm; Cuff Size: Standard 05-06-2018 08:49-0400 BSA (Body Surface Area) 2 m2 Alana Ortega [facility] Medicine Work Phone: 05-06-2018 08:49-0400 Height 167.64 cm Alana Ortega [facility] Work Phone: 05-06-2018 08:49-0400 Pulse (Heart Rate) 74 /min Alana Ortega [facility] Internal Medicine Work Phone: Comment on above: Pattern: Regular 05-06-2018 08:49-0400 Pulse Oximetry 98 % Sara Horner [facility] Work Phone: Comment on above: Room air 05-06-2018 08:49-0400 Respiratory Rate 16 /min Alana Ortega [facility] Work Phone: Comment on above: Pattern: Unlabored 05-06-2018 08:49-0400 SaO2% (BldA) [Mass fraction] 98 % Alana Ortega [facility]; [facility] Work Phone: Comment on above: Room air 05-06-2018 08:49-0400 Weight 90.38 kg Sara Norrissantino [facility] Medicine Work Phone: 08-23-2017 14:22-0500 BMI (Body Mass Index) 33.89 kg/m2 Sultana Groves RN [facility] Work Phone: 08-23-2017 14:22-0500 Body Temperature 98.4 [degF] Sultana Groves RN [facility] Work Phone: Comment on above: Method: Temporal 08-23-2017 14:22-0500 Body weight 95.26 kg Sultana Groves RN [facility] Work Phone: 08-23-2017 14:22-0500 BP Diastolic 78 mm[Hg] Sultana Groves RN [facility] Work Phone: Comment on above: Patient Position: Sitting; Cuff Location : Left Arm; Cuff Size: Standard 08-23-2017 14:22-0500 BP Systolic 134 mm[Hg] Sultana Groves RN [facility] Work Phone: Comment on above: Patient Position: Sitting; Cuff Location : Left Arm; Cuff Size: Standard 08-23-2017 14:22-0500 BSA (Body Surface Area) 2.04 m2 Sultana Groves RN [facility] Work Phone: 08-23-2017 14:22-0500 Height 167.64 cm Sultana Groves RN [facility] Work Phone: 08-23-2017 14:22-0500 Pulse (Heart Rate) 73 /min Sultana Groves RN [facility] Work Phone: Comment on above: Pattern: Regular 08-23-2017 14:22-0500 Pulse Oximetry 98 % Sara Siri [facility] Work Phone: Comment on above: Room air 08-23-2017 14:22-0500 Respiratory Rate 16 /min Sultana Groves RN [facility] Work Phone: Comment on above: Pattern: Unlabored 08-23-2017 14:22-0500 SaO2% (BldA) [Mass fraction] 98 % Sultana Groves RN [facility]; [facility] Work Phone: Comment on above: Room air 08-23-2017 14:22-0500 Weight 95.26 kg Sara Horner [facility] Work Phone: 06-25-2017 13:52-0400 BMI (Body Mass Index) 32.99 kg/m2 Kezia Sarkar LPN [facility] Work Phone: 06-25-2017 13:52-0400 Body Temperature 98.4 [degF] Kezia Sarkar LPN [facility] Work Phone: 06-25-2017 13:52-0400 Body weight 92.7 kg Kezia Sarkar LPN [facility] Work Phone: 06-25-2017 13:52-0400 BP Diastolic 80 mm[Hg] Kezia Leatharb LICENSED VETERINARY TECHNICIAN [facility] Work Phone: Comment on above: Patient Position: Sitting; Cuff Location : Left Arm; Cuff Size: Standard 06-25-2017 13:52-0400 BP Systolic 122 mm[Hg] Kezia Leatharb LICENSED VETERINARY TECHNICIAN [facility] Work Phone: Comment on above: Patient Position: Sitting; Cuff Location : Left Arm; Cuff Size: Standard 06-25-2017 13:52-0400 BSA (Body Surface Area) 2.02 m2 Kezia Zhangrb LICENSED VETERINARY TECHNICIAN [facility] Work Phone: 06-25-2017 13:52-0400 Height 167.64 cm Kezia Sarkar LICENSED VETERINARY TECHNICIAN [facility] Work Phone: 06-25-2017 13:52-0400 Pulse (Heart Rate) 91 /min Kezia Sarkar LPN [facility] Work Phone: Comment on above: Pattern: Regular 06-25-2017 13:52-0400 Pulse Oximetry 98 % Sara Horner [facility] Work Phone: Comment on above: Room air 06-25-2017 13:52-0400 Respiratory Rate 18 /min Kezia Sarkar LICENSED VETERINARY TECHNICIAN [facility] Work Phone: Comment on above: Pattern: Unlabored 06-25-2017 13:52-0400 SaO2% (BldA) [Mass fraction] 98 % Kezia Leatharb LICENSED VETERINARY TECHNICIAN [facility]; [facility] Work Phone: Comment on above: Room air 06-25-2017 13:52-0400 Weight 92.7 kg Sara Horner [facility] Work Phone: 03-28-2016 15:16-0400 BMI (Body Mass Index) 32.62 kg/m2 Kezia Zhangrb LICENSED VETERINARY TECHNICIAN [facility] Work Phone: 03-28-2016 15:16-0400 Body Temperature 97.8 [degF] Kezia Zhangrb LICENSED VETERINARY TECHNICIAN [facility] Work Phone: 03-28-2016 15:16-0400 Body weight 91.68 kg Kezia Sarkar LICENSED VETERINARY TECHNICIAN [facility] Work Phone: 03-28-2016 15:16-0400 BP Diastolic 84 mm[Hg] Kezia Slarb LICENSED VETERINARY TECHNICIAN [facility] Work Phone: Comment on above: Patient Position: Sitting; Cuff Location : Left Arm; Cuff Size: Standard 03-28-2016 15:16-0400 BP Systolic 124 mm[Hg] Kezia Slarb LICENSED VETERINARY TECHNICIAN [facility] Work Phone: Comment on above: Patient Position: Sitting; Cuff Location : Left Arm; Cuff Size: Standard 03-28-2016 15:16-0400 BSA (Body Surface Area) 2.01 m2 Kezia Slarb LICENSED VETERINARY TECHNICIAN [facility] Work Phone: 03-28-2016 15:16-0400 Height 167.64 cm Kezia Slarb LICENSED VETERINARY TECHNICIAN [facility] Work Phone: 03-28-2016 15:16-0400 Pulse (Heart Rate) 76 /min Kezia Zhangrb LICENSED VETERINARY TECHNICIAN [facility] Work Phone: Comment on above: Pattern: Regular 03-28-2016 15:16-0400 Pulse Oximetry 98 % Sara Horner [facility] Work Phone: Comment on above: Room air 03-28-2016 15:16-0400 Respiratory Rate 17 /min Kezia Leatharb LICENSED VETERINARY TECHNICIAN [facility] Work Phone: Comment on above: Pattern: Unlabored 03-28-2016 15:16-0400 SaO2% (BldA) [Mass fraction] 98 % Kezia Slarb LICENSED VETERINARY TECHNICIAN [facility]; [facility] Work Phone: Comment on above: Room air 03-28-2016 15:16-0400 Weight 91.68 kg Sara Horner [facility] Work Phone: 02-06-2016 15:05-0400 BMI (Body Mass Index) 32.62 kg/m2 Kezia Slarb LICENSED VETERINARY TECHNICIAN [facility] Work Phone: 02-06-2016 15:05-0400 Body Temperature 98 [degF] Kezia Sarkar LPN [facility] Work Phone: 02-06-2016 15:05-0400 Body weight 91.68 kg Kezia Sarkar LPN [facility] Work Phone: 02-06-2016 15:05-0400 BP Diastolic 82 mm[Hg] Kezia Sarkar LICENSED VETERINARY TECHNICIAN [facility] Work Phone: Comment on above: Patient Position: Sitting; Cuff Location : Left Arm; Cuff Size: Standard 02-06-2016 15:05-0400 BP Systolic 132 mm[Hg] Kezia Sarkar LICENSED VETERINARY TECHNICIAN [facility] Work Phone: Comment on above: Patient Position: Sitting; Cuff Location : Left Arm; Cuff Size: Standard 02-06-2016 15:050400 BSA (Body Surface Area) 2.01 m2 Kezia Sarkar LICENSED VETERINARY TECHNICIAN [facility] Work Phone: 02-06-2016 15:05-0400 Height 167.64 cm Kezia Sarkar LPN [facility] Work Phone: 02-06-2016 15:05-0400 Pulse (Heart Rate) 95 /min Kezia Sarkar LPN [facility] Work Phone: Comment on above: Pattern: Regular 02-06-2016 15:05-0400 Pulse Oximetry 98 % Sara Horner [facility] Work Phone: Comment on above: Room air 02-06-2016 15:05-0400 Respiratory Rate 17 /min Kezia Sarkar LPN [facility] Work Phone: Comment on above: Pattern: Unlabored 02-06-2016 15:05-0400 SaO2% (BldA) [Mass fraction] 98 % Kezia Sarkar LICENSED VETERINARY TECHNICIAN [facility]; [facility] Work Phone: Comment on above: Room air 02-06-2016 15:05-0400 Weight 91.68 kg Sara Horner [facility] Work Phone: 04-04-2015 15:28-0400 BMI (Body Mass Index) 30.26 kg/m2 Kezia Zhangrb LICENSED VETERINARY TECHNICIAN [facility] Work Phone: 04-04-2015 15:28-0400 Body Temperature 97.8 [degF] Kezia Slarb LICENSED VETERINARY TECHNICIAN [facility] Work Phone: 04-04-2015 15:28-0400 Body weight 85.05 kg Kezia Zhangrb LICENSED VETERINARY TECHNICIAN [facility] Work Phone: 04-04-2015 15:28-0400 BP Diastolic 80 mm[Hg] Kezia Slarb LICENSED VETERINARY TECHNICIAN [facility] Work Phone: Comment on above: Patient Position: Sitting; Cuff Location : Left Arm; Cuff Size: Standard 04-04-2015 15:28-0400 BP Systolic 118 mm[Hg] Kezia Slarb LICENSED VETERINARY TECHNICIAN [facility] Work Phone: Comment on above: Patient Position: Sitting; Cuff Location : Left Arm; Cuff Size: Standard 04-04-2015 15:280400 BSA (Body Surface Area) 1.95 m2 Kezia Slarb LICENSED VETERINARY TECHNICIAN [facility] Work Phone: 04-04-2015 [id number] Height 167.64 cm Kezia Slarb LICENSED VETERINARY TECHNICIAN [facility] Work Phone: 04-04-2015 15:28-0400 Pulse (Heart Rate) 77 /min Kezia Zhangrb LICENSED VETERINARY TECHNICIAN [facility] Work Phone: Comment on above: Pattern: Regular 04-04-2015 15:28-0400 Pulse Oximetry 98 % Sara Horner [facility] Work Phone: Comment on above: Room air 04-04-2015 15:28-0400 Respiratory Rate 16 /min Kezia Slarb LICENSED VETERINARY TECHNICIAN [facility] Work Phone: Comment on above: Pattern: Unlabored 04-04-2015 15:28-0400 SaO2% (BldA) [Mass fraction] 98 % Kezia Slarb LICENSED VETERINARY TECHNICIAN [facility]; [facility] Work Phone: Comment on above: Room air 04-04-2015 15:28-0400 Weight 85.05 kg Sara Horner [facility] Work Phone: 03-21-2015 15:39-0400 BMI (Body Mass Index) 30.99 kg/m2 Kelli Rodriguez ABBY [facility] Work Phone: 03-21-2015 15:39-0400 Body Temperature 99.4 [degF] Kelli Rodriguez ABBY [facility] Work Phone: Comment on above: Method: Oral 03-21-2015 15:39-0400 Body weight 87.09 kg Kelli Rodriguez ABBY [facility] Work Phone: 03-21-2015 15:39-0400 BP Diastolic 72 mm[Hg] Kelli Rodriguez ABBY [facility] Work Phone: Comment on above: Patient Position: Sitting; Cuff Location : Left Arm; Cuff Size: Standard 03-21-2015 15:39-0400 BP Systolic 110 mm[Hg] Kelli Rodriguez ABBY [facility] Work Phone: Comment on above: Patient Position: Sitting; Cuff Location : Left Arm; Cuff Size: Standard 03-21-2015 15:39-0400 BSA (Body Surface Area) 1.97 m2 Kelli Rodriguez ABBY [facility] Work Phone: 03-21-2015 15:39-0400 Height 167.64 cm Kelli Rodriguez ABBY [facility] Work Phone: 03-21-2015 15:39-0400 Pulse (Heart Rate) 90 /min Kelli Rodriguez ABBY [facility] Work Phone: Comment on above: Pattern: Regular 03-21-2015 15:39-0400 Pulse Oximetry 97 % Sara Horner [facility] Work Phone: Comment on above: Room air 03-21-2015 15:39-0400 SaO2% (BldA) [Mass fraction] 97 % Kelli Rodriguez ABBY [facility]; [facility] Work Phone: Comment on above: Room air 03-21-2015 15:39-0400 Weight 87.09 kg Sara Horner [facility] Work Phone: Encounters Encounter Date Encounter Type Care Provider Facility Start: 07-26-2025 End: 07-26-2025 ambulatory Zeke Pineda WEATHER TEACHER Facility:[facility] Start: 06-22-2025 End: 06-22-2025 Patient encounter procedure Zeke Pineda WEATHER TEACHER-C -[facility] Work Phone: Start: 06-22-2025 End: 06-22-2025 ambulatory Sheri Bennett WEATHER TEACHER-C Work Phone: -[facility] Start: 06-22-2025 End: 06-22-2025 ambulatory Zeke Pineda WEATHER TEACHER Facility:[facility] Start: 04-15-2025 Non-patient / Non-visit Dr. James Campbell MD -[facility] Work Phone: Start: 04-15-2025 End: 04-15-2025 ambulatory Sheri Bennett WEATHER TEACHER-C Work Phone: -Pulmonary Services/Neurology Start: 04-15-2025 End: 04-15-[address] Dinora Torres DO -Pulmonary Services/Neurology Work Phone: Start: 04-15-2025 End: 04-15-2025 ambulatory Sheri Bennett Facility:[facility] Start: 01-18-2025 End: 01-18-2025 Patient encounter procedure Zeke Pineda WEATHER TEACHER-C -[facility] Work Phone: Start: 01-18-2025 End: 01-18-2025 ambulatory Zeke Pineda WEATHER TEACHER Facility:[facility] [place] Start: 11-03-2024 End: 11-03-2024 ambulatory Sheri Bennett Facility:[facility] Start: 10-06-2024 End: 10-06-2024 ambulatory Sheri Bennett Facility:[facility] Start: 08-21-2024 End: 08-21-2024 ambulatory Sheri Bennett Facility:[facility] Start: 12-31-2023 Non-patient / Non-visit WEATHER TEACHER-C Sheri Bennett Work Phone: [facility] Start: 12-31-2023 End: 12-31-2023 ambulatory WEATHER TEACHER-C Sheri Bennett Work Phone: [facility] Work Phone: Start: 12-31-2023 End: 12-31-2023 Patient encounter procedure WEATHER TEACHER-C Sheri Bennett Work Phone: [facility]Cardi[facility] Work Phone: Start: 12-03-2023 End: 12-03-2023 ambulatory WEATHER TEACHER-C Sheri Bennett Work Phone: [facility] Work Phone: Start: 12-03-2023 End: 12-03-2023 Patient encounter procedure WEATHER TEACHER-C Sheri Bennett Work Phone: [facility] Work Phone: Start: 11-27-2023 End: 11-27-2023 Emergency department patient visit SHERI BENNETT [facility] Start: 11-27-2023 End: 11-27-2023 ambulatory WEATHER TEACHER-C Sheri Bennett Work Phone: [facility] Work Phone: Start: 11-27-2023 End: 11-27-2023 Patient encounter procedure WEATHER TEACHER-C Sheri Bennett Work Phone: [facility]/Neurology Work Phone: Start: 11-07-2023 End: 11-07-2023 Patient encounter procedure WEATHER TEACHER-C Sheri Bennett Work Phone: [facility] Work Phone: Start: 04-25-2023 End: 04-25-2023 ambulatory [facility] Work Phone: Start: 04-25-2023 End: 04-25-2023 Patient encounter procedure [facility] Work Phone: Start: 04-23-2023 End: 04-23-2023 Annotation/Addendum Sara Carter Switch Cleaner al Medicine Start: 04-21-2023 End: 04-21-2023 Emergency department patient visit [facility] Work Phone: Start: 01-28-2023 End: 01-28-2023 Annotation/Addendum Sara Guptavilmasantino Carter [facility] Start: 01-26-2023 End: 01-26-2023 Patient encounter procedure [facility] Work Phone: Start: 01-21-2023 ambulatory Sara Horner [facility] Start: 01-21-2023 End: 01-26-2023 Office outpatient visit 15 minutes Sara Carter [facility] Start: 01-21-2023 Review Sara Guptavilmasantino Watters [facility] Start: 06-22-2019 End: 06-22-2019 Office outpatient visit 15 minutes Sara Carter [facility] Start: 06-22-2019 Review Sara Guptavilmasantino Watters [facility] Start: 02-17-2019 End: 02-17-2019 Office outpatient visit 15 minutes Sara Carter [facility] Start: 02-17-2019 Review Sara Horner [facility] Start: 08-19-2018 End: 08-19-2018 Office outpatient visit 25 minutes Sara Carter [facility] Start: 05-20-2018 End: 05-20-2018 Office outpatient visit 15 minutes Sara Carter [facility] Start: 05-09-2018 End: 05-09-2018 Annotation/Addendum Sara Carter [facility] Start: 05-06-2018 End: 05-06-2018 Annotation/Addendum Sara Guptavilmasantino Carter [facility] Start: 05-06-2018 End: 05-06-2018 Office outpatient visit 25 minutes Sara Carter [facility] Start: 08-23-2017 End: 08-23-2017 Office outpatient visit 10 minutes Sara Carter [facility] Start: 08-05-2017 End: 08-05-2017 Annotation/Addendum Sara Carter [facility] Start: 06-25-2017 End: 06-25-2017 Office outpatient visit 15 minutes Sara Carter [facility] Start: 03-30-2016 End: 03-30-2016 Phone Encounter Sara Carter [facility] Start: 03-28-2016 End: 03-28-2016 Office outpatient visit 15 minutes Sara Horner [facility] Start: 02-07-2016 End: 02-07-2016 Annotation/Addendum Sara Horner [facility] Start: 02-06-2016 End: 02-06-2016 Office outpatient visit 15 minutes Sara Horner [facility] Start: 04-04-2015 End: 04-04-2015 Office outpatient visit 25 minutes Sara Siri [facility] Start: 03-21-2015 End: 03-21-2015 Office outpatient new 45 minutes [facility] Internal Medicine Procedures Date Procedure Procedure Detail Performing Clinician Start: 04-15-2025 X-ray of esophagus with double contrast Sheri ALBERTS Work Phone: Start: 05-02-2023 End: 05-02-2023 Cardiology Visit Report Procedure Note: See Note; NOTES: [facility] 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 Follow Up: 12-15 Months (DRUM STOCK CLERK) 6-7 Months (WEATHER TEACHER/PA) Coding Level of Care Code Off vis,est,level 3 Diagnoses Palpitations R00.2 Essential hypertension I10 Coding Level of Care Code Off vis,est,level 3 Diagnoses Palpitations R00.2 Essential hypertension I10 05/02/23 1537 <Electronically signed by Zeke Pineda NP WEATHER TEACHER-C> Date ___ Zeke Pineda NP WEATHER TEACHER-C Cosigner Signature: Date ___ (if applicable) CC: WEATHER TEACHER-C Sheri Bennett Sara Horner Start: 04-21-2023 MRI of orbit, face and neck with contrast Start: 04-21-2023 End: 04-21-2023 Orbit Face Neck W/WO Contrast Procedure Note: See Note; NOTES: [facility] Imaging Services [address] [place] [address] Orbit Face Neck W/WO Contrast MR#: [id number] Acct: [id number] Name: BRIDGER PAREDES Rep #: [id number] : 1980 M 42 From: Timoteo Kaufman PCP: YULIYA ChenC Status: REG ER Study: Orbit Face Neck W/WO Contrast Date of Exam: Exam# [id number] Ordering Dr: Jr Benítez MD EXAM: MR [...] 17:17 EDT Reading Location ID and State: [facility] / [place] , Service support , CC: ARISTEO Bennett; Dr. Jr Benítez MD Hotel Operation Manager: Signed Sara Horner Start: 04-21-2023 End: 04-21-2023 Emergency Department Summary Procedure Note: See Note; NOTES: [facility] Medical Records Department [address] [place] [address] Emergency Department Summary 04/21/23 MR#: [id number] Acct: [id number] Name: BRIDGER PAREDES Rep #: [id number] : 1980 42 From: Jr Benítez MD PCP: YULIYA ChenC Status:DEP ER Location: ED HPI History of [...] it on a Saturday this Mr. Percy Paredes with the optic nerve inflammation his obesity he said he saw you on in the office you diagnosed him with suspected optic nerve inflammation. Patient states he feels like it is getting worse. 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 Osborne. If possible she would like [...] Moving all 4 extremities. 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 Dorsi plantarflexion intact. Subjective decreased vision [...] DAILY Qty: 90 3RF Primary Care Provider: Sheri Bennett Referrals: Angélica Osborne MD [Med Staff - Active Staff] - As soon as possible Sheri Bennett, ALEX-C [Primary Care Provider] - Activity Restrictions/Additional Instructions: [...] problems, contact your Primary Care Provider. Call [facility] ([phone]) or report to the closest Emergency Room. Call 911 if necessary. 04/21/232137 <Electronically signed by Jr Benítez MD> Cosigner Signature (if applicable): CC: WEATHER TEACHER-C Sheri Bennett Signed Sara Horner Start: 01-12-2022 End: 03-01-2022 Cardiology Visit Report Procedure Note: See Note; NOTES: [facility] [address] [place] [address] OFFICE VISIT Date of Service: 01/12/22 MR#: [id number] Acct: [id number] Name: BRIDGER PAREDES Rep #: [id number] : 1980 Provider: Dr. 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 by: Self Allergies duloxetine [From Cymbalta] Allergy (Severe, Verified 01/12/22 13:17) foggy Penicillins Adverse Reaction (Severe, Verified 01/12/22 13:17) Diarrhea, Vomiting Medications amlodipine 2.5 mg tablet 2.5 mg PO DAILY #90 tab 12/14/20 [Rx Confirmed 01/12/22] [facility] Medical History Carpal tunnel syndrome on right [...] problems Cardio Chest Pain: No Palpitations: Yes (every once in a while) feels like its: skipping Edema: None Muscle [...] <Electronically signed by Romain Leiva MD> Date ___ Romain Leiva MD Cosigner Signature: Date ___ (if applicable) CC: WEATHER TEACHERMichealC Sara Horner Start: 08-01-2020 End: 08-01-2020 Cardiology Visit Report Procedure Note: See Note; NOTES: [facility] [address] [place] [address] OFFICE VISIT Date of Service: 08/01/20 MR#: [id number] Acct: [id number] Name: BRIDGER PAREDES Rep #: [id number] : 1980 Provider: Dr. 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 [place], [place] [address] OFFICE VISIT Date of Service: 07/27/19 MR#: [id number] Acct: [id number] Name: BRIDGER PAREDES Rep #: [id number] : 1980 Provider: Romain Leiva MD Age/Sex: 38/M Location: [facility] Status: Signed HPI 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 by: Self Allergies duloxetine [...] <Electronically signed by Romain Leiva MD> Date ___ Romain Leiva MD Cosigner Signature: Date ___ (if applicable) CC: WEATHER TEACHER-C Sara Horner Start: 06-22-2019 End: 06-22-2019 Elbow min 3 Views Comments: See Note; NOTES: [facility] Imaging Services [address] [place], [place] [address] [address] Elbow min 3 Views MR#: [id number] Acct: [id number] Name: BRIDGER PAREDES #: [id number] : 1980 M 38 From: Peter Arango MD PCP: ARISTEO Riddle Status: REG CLI Study: Elbow min 3 Views Date of Exam: 06/22/19 Exam# [id number] Ordering Dr: Sara Horner WEATHER TEACHERRenata STUDY: X-RAY - RIGHT ELBOW REASON FOR EXAM: Male, 38 years old. Pain TECHNIQUE: 3 view(s) of the elbow. COMPARISON: None. ___ FINDINGS: The bones of the elbow are intact and located. Mineralization is normal. Soft tissues are intact. There is no joint effusion. ___ RAD/Elbow min 3 Views IMPRESSION: Normal x-ray examination of the elbow. Electronically Signed: Peter Arango, at 19:46 EDT Tel , Service support , CC: ARISTEO Horner Hotel Operation Manager: Signed Bette Siri Work Phone: Start: 07-01-2018 End: 07-01-2018 Stress Test Echo w/ Contrast Comments: See Note; NOTES: [facility] Cardiovascular Services [address] [place] [address] Stress Test Echo w/o Contrast MR#: [id number] Acct: [id number] Name: BRIDGER PAREDES Rep #: [id number] : 1980 37 From: Romain Leiva MD [...] Evie Tripathi, MELODIE, RVT 07/01/18 1351 Date ___ Romain Leiva MD CC: Sara Horner WEATHER TEACHER; Romain Leiva MD Date Dictated: 07/01/18 1058 Date Transcribed: 07/01/18 135 Hotel Operation Manager: Signed Romain Leiva Work Phone: Start: 06-19-2018 End: 06-19-2018 Cardiology Visit Report Comments: See Note; NOTES: [facility] [address] [place] [address] OFFICE VISIT Date of Service: 06/19/18 MR#: [id number] Acct: [id number] Name: BRIDGER PAREDES Rep #: [id number] : 1980 Provider: Romain Leiva MD Age/Sex: 37/M Location: [facility] Status: Signed HPI HPI Details: BRIDGER PAREDES, is a 37 M who presents [...] noted concerns of neck chest and shoulder kasnjqjval-tcur-pkikw. He notes that he can exert himself [...] Pressure 124/86 H Intake Visit Reasons: Ref M. Ciesa palpitations Allergies duloxetine [From Cymbalta] Allergy (Severe, Verified 06/19/18 16:09) foggy Penicillins Adverse Reaction (Severe, Verified 06/19/18 16:09) Diarrhea, Vomiting Medications NK 06/19/18 [History Confirmed 06/19/18] [facility] Medical History Premature supraventricular beats (Acute) [...] problems Cardio Chest Pain: Yes Character: other (needles, tightness) Onset: at rest, exercise Location: left [...] alcohol, and nicotine as well as any rhuq-mdu-owxdzsy decongestants. It was not felt he need [...] Chest pain R07.9 Essential hypertension I10 06/19/18 6148 <Electronically signed by Romain Leiva MD> Date ___ Romain Leiva MD Cosigner Signature: Date ___ (if applicable) CC: Sara Horner Start: 06-19-2018 End: 06-19-2018 12 Lead EKG performed by [facility] Comments: See Note; NOTES: [facility] [address] [place] [address] 12 Lead EKG performed by [facility] 06/19/18 1620 MR#: [id number] Acct: [id number] Name: BRIDGER PAREDES Rep #: [id number] : 1980 37 From: Romain Leiva MD Attending Dr: Romain Leiva MD Status: DEP [facility] Ordering Dr: Romain Leiva MD Date: 06/19/18 Location: [facility] Sex: M C Admitted: BMS/12 Lead EKG performed by [facility] ECG Report Interpretation Sinus Rhythm Poor R wave progressionElectronically signed on 06/19/2018 at 18:31 by Romain Leivawood [employer] Version 8610 06/19/181835 Date ___ Romain Leiva MD CC: Sara Horner NP Date Dictated: 06/19/181619 Date Transcribed: 06/19/181619 Hotel Operation Manager: PM Signed Romain Leiva Work Phone: Start: 05-06-2018 End: 05-06-2018 Chest PA and Lateral Comments: See Note; NOTES: [facility] Imaging Services [address] [place] [address] Chest PA and Lateral MR#: [id number] Acct: [id number] Name: BRIDGER PAREDES Rep #: [id number] : 1980 M 37 From: Caden Stewart MD PCP: Sara Horner NP Status: REG CLI Study: Chest PA and Lateral Date of Exam: 05/06/18 Exam# [id number] Ordering Dr: Sara Horner STUDY: X-RAY CHEST REASON FOR EXAM: Male, 37 years old. Shortness of breath TECHNIQUE: Frontal and lateral views of the chest COMPARISON: None. ___ FINDINGS: The lungs are clear. There are no pleural effusions. There is no pneumothorax. The heart is normal in size. The visualized osseous structures are within normal limits. ___ RAD/Chest PA and Lateral IMPRESSION: No acute thoracic pathology. Electronically Signed: Caden Stewart, at 18:56 EDT Tel , Service support , CC: Sara Horner NP Hotel Operation Manager: Signed Sara Horner Work Phone: Start: 08-14-2017 End: 08-14-2017 NCS and/or EMG Patient Comments: See Note; NOTES: [facility] Pulmonary Services/Neurology [address] [place] [address] MR#: [id number] Acct: [id number] Name: BRIDGER PAREDES Rep #: [id number] : 1980 36 From: Joshua Donis MD Referring Dr: Sara Horner Status: REG CLI Ordering Dr: Date: Location: [facility] Sex: M C NCS and/or EMG Patient [...] <Electronically signed by Joshua Donis MD> Date ___ Joshua Donis MD CC: Sara Horner; Joshua Donis MD Date Dictated: 08/14/17 1015 Date Transcribed: 08/14/171014 Hotel Operation Manager: NF Signed Sara Horner Start: 06-25-2017 End: 06-26-2017 Shoulder min 2 Views Comments: See Note; NOTES: [facility] Imaging Services [address] [place] [address] Shoulder min 2 Views MR#: [id number] Acct: [id number] Name: BRIDGER PAREDES Rep #: [id number] : 1980 M 36 From: Iftikhar Mendoza MD PCP: Sara Horner Status: REG CLI Study: Shoulder min 2 Views Date of Exam: 06/25/17 Exam# [id number] Ordering Dr: Sara Horner STUDY: X-RAY - RIGHT SHOULDER REASON FOR EXAM: Male, 36 years old. Shoulder pain. TECHNIQUE: 4 view(s) of the shoulder. COMPARISON: None. ___ FINDINGS: Normal glenohumeral articulation. Normal acromioclavicular joint. Normal acromion. Normal humeral head and visualized proximal humerus. The soft tissue structures are unremarkable. Normal visualized pulmonary apex. ___ RAD/Shoulder min 2 Views IMPRESSION: Normal x-ray examination of the shoulder. Electronically Signed: Iftikhar Mendoza MD at 15:02 EDT Tel [phone], Service support , CC: Sara Horner Hotel Operation Manager: Signed Sara Horner Work Phone: Start: 04-20-2015 End: 04-20-2015 Stress Test Echo w/o Contrast Comments: See Note; NOTES: [facility] Cardiovascular Services [address] [place] [address] STRESS TEST REPORT 04/20/15 1243 MR#: [id number] Acct: [id number] Name: BRIDGER PAREDES Rep #: [id number] : 1980 34 From: Lokesh Haynes MD Primary Care: Sara Horner Status: REG CLI Ordering Dr: Lokesh Haynes MD Service Date: [...] Evie Tripathi, MELODIE, RVT 04/20/15 1512 Date ___ Lokesh Haynes MD CC: Sara Horner; Lokesh Haynes MD Date Dictated: 04/20/15 1243 Date Transcribed: 04/20/151511 Hotel Operation Manager: Signed Sara Horner Start: 04-08-2015 End: 04-08-2015 Echocardiogram Complete Comments: See Note; NOTES: [facility] Cardiovascular Services [address] [place] [address] Echo Complete 04/07/15 1324 MR#: [id number] Acct: [id number] Name: BRIDGER PAREDES Rep #: [id number] : 1980 34 From: Lokesh Haynes MD Attending Dr: Lokesh Haynes MD Status: REG I Ordering Dr: Lokesh Haynes MD Date: 04/07/15 Location: [facility] Sex: M C Admitted: Procedure This was [...] Doppler Measurements AND Calculations MV E max kulwinder: Lat Peak E' Kulwinder: Med Peak E' Kulwinder: Ao V2 max: 88.0 cm/sec 19.5 cm/sec 16.5 cm/sec 137.0 cm/sec MV A max kulwinder: Ao max P.5 mmHg 53.6 cm/sec MV [...] Performed By: JACOB De Leon 04/07/151654 Date ___ Lokesh Haynes MD CC: Sara Horner; Lokesh Haynes MD Date Dictated: 04/07/15 1324 Date Transcribed: 04/07/151654 Hotel Operation Manager: Signed Sara Horner Ophthalmic examination and evaluation Kervin Ma Comment on above: Normal. 08/28- Dr Guaman Ophthalmic examination and evaluation Kervin Ma Comment on above: Normal. 08/28- Dr Guaman Ophthalmic examination and evaluation Kezia Sarkar LPN Comment on above: Normal. 08/28- Dr Guaman Tonsillectomy Kervin Ma Comment on above: 2 years old Tonsillectomy Kervin Ma Comment on above: 2 years old Tonsillectomy Kezia RAMÍREZ Comment on above: 2 years old Plan of Treatment Date Care Activity Detail Author Start: 06-22-2025 End: 06-22-2025 Evaluation of diagnostic study results [facility] Start: 06-22-2025 Stress echocardiography [facility] Start: 06-22-2025 Thyroid stimulating hormone measurement [facility] Start: 04-25-2023 Fluorescent treponemal antibody absorption test [facility] Start: 04-25-2023 Procedure [facility] Start: 04-25-2023 [facility] Start: 01-28-2023 Assay of erythropoietin ERYTHROPOIETIN (04059) : [facility]; [facility] Work Phone: Start: 01-28-2023 CBC, PLATELETS & MANUAL DIFF (85060) : Do around CBC, PLATELETS & MANUAL DIFF (43698) : [facility]; [facility] Work Phone: Start: 01-21-2023 25 hydroxy includes fractions if performed CALCIFEDIOL (84505) [facility]; [facility] Work Phone: Start: 01-21-2023 Blood count complete auto&auto difrntl wbc CBC, PLATELETS & AUT DIFF (48658) [facility]; [facility] Work Phone: Start: 01-21-2023 Comprehensive metabolic panel METABOLIC PANEL, COMPREHENSIVE (57331) [facility]; [facility] Work Phone: Start: 01-21-2023 Lipid panel LIPID PANEL (45520) [facility]; [facility] Work [...] 02-17-2019 Hepatic function panel HEPATIC FUNCTION PANEL (93089) [facility] Work Phone: Comment on above: Apr today Start: 02-17-2019 Patient Education Ringworm: tinea corporis [facility] Work Phone: Start: 02-17-2019 Procedure Education Eprescribed prescriptions (G8553) [facility] Work Phone: Start: 08-19-2018 Procedure Education Eprescribed prescriptions (G8553) [facility] Work Phone: Start: 08-19-2018 Provider Instructions for Treatment Follow up if no improvement or if symptoms worsen [facility] Work Phone: Start: 05-20-2018 Procedure Education Eprescribed prescriptions (G8553) [facility] Work Phone: Start: 05-20-2018 Provider Instructions for Treatment Follow up in 3 months [facility] Work Phone: Start: 05-06-2018 Procedure Education Eprescribed prescriptions (G8553) [facility] Work Phone: Start: 05-06-2018 Provider Instructions for Treatment Follow up in 2 weeks [facility] Work Phone: Start: 08-23-2017 Patient Education Carpal Tunnel Syndrome: Brief Version *: carpal tunnel [facility] Work Phone: Start: 08-23-2017 Procedure Education Eprescribed prescriptions (G8553) [facility] Work Phone: Start: 08-23-2017 Provider Instructions for Treatment [facility] Work Phone: Start: 06-25-2017 Procedure Education Eprescribed prescriptions (G8553) [facility] Work Phone: Start: 06-25-2017 Provider Instructions for Treatment [facility] Work Phone: Start: 03-28-2016 Procedure Education Eprescribed prescriptions (G8553) [facility] Work Phone: Start: 02-06-2016 Procedure Education Eprescribed prescriptions (G8553) [facility] Work Phone: Start: 02-06-2016 Provider Instructions for Treatment Follow up in 6 weeks [facility] Work Phone: Start: 03-21-2015 Blood count complete auto&auto difrntl wbc CBC, Platelets & Auto Diff (08991) [facility] Work Phone: Start: 03-21-2015 25 hydroxy includes fractions if performed CALCIFEDIOL (12494) [facility] Work Phone: Start: 03-21-2015 Comprehensive metabolic panel METABOLIC PANEL, COMPREHENSIVE (26505) [facility] Work Phone: Start: 03-21-2015 Assay of thyroid stimulating hormone tsh TSH (62763) [facility]; [facility] Work Phone: Start: 03-21-2015 Thyrotropin Qn TSH (82780) [facility] Work Phone: Start: 03-21-2015 Provider Instructions for Treatment [facility] Work Phone: Albumin/Globulin [Ma ss Ratio] in Serum or Plasma by Electrophoresis [facility] Angiotensin converti ng enzyme [Enzymatic activity/volume] in Serum or Plasma [facility] Bartonella henselae IgG Ab [Presence] in Serum [facility] Bartonella henselae IgM Ab [Presence] in Serum [facility] Bartonella chu IgG Ab [Presence] in Serum [facility] Bartonella chu IgM Ab [Presence] in Serum [facility] Basic metabolic 2008 panel with ionized calcium - Serum or Plasma [facility] CBC W Auto Different ial panel - Blood [facility] Electrophoresis: albumin [facility] Electrophoresis: ypalq-0-ggopdpvz [facility] Electrophoresis: uqkmf-0-kjohcezm [facility] Electrophoresis: [place] ma globulin [facility] Globulin measurement [facility] HLA-B27 [Presence] b y GERRI with probe detection [facility] In-vitro immunologic test [facility] Mycobacterium tuberculosis tuberculin stimulated gamma interferon [Presence] in Blood [facility] Neutrophil cytoplasm ic Ab.classic [Units/volume] in Serum [facility] P-ANCA measurement [facility] Patient Education ED Blurred Vision [facility] Work Phone: Patient referral [facility] Work Phone: Protein electrophore sis panel - Serum or Plasma [facility] Serum protein electrophoresis [facility] Total globulins measurement [facility] Toxoplasma gondii Ig G Ab [Units/volume] in Serum [facility] Toxoplasma gondii Ig M Ab [Units/volume] in Serum [facility] Work Phone: [facility] Work Phone: [facility] Work Phone: [facility] Work Phone: [facility] Work Phone: [facility] Work Phone: Payers Date Payer Category Payer Self-pay [id number] 2022 Unknown [id number] 2018 Unknown [id number] 2015 Unknown [id number] 1980 Unknown [id number] 2.16.84 [id number] 1980 Unknown [id number] 2.16.8 [id number] Unknown Unknown [id number] 2.16.8 [id number] Unknown [id number] 2.16.8 [id number] Unknown [id number] 2.16.8 [id number] Unknown [id number] 2.16.8 [id number] Unknown [id number] 2.16.8 [id number] Unknown [id number] 2.16.8 [id number] Unknown [id number] 2.16.8 [id number] Unknown [id number] 2.16.8 [id number] Unknown [id number] 2.16.8 [id number] Social History Date Type Detail Facility Alcohol Use: Drinks beer. [facility] Work Phone: Comment on above: 6 pk qw Exercise History: Exercises regularly. 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 [facility] Work Phone: Comment on above: 2 cans qw- since Alcohol Use: Alcohol Use: [facility] Work Phone: Comment on above: 6 pk qw Exercise History: Exercise History: Compr ehens[facility] Internal Medicine; [facility] Work Phone: Tobacco Use: Tobacco Use: [facility]; [facility] Work Phone: Comment on above: 2 cans qw- since Start: 04-21-2023 End: 11-07-2023 Tobacco smoking status NHIS Unknown if ever smoked [facility] Start: 1980 Sex Assigned At Male [facility] Start: 11-07-2023 Tobacco smoking stat us NHIS Never smoked tobacco (finding) [facility] Sex Male [facility] Clinical Notes 04-21-2023 to 04-15-2025 Note Date & Type Note Facility 04-15-2025 Radiology Diagnostic study note [facility] Imaging Services [address], [place] [address] Esophagus Dual Contrast MR#: [id number] Acct: [id number] Name: BRIDGER PAREDES Rep #: [id number] : 1980 M 44 From: Rylan Vdies MD PCP: Sheri Bennett, WEATHER TEACHER-C Status: REG C DARIO Study:Esophagus Dual Contrast Date of Exam: 04/15/25 Exam# [id number] Ordering Dr: Antonella Torres DO EXAM: Single and double contrast esophagram. CLINICAL HISTORY: Feels as if medicines gets stuck at the epigastric level, symptoms for approximately 8 months. COMPARISON: None. TECHNIQUE: Single and double contrast esophagram. Fluoroscopy time: 113 seconds. Dose: 28.9 mGy FINDINGS: No hiatal hernia is seen. No area of persistent esophageal narrowing is noted. No mucosal abnormality is seen. A widely patent esophagogastric junction is noted. Easy passage of the 13 mm barium tablet into the stomach was seen. During the time of imaging, no gastroesophageal reflux was elicited. Limited imaging of the stomach and duodenum show no acute process. 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 RAD/Esophagus Dual Contrast IMPRESSION: No significant abnormality is identified. Reading Location: [place] [address] CC: ARISTEO Bennett; Dr. Dinora Torres, DO ~ Hotel Operation Manager: Signed [facility] 01-18-2025 Evaluation note Diagnosis Onset Date Resolution DIANE (obstructive sleep apnea) acute January 18, 2025 2: 29pm Palpitations acute January 18 2:29pm Essential hypertension chronic Ma y 2024 2:29pm [facility] Work Phone: 1(172) 699-300708-06-2023 Hospital Discharge instructions Additional Instructions MRI was read as normal. I spoke to Dr. Osborne. Call her office and follow-up with her in 1 to 2 weeks.[facility] Work Phone: Evalusqxem noteNo assessment information available [facility] Work Phone: Evalunkjvz note* Diagnosis Onset Date Resolution Status Palpitations acute Essential hypertension chron ic [facility] Work Phone: Evaluation note* Diagnosis Onset Date Resolution Status Admit Date Fatigue acute June 22, 2 025 2:51pm Irregular heart beat acute 2024 2:51pm DIANE (obstructive sleep apnea) acute June 22, 2025 2:51pm Palpitations acute June 22, 2025 2:51pm Premature supraventricular beats acu te June 22, 2025 2:51pm Essential hypertension chronic Oc tob2024 2:51pm [facility] Work Phone: Instructions* Name Dates Details Patient Instructions Indication:Anxiety Start:21-Jan-2023 Instruction Type:Provider Instructions for Treatment How to Access Health Informa tion Online using Patient Portal and 3rd [employer] Apps Indication:Anxiety Start:21-Jan-2023 Instruction Type:Patient Education How to access health [...] level Start:04-Apr-2015 Instruction Type:Provider Instructions for Treatment [facility]; [facility] Work Phone: Instructions* Name Dates Details Patient Instructions Indication:Anxiety Start:21-Jan-2023 Instruction Type:Provider Instructions for Treatment How to Access Health Informa tion Online using Patient Portal and 3rd [employer] Apps Indication:Anxiety Start:21-Jan-2023 Instruction Type:Patient Education How to access health [...] level Start:04-Apr-2015 Instruction Type:Provider Instructions for Treatment [facility]; [facility] Work Phone: Instructions* Name Dates Details Patient Instructions Indication:Anxiety Start:21-Jan-2023 Instruction Type:Provider Instructions for Treatment How to Access Health Informa tion Online using Patient Portal and 3rd [employer] Apps Indication:Anxiety Start:21-Jan-2023 Instruction Type:Patient Education How to access health [...] level Start:04-Apr-2015 Instruction Type:Provider Instructions for Treatment [facility]; [facility] Work Phone: Instructions* Name Dates Details Patient Instructions Indication:Anxiety Start:21-Jan-2023 Instruction Type:Provider Instructions for Treatment How to Access Health Informa tion Online using Patient Portal and 3rd [employer] Apps Indication:Anxiety Start:21-Jan-2023 Instruction Type:Patient Education How to access health [...] level Start:04-Apr-2015 Instruction Type:Provider Instructions for Treatment [facility]; [facility] Work Phone: Instructions* Name Dates Details Patient Instructions Indication:Anxiety Start:21-Jan-2023 Instruction Type:Provider Instructions for Treatment How to Access Health Informa tion Online using Patient Portal and [employer] Apps Indication:Anxiety Start:21-Jan-2023 Instruction Type:Patient Education How to access health [...] level Start:04-Apr-2015 Instruction Type:Provider Instructions for Treatment [facility]; [facility] Work Phone: reason for referral (narrative)No reason for referral [facility] Work Phone: Family History No Family History Records FoundUnknown Family Member Name Dates Details Father Comments:- [...] Advance Directives No Advanced Directives Records Found Advance Directive Response Recorded Date/ Time Living Will No April 21, 2023 1:50pm Power of Food Science Technician No April 21 1:50pm Advance Directive Response Recorded Date/ Time Living Will No April 21, 2023 1:50pm Do you have a Healthcare Power of Food Science Technician? No April 21, 2023 1:50pm Chief Complaint and Reason for Visit Chief Complaint EYE PROBLEM Chief Complaint 6 m fu PALP EORDERS Reason for Visit Palpitations Essential hypertension Chief Complaint 6 m fu PALP EORDERS PALPITATIONS Reason for Visit Palpitations Essential hypertension Chief Complaint Admit Date 7 M FU January 18, 2025 2:29pm bradycardia,DYSPHAGIA *13MM TABLET* April 15, 2025 8:07am bradycardia,DYSPHAGIA *13MM TABLET* April 15, 2025 8:58am Reason for Visit Admit Date DIANE (obstructive sleep apnea) January 18, 025 2:29pm Palpitations January 18, 2025 2:29pm Essential hypertension January 18, 2025 2:2 9pm Chief Complaint Admit Date bradycardia,DYSPHAGIA *13MM TABLET* April 15, 2025 8:07am bradycardia,DYSPHAGIA *13MM TABLET* April 15, 2025 8:58am F/U MED CHANGE, SEE NOTES June 22, 025 2:51pm Reason for Visit Admit Date Fatigue June 22, 2025 2: 51pm Irregular heart beat June 22, 2025 2 :51pm DIANE (obstructive sleep apnea) June 2:51pm Palpitations June 22, 2025 2: 51pm Premature supraventricular beats June 22, 2025 2:51pm Essential hypertension June 22, 2025 2:51pm Additional Source Comments (unrecognized sect ion and content) No Status Records FoundNo Status Records FoundNo Status Records Found INFORMATION SOURCE (unrecogn ized section and content) DATE CREATED AUTHOR 01/22/2023 [facility] DATE CREATED AUTHOR AUTHOR'S ORGANIZ ATION 12/02/2023 [facility] DATE CREATED AUTHOR AUTHOR'S ORGANIZ ATION 07/27/2025 [facility] Care Teams (unrecognized sec tion and content) Team Status: Active Member Role Status Dates Sara Norrissantino WEATHER TEACHER, WEATHER TEACHER-C Family Provider Active Sheri Bennett , WEATHER TEACHER-C Primary Care Provider Active Team Status: Inactive Member Role Status Dates Sheri Bennett , WEATHER TEACHER-C Primary Care Provi cesia, Attending Provider, Referring Provider Active Team Status: Inactive Member Role Status Dates Sheri Bennett , WEATHER TEACHER-C Primary Care Provider Active Dr. Jr Benítez MD Emergency Provider Active Team Status: Inactive Member Role Status Dates Sheri Bennett , WEATHER TEACHER-C Primary Care Provider Active Dr. Jr Benítez MD Attending Provider, Emergency Pro vider Active Team Status: Inactive Member Role Status Dates Sheri Bennett , WEATHER TEACHER-C Primary Care Provider Active Wandy LEIVA Attending Provider, Referring Provider Active Team Status: Inactive Member Role Status Dates Sheri Bennett , WEATHER TEACHER-C Primary Care Provider, Referring Provider Active Zeke Pineda WEATHER TEACHER, WEATHER TEACHER-C Attending Provider Active Team Status: Inactive Member Role Status Dates Sheri Bennett , WEATHER TEACHER-C Primary Care Provider Active Zeke Pineda WEATHER TEACHER, WEATHER TEACHER-C Attending Provider, Referring Pro vider Active Team Status: Active Member Role Status Dates Sheri Bennett , WEATHER TEACHER-C Primary Care Provider Active Zeke Pineda WEATHER TEACHER, WEATHER TEACHER-C Attending Provider, Referring Pro vider Active Team Status: Active Member Role Status Dates Sheri Bennett , WEATHER TEACHER-C Primary Care Provider Active Dr. James Campbell MD Attending Provider Active Team Status: Active Member Role/Relationship Status Dates Sheri Bennett , WEATHER TEACHER-C Primary Care Provider Active Team Status: Inactive Member Role/Relationship Status Dates Sheri Bennett , WEATHER TEACHER-C Primary Care Provider Active Start: January 18, 2025 End: January 18, 2025 Sheri Bennett , WEATHER TEACHER-C Referring Provider Active Start: January 18, 2025 End: January 18, 2025 Zeke Pineda WEATHER TEACHER, WEATHER TEACHER-C Attending Provider Active S tart: January 18, 2025 End: January 18, 2025 Team Status: Inactive Member Role/Relationship Status Dates Sheri Bennett , WEATHER TEACHER-C Primary Care Provider Active Start: April 15, 2025 End: April 15, 2025 Dr. Dinora Torres DO Attending Provider Active Start: April 15, 2025 End: April 15, 2025 Dr. Dinora Torres DO Referring Provider Active Start: April 15, 2025 End: April 15, 2025 Team Status: Active Member Role/Relationship Status Dates ARISTEO Chen Primary Care Provider Active Start: April 15, 2025 Dr. James Campbell MD Attending Provider Active S tart: April 15, 2025 Dr. Dinora Torres DO Referring Provider Active Start: April 15, 2025 Team Status: Active Member Role/Relationship Status Dates ARISTEO Chen Primary care physician Active Team Status: Inactive Member Role/Relationship Status Dates ARISTEO Chen Primary care physician Active Start: April 15, 2025 End: April 15, 2025 Dr. Dinora Torres DO Attending physician Active Start: April 15, 2025 End: April 15, 2025 Dr. Dinora Torres DO Referring Provider Active Start: April 15, 2025 End: April 15, 2025 Team Status: Active Member Role/Relationship Status Dates ARISTEO Chen Primary care physician Active Start: April 15, 2025 Dr. James Campbell MD Attending physician Active Start: April 15, 2025 Dr. Dinora Torres DO Referring Provider Active Start: April 15, 2025 Team Status: Inactive Member Role/Relationship Status Dates ARISTEO Chen Primary care physician Active Start: June 22, 2025 End: June 22, 2025 ARISTEO Chen Referring Provider Active Start: June 22, 2025 End: June 22, 2025 Zeke Pineda NP WEATHER TEACHER-C Attending physician Active Start: June 22, 2025 End: June 22, 2025 Goals (unrecognized section and content) Goals may be documented in a n alternate sectionGoals may be documented in an alternate sectionGoals may be documented in an alternate sectionGoals may be documented in an alternate sectionGoals may be documented in an alternate sectionGoals may be documented in an alternate sectionGoals may be documented in an alternate section FOR RECORDS PERTAINING TO PATIENTS WHO ARE [...] BE BASED ON THE PRIMARY CLINICAL RECORDS. [facility]. provides no warranty or guarantee of the accuracy or completeness of information in this document.
--- NOTE | 2025-08-24 08:21 | STRESSREP ---
Stress Test Report Exercise myocardial perfusion stress test. 44-year-old male with a history of chest pain. Stress protocol: Resting EKG demonstrates normal sinus rhythm with a rate of 66 bpm resting blood pressure is 134/72 mmHg. The patient exercised according to the regular Pb protocol for a total duration of 11 minutes attaining a maximum heart rate of 144 bpm which was 82% of maximum predicted heart rate; the maximum workload was 13.7 metabolic equivalents. At rest there were no ST or T wave changes noted to suggest ischemia and at peak exercise upsloping ST changes only were noted which did not meet the criteria for ischemia. No clinical angina was noted the test was terminated due to the target heart rate being achieved/fatigue. The peak blood pressure was 164/64 mmHg. Rate-pressure product was 22,800. Myocardial perfusion protocol. 14.5 mCi of technetium 99m sestamibi was injected at rest. The patient exercised according to regular Pb protocol for total duration of 11-minute and at peak exercise 44.1 mCi of technetium 99m sestamibi was injected stress images were obtained stress and rest images were reconstructed in comparing the short axis vertical long and horizontal long axis. Gated images were also obtained. Perfusion SPECT analysis: Review of the stress images demonstrate normal uptake of tracer noted in all areas of the myocardium. The resting images similarly demonstrate normal uptake of tracer noted in all areas of the myocardium. No areas of reversibility are noted to suggest ischemia no previous infarct was noted. Gated SPECT analysis: The gated ejection fraction is 70% %. Conclusion: Normal exercise myocardial perfusion stress test at a high workload.
== END | disposition home or self-care (01) ==
LOC: CVS 06:01
PROVIDERS: PCP Nurse Practitioner Family; Referring Provider Nurse Practitioner Family; Visit Provider Nurse Practitioner Family
DX: R07.9 Chest pain, unspecified (principal); I49.1 Atrial premature depolarization; R00.2 Palpitations; I10 Essential (primary) hypertension; G47.33 Obstructive sleep apnea (adult) (pediatric); I49.9 Cardiac arrhythmia, unspecified; R53.83 Other fatigue; I49.3 Ventricular premature depolarization
CPT/HCPCS: 78452; 93017; 93306; A9500; A4216